=== PATIENT | female | born 1995 | race Caucasian/White ===

== ENCOUNTER → 2019-08-08 10:50 | Outpatient (REF) | payer BC, SELFPAY | LOC: ANHLAB 10:50 | PROVIDERS: Visit Provider Nurse Practitioner Family | DX: D49.2 Neoplasm of unspecified behavior of bone, soft tissue, and skin (principal) | CPT/HCPCS: 88305 ==

== ENCOUNTER 2020-09-09 09:03 | Emergency (ER) | payer OTHER, SELFPAY ==
--- NOTE | 2020-09-09 09:09 | ED.GENADULT ---
HPI - General Adult General Chief complaint: Back Pain/Injury Stated complaint: LOW BACK PAIN/CHEST TIGHTNESS Time Seen by Provider: 09/09/20 09:09 Source: patient Mode of arrival: ambulatory Limitations: no limitations History of Present Illness HPI narrative: 25-year-old female patient presents to the [facility] with complaints of some low back pain that started yesterday as well as some chest tightness that started early this morning. Patient states that she was treated for UTI back in July. Patient states she gets UTIs often. Patient states when she had a UTI at that time she had burning with urination and pain with urination but denies any low back pain at that time. Patient states she started having low back pain yesterday but denies any urinary symptoms. Denies any nausea, vomiting or diarrhea. Denies any fevers, body aches or chills. Patient denies any new exercises or doing any physical labor to where she could have injured her back. Patient denies taking any Tylenol or ibuprofen for her back pain. Patient rates her back pain about a 4 out of 10. Patient denies any numbness or tingling down the legs or any loss of bowel or bladder control. Patient states she has been having trouble sleeping lately and states that she woke up last night with some chest tightness that lasted for about 2 minutes. Patient does have history of anxiety that she is medicated for. Patient denies any chest pain, shortness of breath at this time. Denies any abdominal pain, nausea, vomiting or diarrhea. Related Data Home Medications Medication Instructions Recorded Confirmed venlafaxine 37.5 mg 37.5 mg PO DAILY 07/24/19 capsule,extended release 24 hr bupropion HCl mg PO 09/09/20 clonazepam 09/09/20 lamotrigine 09/09/20 Allergies Allergy/AdvReac Type Severity Reaction Status Date / Time amoxicillin Allergy Unknown hives, Verified 07/24/19 09:04 fever Penicillins Allergy Unknown hives, Verified 07/24/19 09:04 fever Review of Systems Review of Systems: Narrative: CONSTITUTIONAL: Denies fever, chills, or sweats. EYES: Denies visual changes, redness, or discharge. ENT: Denies rhinorrhea, congestion, sore throat, or otalgia. CARDIOVASCULAR: Positive chest pain, denies palpitations, or edema. RESPIRATORY: Denies cough or dyspnea. GASTROINTESTINAL: Denies abdominal pain, nausea, vomiting, or diarrhea. GENITOURINARY: Denies dysuria or hematuria. SKIN: Denies rash or itching. MUSCULOSKELETAL: Positive low back pain, denies joint pain, or myalgia. NEUROLOGIC: Denies headache, numbness, or weakness. PSYCHIATRIC: Denies anxiety or depression. [facility] Past Medical History Medical History (Updated 09/09/20 @ 09:29 by JUNIOR Richter) Anxiety Asthma Exercise-induced Thyroid nodule Surgical History Surgical History (Updated 09/09/20 @ 09:10 by JUNIOR Richter) Hx of tonsillectomy Family History Family History Grandparent Family history of malignant neoplasm of breast Social History Social History Smoking status: Never smoker Alcohol intake: never Comments At the time of my signature I agree with nursing past medical history, surgical, social, and family history. There is no relevant family history pertinent to the presenting complaint. Exam Narrative: Exam Narrative: GENERAL: Well-appearing, well-nourished, and in no acute distress. HEAD: Normocephalic, atraumatic. EYES: PERRLA and EOMI. ENT: Nares clear, no rhinorrhea or epistaxis. Mucous membranes moist. NECK: Supple. No lymphadenopathy CHEST: Clear to auscultation. No respiratory distress. Patient able talk in clear complete sentences. No tripoding noted. HEART: Regular rate and rhythm. No murmur heard. Normal peripheral pulses. ABDOMEN: Soft, nontender, nondistended, normal active bowel sounds. No CVA tenderness on percussion BA
[2020-09-09 09:15] VITALS: BP 120/55; PULSE 78; RESP 20; TEMP 37.3; O2SAT 100
== END 2020-09-09 09:35 | disposition home or self-care (01) ==
PROVIDERS: Emergency Provider Nurse Practitioner Family
DX: F41.9 Anxiety disorder, unspecified (principal); M54.5 Low back pain; J45.990 Exercise induced bronchospasm
CPT/HCPCS: 81003; 87086; 99213; G0463

== ENCOUNTER → 2021-06-14 11:48 | Outpatient (CLI) | payer OTHER, SELFPAY ==
--- NOTE | ~2021-06-14 | US_ITS ---
EXAMINATION: US thyroid EXAM DATE: 06/14/2021 12:01 INDICATION: Nontoxic multinodular goiter TECHNIQUE: Multiple grayscale and Doppler images of the thyroid were obtained (by a technologist who performed the scan) and subsequently reviewed. Individual nodules and recommendations may be reporte d in accordance with TI-RADS system as designated by the 2017 ACR White Paper TI-RADS committee. The re is no prior study for comparison. FINDINGS: The right thyroid lobe measures 4.5 x 1.3 x 1.4 cm, the left measuring 4.0 x 1.0 x 1.3 cm. There is h omogeneous thyroid echogenicity without focal suspicious nodule identified. IMPRESSION: 1. Unremarkable thyroid ultrasound exam. Reviewed, dictated and finalized at location A. [employer]
== END ==
PROVIDERS: PCP Internal Medicine; Visit Provider Internal Medicine
DX: E04.2 Nontoxic multinodular goiter (principal)
CPT/HCPCS: 76536

== ENCOUNTER 2022-07-21 11:24 | Emergency (ER) | payer OTHER, SELFPAY ==
[2022-07-21 11:35] VITALS: BP 110/69; PULSE 89; RESP 16; TEMP 37.2; O2SAT 100
--- NOTE | 2022-07-21 11:44 | ED.ABDPAIN ---
HPI - Abdominal Pain General Chief Complaint: Abdominal Pain Stated Complaint: vomitting, diarrhea, abdominal pain; Time Seen by Provider: 07/21/22 11:45 Source: patient and RN notes reviewed Mode of arrival: ambulatory Limitations: no limitations History of Present Illness HPI narrative: 26-year-old female who is 29 weeks presents with concern of for an episode of vomiting yesterday an episode of diarrhea last night. She has since been having mild left upper quadrant discomfort. She reports fatigue, body aches. Denies fever, chills, sweats, nasal congestion, rhinorrhea. Reports mild cough. She denies taking any medications for her symptoms. She denies known sick contacts. MD elicited complaint: abdominal pain Related Data Home Medications Medication Instructions Recorded Confirmed venlafaxine 37.5 mg 37.5 mg PO DAILY 07/24/19 capsule,extended release 24 hr (Effexor XR) bupropion HCl 300 mg 24 hr tablet, mg PO 09/09/20 extended release clonazepam 1 mg tablet 09/09/20 lamotrigine 200 mg tablet 09/09/20 vits no.130-ferrous fum 1 tablet PO DAILY 07/21/22 07/21/22 27 mg iron-folic acid 800 mcg tablet ( Vitamin) Allergies Allergy/AdvReac Type Severity Reaction Status Date / Time amoxicillin Allergy Unknown hives, Verified 07/21/22 11:51 fever Penicillins Allergy Unknown hives, Verified 07/21/22 11:51 fever Review of Systems Review of Systems: CONSTITUTIONAL: Reports malaise, fatigue. Denies chills, sweats, or fever. ENT: Denies rhinorrhea, congestion, sinus pain, otalgia or sore throat. CARDIOVASCULAR: Denies chest pain, palpitations, or edema. RESPIRATORY: Reports mild cough. Denies dyspnea. GASTROINTESTINAL: Reports left upper quadrant abdominal pain,, 1 episode of vomiting 1 episode of diarrhea. GENITOURINARY: Denies dysuria or hematuria. MUSCULOSKELETAL: Denies myalgia. NEUROLOGIC: Reports headache. All systems reviewed & are unremarkable except as noted in HPI and below PMFSH Past Medical History Medical History (Updated 07/21/22 @ 11:56 by Jessica Fulton NP) Anxiety Asthma Exercise-induced Thyroid nodule Surgical History Surgical History (Updated 09/09/20 @ 09:10 by JUNIOR Richter) Hx of tonsillectomy Family History Family History Grandparent Family history of malignant neoplasm of breast Social History Social History Smoking status: Never smoker Alcohol intake: never Comments At time of signature, agree with nursing past medical, surgical, social and family history. There is no relevant family history pertinent to the presenting complaint Exam Narrative: GENERAL: Well-appearing, well-nourished, and in no acute distress. HEAD: Normocephalic, atraumatic. EYES: PERRLA, conjunctivae clear, and EOMI. ENT: Nares clear, turbinates pink, no rhinorrhea or epistaxis. Mucous membranes moist. Oropharynx without edema, erythema, or lesions. Tonsils not enlarged and without exudate. NECK: Supple. No lymphadenopathy CHEST: Speaks in full sentences. No respiratory distress. HEART: Regular rate and rhythm. ABDOMEN: Mild left upper quadrant tenderness. No guarding, rebound tenderness, or rigidity. Bowel sounds present in all four quadrants. SKIN: Warm, dry, no rash. NEURO: Alert and oriented x3. PSYCH: Normal mood and affect Course Course Emergency Course: Patient is aware of diagnosis, understands and agrees to treatment plan. Anticipatory guidance given. Patient agrees to follow-up as directed and is aware of reasons to seek care at the emergency department. Portions of this record may have been created with voice recognition software Level of Care: Express Care Visit Vital Signs Vital signs: Vital Signs Temperature 98.9 F 07/21/22 11:35 Pulse Rate 89 07/21/22 11:35 Respiratory Rate 16
== END 2022-07-21 12:12 | disposition home or self-care (01) ==
PROVIDERS: Emergency Provider Nurse Practitioner; PCP Internal Medicine
DX: O26.893 Other specified pregnancy related conditions, third trimester (principal); Z3A.29 29 weeks gestation of pregnancy; R10.12 Left upper quadrant pain; Z20.822 Contact with and (suspected) exposure to COVID-19; O99.513 Diseases of the respiratory system complicating pregnancy, third trimester; J45.990 Exercise induced bronchospasm
CPT/HCPCS: 87426; 87804; 99213; C9803; G0463

== ENCOUNTER 2025-04-12 21:13 | Emergency (ER) | payer OTHER, SELFPAY ==
--- OUTSIDE RECORDS SUMMARY | 2025-04-11 09:00 | XMS_ITS | Encounter Summary ---
Author Organization [facility] Address [address] [place] [address] Phone Care Team Providers Care Linen Checker Name Role Phone Chari Slater MD Unavailable Lurdes Stanford MD Unavailable [phone] Ning Alamo NP Unavailable Bella Shukla Primary Care Pr ovider Srikanth Bray MD Unavailable [phone] Encounter Details Date Type Department Care Team (Late st Contact Info) Description 04/11/2025 9:00 AM CDT Office Visit [facility] [address] [place] [address] Norma Padilla PA [address] [place] [address] Arthralgia, unspecified joint (Primary Dx); Encounter for long-term (current) use of medications; Chronic fatigue Social History Tobacco Use Types Packs/Day Years Used Date Smoking Tobacco: Never Smokeless Tobacco: Never [facility] Utilities Answer Date Recorded In the past 12 months has [facility] [email or web address], gas, oil, or water [employer] threatened to shut off services in your home? No 01/19/2024 Humiliation, Afraid, Rape, and Kick questionnair e Answer Date Recorded Within the last year, have y ou been afraid of your partner or ex-partner? No 01/19/2024 Within the last year, have y ou been humiliated or emotionally abused in other ways by your partner or ex-partner? No Within the last year, have y ou been kicked, hit, slapped, or otherwise physically hurt by your partner or ex-partner? No 01/19/2024 Within the last year, have y ou been raped or forced to have any kind of sexual activity by your partner or ex-partner? No 01/19/2024 Social Connection and Isolation Panel Answer Date Recorded In a typical week, how many times do you talk on the phone with family, friends, or neighbors? Three times a week 01/19/2024 How often do you get togethe r with friends or relatives? Three times a week 01/19/2024 How often do you attend chur ch or church services? Never 01/19/2024 Do you belong to any clubs o r organizations such as islam groups, unions, fraternal or athletic groups, or school groups? No 01/19/2024 How often do you attend meet ings of the clubs or organizations you belong to? Never 01/19/2024 Are you , , di vorced, , never , or living with a partner? Never 01/19/2024 AUDIT-C Answer Date Recorded Q1: How often do you have a drink containing alc ohol? 2-4 times a month 12/16/2024 Q2: How many drinks containi ng alcohol do you have on a typical day when you are drinking? 1 or 2 12/16/2024 Q3: How often do you have si x or more drinks on one occasion? Never 12/16/2024 Overall Financial Resource Strain (CARDIA) Answe r Date Recorded How hard is it for you to pa y for the very basics like food, housing, medical care, and heating? Not hard at all 01/19/2024 PHQ-2 Answer Date Recorded PHQ-2 Total Score (If total score is 3 or more points, staff should administer the PHQ-9) 0 03/20/2024 [facility] - Occupational Stress Questionnaire Answer Date Recorded Do you feel stress - tense, restless, nervous, or anxious, or unable to sleep at night because your mind is troubled all the time - these days? Rather much 01/19/2024 Exercise Vital Sign Answer Date Recorde d On average, how many days pe r week do you engage in moderate to strenuous exercise (like a brisk walk)? 1 day 01/19/2024 On average, how many minutes do you engage in exercise at this level? 30 min 01/19/2024 Hunger Vital Sign Answer Date Recorded Within the past 12 months, y ou worried that your food would run out before you got the money to buy more. Never true 01/19/20 24 Within the past 12 months, t he food you bought just didn't last and you didn't have money to get more. Never true 01/19/2024 PRAPARE - Transportation Answer Date Re corded In the past 12 months, has l ack of transportation kept you from medical appointments or from getting medications? No 01/07 In the past 12 months, has l ack of transportation kept you from meetings, work, or from getting things needed for daily living? No 01/19/2024 Housing Stability Vital Sign Answer Tomasz e Recorded In the last 12 months, was t here a time when you were not able to pay the mortgage or rent on time? No 10/02/2022 In the last 12 months, how many places have you lived? 1 10/02/2022 In the last 12 months, was t here a time when you did not have a steady place to sleep or slept in a chcf (including now)? No 10/02/2022 PHQ-9 Answer Date Recorded PHQ-9 Total Score 0 01/19/2024 Housing Stability Vital Sign Answer Tomasz e Recorded In the last 12 months, was t here a time when you were not able to pay the mortgage or rent on time? No 01/19/2024 In the past 12 months, how m any times have you moved where you were living? 0 01/19/2024 At any time in the past 12 m [facility], were you homeless or living in a chcf (including now)? No 01/19/2024 Personal Safety Answer Date Recorded Have you ever been in or are you currently in a harmful physical or emotional relationship or is someone making you feel afraid or unsafe? Denies 06/13/2024 Comments No Sex and Gender Information Value Date Recorded Sex Assigned at Not on file Legal Sex Female 10:26 PM [employer] Gender Identity Not on file Sexual Orientation Not on file documented as of this encounter Last Filed Vital Signs Vital Sign Reading Time Taken Comments Blood Pressure 112/66 04/11/2025 9:03 AM CDT Pulse 84 04/11/2025 9:03 AM CDT Temperature - - Respiratory Rate - - Oxygen Saturation 96% 04/11/2025 9:03 AM CDT Inhaled Oxygen Concentration - - Weight 65.3 kg (144 lb) 04/11/2025 9:03 AM CDT Height 175.3 cm (5' 9) 04/11/2025 9:03 AM CDT Body Mass Index 21.27 04/11/2025 9:03 AM CDT documented in this encounter Progress Notes * Norma Padilla PA - 04/11/2025 9:00 AM CDT Images from the original note were not included. Subjective/Objective Patient ID: Ghazal Bragg is a 29 y.o. female. Chief Complaint Joint pain HPI She has been on hcq for a month but so far has not noticed if her joint pain or stiffness have improved. She has not had any side effects to hcq so far. Denies rashes, diarrhea, tinnitus, pruritus. No hx of sob, kerr, dyspagia. She has appt for her eye exam this month. No infections. She still has daily chronic fatigue. Has to go home at lunch (lives 10 min from work) to take a 30 to 40 minute nap. She gets 8 h of sleep at night and at night has to take melatonin to fall asleep. 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 She types all day, is wearing wrist splints at night to help with hand pain. No hand numbness or tingling of hands. No infections. Does not fall asleep at wheel or sitting. Has not fallen asleep at work. Last pcp had her on adderall which helped fatigue but new pcp does not want to prescribe it since pt does not have dx of add or adhd. No hx of narcolepsy. No hx of sleep apnea. Review of Systems Constitutional: Negative for fatigue and fever. HENT: Negative for mouth sores. Respiratory: Negative for cough, chest tightness and shortness of breath. Cardiovascular: Negative for chest pain. Skin: Negative for rash. Physical Exam Constitutional: She appears well-developed and well-nourished. Head: Normocephalic and atraumatic. Right Ear: External ear normal. Left Ear: External ear normal. Nose: Nose normal. Mouth/Throat: Oropharynx is clear and moist. Eyes: Conjunctivae and lids are normal. Pupils are equal, round, and reactive to light. Neck: Neck supple. Cardiovascular: Normal rate, regular rhythm and normal heart sounds. Pulmonary/Chest: Effort normal and breath sounds normal. Musculoskeletal: see cdai. Lymphadenopathy: No lymphadenopathy. Neurological: Alert and oriented x 3. Skin: Skin is warm and dry. Psychiatric: Normal mood. Vitals reviewed. CDAI: 16 Labs Lab Results Component Value Date WBC 7.8 02/24/2025 HGB 14.0 02/24/2025 HCT 43.8 02/24/2025 MCV 97.1 02/24/2025 Lab Results Component Value Date GLUCOSE 87 02/24/2025 CALCIUM 9.4 02/24/2025 SODIUM 137 02/24/2025 POTASSIUM 4.0 02/24/2025 CO2 28 02/24/2025 CHLORIDE 102 02/24/2025 BUNSER 7 02/24/2025 CREATININE 0.65 02/24/2025 Lab Results Component Value Date ALT 26 02/24/2025 AST 17 02/24/2025 ALKPHOS 57 02/24/2025 BILITOT 0.6 02/24/2025 Lab Results Component Value Date SEDRATE 2 02/24/2025 Lab Results Component Value Date CRP <3.0 02/24/2025 Assessment/Plan Diagnoses and all orders for this visit: Arthralgia, unspecified joint (Primary) Assessment & Plan: Mod cdai. Not sure her joint pain has improved yet but only on hcq for 1 month. Will give it another 2 months and recheck rt hand US. Has hx of high anastasia and + centromere antibody with minimal joint swelling and lot of joint pain and chronic fatigue. Pt does not presently have symptoms of scleroderma except some kerr. We referred tej 03/14/2025 for pft's and Echo but has not done them yet, they are scheduled in a week. Cxr wnl 02/25/2025. On 03/2025 started starting hydroxychloroquine 200mg po every day for her symptoms. Advised her again to get eye exam including oct every year and at start of hcq with opth. F/u in 2 months to recheck labs. She is also requesting that we fill out form for her school to accommodate her symptoms. Previous history: Lupus should be considered although minimal joint swelling. If her pft's or echo are abnormal scleroderma is also a possible diagnosis. Denies dysphagia, has constipation, no skin changes or sclerodactyly on exam. 2 year hx of joint pain and chronic fatigue. Has vaginal dryness, + ANASTASIA. Previous history: US right hand/wrist (02/28/25): 1. No significant joint effusions, power doppler, synovial thickening, tendinopathy, or erosive changes appreciated on US examination. Labs/Imaging 02/2025 [facility]ise panel ---+ ANASTASIA 1:5120/>150. + anti centromere protein B 56 (neg <7). EXAM DESCRIPTION: 1. XR HAND LEFT 3 OR MORE VIEWS 2. XR HAND RIGHT 3 OR MORE VIEWS; 3. XR FOOT RIGHT 3 OR MORE VIEWS; 4. XR FOOT LEFT 3 OR MORE VIEWS; 5. XR SPINE CERVICAL 2 OR 3 VIEWS; 6. XR SPINE LUMBAR 2 OR 3 VIEWS Cervical spine: No acute fracture. No prevertebral soft tissue swelling. Alignment is normal. The intervertebral disc space heights are normal. Lumbar spine: No acute fracture. Alignment is normal. The intervertebral disc space heights are normal. Hands: No erosions. No acute fracture. Alignment is normal. The joint spaces are normal. No dorsal wrist soft tissue swelling. Feet: No erosions. No acute fracture. The joint spaces are normal. IMPRESSION: 1. No radiographic evidence of inflammatory arthritis. 2. Normal cervical and lumbar spine evaluation. 3. Normal bilateral hand and foot evaluation. Orders: - Urinalysis reflex to microscopic; Future - Erythrocyte sedimentation rate; Future - CBC with auto differential; Future - C4 complement; Future - C3 complement; Future - CRP (acute phase); Future - Comprehensive metabolic panel; Future - Protein / creatinine ratio, urine, random; Future - Anti-double stranded DNA abs; Future Encounter for long-term (current) use of medications Assessment & Plan: [facility]ise panel ---+ ANASTASIA 1:5120/>150. + anti centromere protein B 56 (neg <7). Cxr neg 02/25/2025 Referred for echo and PFT's 03/14/2025 Orders: - Urinalysis reflex to microscopic; Future - Erythrocyte sedimentation rate; Future - CBC with auto differential; Future - C4 complement; Future - C3 complement; Future - CRP (acute phase); Future - Comprehensive metabolic panel; Future - Protein / creatinine ratio, urine, random; Future - Anti-double stranded DNA abs; Future Chronic fatigue Assessment & Plan: She still has daily chronic fatigue. Has to go home at lunch (lives 10 min from work) to take a 30 to 40 minute nap. She gets 8 h of sleep at night and at night has to take melatonin to fall asleep. 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 Does not fall asleep at wheel or sitting. Has not fallen asleep at work. Last pcp had her on adderall which helped fatigue but new pcp does not want to prescribe it since pt does not have dx of add or adhd. No hx of narcolepsy. No hx of sleep apnea. Advised her to discuss this with pcp, may need another referral to sleep specialist and see if provigil may be an option for her daily fatigue/sleepiness. Tsh, testosterone wnl. Cortisol was low but unsure of collection time. Labs checked by pcp. Cbc wnl. Cosigned by Srikanth Bray MD at 04/11/2025 4:58 PM CDT documented in this encounter Miscellaneous Notes * Assessment & Plan Note - Norma Padilla PA - 04/11/2025 12:37 PM CDTAssociated Problem(s): Chronic fatigue She still has daily chronic fatigue. Has to go home at lunch (lives 10 min from work) to take a 30 to 40 minute nap. She gets 8 h of sleep at night and at night has to take melatonin to fall asleep. 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 Does not fall asleep at wheel or sitting. Has not fallen asleep at work. Last pcp had her on adderall which helped fatigue but new pcp does not want to prescribe it since pt does not have dx of add or adhd. No hx of narcolepsy. No hx of sleep apnea. Advised her to discuss this with pcp, may need another referral to sleep specialist and see if provigil may be an option for her daily fatigue/sleepiness. Tsh, testosterone wnl. Cortisol was low but unsure of collection time. Labs checked by pcp. Cbc wnl. * Assessment & Plan Note - Norma Padilla PA - 04/11/2025 8:13 AM CDTAssociated Problem(s): Arthralgia Mod cdai. Not sure her joint pain has improved yet but only on hcq for 1 month. Will give it another 2 months and recheck rt hand US. Has hx of high anastasia and + centromere antibody with minimal joint swelling and lot of joint pain and chronic fatigue. Pt does not presently have symptoms of scleroderma except some kerr. We referred tej 03/14/2025 for pft's and Echo but has not done them yet, they are scheduled in a week. Cxr wnl 02/25/2025. On 03/2025 started starting hydroxychloroquine 200mg po every day for her symptoms. Advised her again to get eye exam including oct every year and at start of hcq with opth. F/u in 2 months to recheck labs. She is also requesting that we fill out form for her school to accommodate her symptoms. Previous history: Lupus should be considered although minimal joint swelling. If her pft's or echo are abnormal scleroderma is also a possible diagnosis. Denies dysphagia, has constipation, no skin changes or sclerodactyly on exam. 2 year hx of joint pain and chronic fatigue. Has vaginal dryness, + ANASTASIA. Previous history: US right hand/wrist (02/28/25): 1. No significant joint effusions, power doppler, synovial thickening, tendinopathy, or erosive changes appreciated on US examination. Labs/Imaging 02/2025 Avise panel ---+ ANASTASIA 1:5120/>150. + anti centromere protein B 56 (neg <7). EXAM DESCRIPTION: 1. XR HAND LEFT 3 OR MORE VIEWS 2. XR HAND RIGHT 3 OR MORE VIEWS; 3. XR FOOT RIGHT 3 OR MORE VIEWS; 4. XR FOOT LEFT 3 OR MORE VIEWS; 5. XR SPINE CERVICAL 2 OR 3 VIEWS; 6. XR SPINE LUMBAR 2 OR 3 VIEWS Cervical spine: No acute fracture. No prevertebral soft tissue swelling. Alignment is normal. The intervertebral disc space heights are normal. Lumbar spine: No acute fracture. Alignment is normal. The intervertebral disc space heights are normal. Hands: No erosions. No acute fracture. Alignment is normal. The joint spaces are normal. No dorsal wrist soft tissue swelling. Feet: No erosions. No acute fracture. The joint spaces are normal. IMPRESSION: 1. No radiographic evidence of inflammatory arthritis. 2. Normal cervical and lumbar spine evaluation. 3. Normal bilateral hand and foot evaluation. * Assessment & Plan Note - Norma Padilla PA - 04/11/2025 8:11 AM CDTAssociated Problem(s): Encounter for long-term (current) use of medications Avise panel ---+ ANASTASIA 1:5120/>150. + anti centromere protein B 56 (neg <7). Cxr neg 02/25/2025 Referred for echo and PFT's 03/14/2025 documented in this encounter Plan of Treatment Not on file documented as of this encounter Procedures Procedure Name Priority Date/Time Associated Diagnosis Comments ANTI-DOUBLE STRANDED DNA ANTIBODIES Routine 04/11/2025 9:53 AM CDT Arthralgia, unspecified joint Encounter for long-term (current) use of medications C4 COMPLEMENT Routine 04/11/2025 9:53 AM CDT Arthralgia, unspecified joint Encounter for long-term (current) use of medications URINALYSIS AND REFLEX TO MICROSCOPIC Routine 04/11/2025 9:53 AM CDT Arthralgia, unspecified joint Encounter for long-term (current) use of medications CBC WITH AUTO DIFFERENTIAL Routine 04/11/2025 9:53 AM CDT Arthralgia, unspecified joint Encounter for long-term (current) use of medications PROTEIN / CREATININE RATIO, URINE, RANDOM Routine 04/11/2025 9:53 AM CDT Arthralgia, unspecified joint Encounter for long-term (current) use of medications ERYTHROCYTE SEDIMENTATION RATE Routine 04/11/2025 9:53 AM CDT Arthralgia, unspecified joint Encounter for long-term (current) use of medications C3 COMPLEMENT Routine 04/11/2025 9:53 AM CDT Arthralgia, unspecified joint Encounter for long-term (current) use of medications CRP (ACUTE PHASE) Routine 04/11/2025 9:5 3 AM CDT Arthralgia, unspecified joint Encounter for long-term (current) use of medications COMPREHENSIVE METABOLIC PANEL Routine 04/11/2025 9:53 AM CDT Arthralgia, unspecified joint Encounter for long-term (current) use of medications documented in this encounter Results * Anti-double stranded DNA abs (04/11/2025 9:53 AM CDT) DNA (DS) ab <1 IU/mL [facility] Comment: IU/mL Interpretation < or = 4 Negative 5-9 Indeterminate > or = 10 Positive Blood 04/11/2025 9:53 AM CDT 04/11/2025 9:54 AM CDT Norma CANTOR LAB BLOOD ORDERAB LES Final Result Performing Organization Address City/[facility] Co de Phone Number [facility] [employer] [facility] [address] [place] [address] * (ABNORMAL) Protein / creatinine ratio, urine, random (04/11/2025 9:53 AM CDT) Pathologist [facility] Creatinine, ur 63 20 - 275 mg/dL [facility] Protein/creatin ine ratio 63 24 - 184 mg/g creat [facility] Protein/Creatin ine Ratio 0.063 0.024 - 0.184 mg/mg creat [facility] Protein, ur, quant 4(L) 5 - 24 mg/dL [facility] Urine 04/11/2025 9:53 AM CDT 04/11/2025 9:54 AM CDT Norma CANTOR LAB URINE ORDERAB LES Final Result Performing Organization Address [facility] Co de Phone Number [facility] [employer] [facility] [address] [place] [address] * Comprehensive metabolic panel (04/11/2025 9:53 AM CDT) Pathologist [facility] Glucose 84 65 - 99 mg/dL [facility] Comment: Fasting reference interval BUN 9 7 - 25 mg/dL [facility] Creatinine 0.67 0.50 - 0.96 mg/dL [facility] eGFR 122 > OR = 60 mL/min/1.7 3m2 [facility] BUN/creat ratio SEE NOTE: 6 - 22 (calc) [facility] Comment: Not Reported: BUN and Creatinine are within reference range. Sodium 139 135 - 146 mmol/L [facility] Potassium, pl 4.2 3.5 - 5.3 mmol/L [facility] Chloride 103 98 - 110 mmol/L [facility] CO2 29 20 - 32 mmol/L [facility] Calcium 9.4 8.6 - 10.2 mg/dL [facility] Protein, sr 7.3 6.1 - 8.1 g/dL [facility] Albumin 4.8 3.6 - 5.1 g/dL [facility] GLOBULIN 2.5 1.9 - 3.7 g/dL (calc) [facility] Alb/glob ratio 1.9 1.0 - 2.5 (calc) [facility] Bilirubin, total 0.4 0.2 - 1.2 mg/dL [facility] Alk phos 54 31 - 125 U/L [facility] AST 17 10 - 30 U/L [facility] ALT (SGPT) 21 6 - 29 U/L [facility] Blood 04/11/2025 9:53 AM CDT 04/11/2025 9:54 AM CDT Noram CANTOR LAB BLOOD ORDERAB LES Final Result [facility] [address] [facility] [place] [address] * CRP (acute phase) (04/11/2025 9:53 AM CDT) C-RP <3.0 <8.0 mg/L [facility] Blood 04/11/2025 9:53 AM CDT 04/11/2025 9:54 AM CDT Norma CANTOR LAB BLOOD ORDERAB LES Final Result Performing Organization Address [facility] de Phone Number [facility] [employer] [facility] [address] [place] [address] * C3 complement (04/11/2025 9:53 AM CDT) Complement component C3C 146 83 - 193 mg/dL [facility] Blood 04/11/2025 9:53 AM CDT 04/11/2025 9:54 AM CDT Norma CANTOR LAB BLOOD ORDERAB LES Final Result Performing Organization Address [facility] de Phone Number [employer] [facility] [address] [place] [address] * C4 complement (04/11/2025 9:53 AM CDT) Complement component C4C 21 15 - 57 mg/dL [facility] Blood 04/11/2025 9:53 AM CDT 04/11/2025 9:54 AM CDT Norma CANTOR LAB BLOOD ORDERAB LES Final Result Performing Organization Address [facility] de Phone Number [employer] [address] [place] [address] * (ABNORMAL) CBC with auto differential (04/11/2025 9:53 AM CDT) WBC 5.7 3.8 - 10.8 Thousand/u L [facility] RBC, POC 4.70 3.80 - 5.10 Million/uL [facility] Hgb 14.4 11.7 - 15.5 g/dL [facility] Hct 45.5(H) 35.0 - 45.0 % [facility] MCV 96.8 80.0 - 100.0 fL [facility] MCH 30.6 27.0 - 33.0 pg [facility] MCHC 31.6(L) 32.0 - 36.0 g/dL [facility] Comment: For adults, a slight decrease in the calculated MCHC value (in the range of 30 to 32 g/dL) is most likely not clinically significant; however, it should be interpreted with caution in correlation with other red cell parameters and the patient's clinical condition. Rdw 11.3 11.0 - 15.0 % [facility] Platelets 309 140 - 400 Thousand/u L [facility] MPV 9.8 7.5 - 12.5 fL [facility] Neutrophils, abs 3,682 1,500 - 7,800 cells/uL [facility] Lymphocytes, abs 1,505 850 - 3,900 cells/uL [facility] Monocyte abs 342 200 - 950 cells/uL [facility] Eosinophils, abs 143 15 - 500 cells/uL [facility] Basophils, abs 29 0 - 200 cells/uL [facility] Neutrophils 64.6 % [facility] Lymphocyte pct 26.4 % [facility] Monocytes 6.0 % [facility] Eosinophils 2.5 % [facility] Basophils 0.5 % [facility] Blood 04/11/2025 9:53 AM CDT 04/11/2025 9:54 AM CDT us Norma CANTOR LAB BLOOD ORDERAB LES Final Result [facility] [address] [address] * Erythrocyte sedimentation rate (04/11/2025 9:53 AM CDT) Erythrocyte sedimentation rate 6 < OR = 20 mm/h [facility] Blood 04/11/2025 9:53 AM CDT 04/11/2025 9:54 AM CDT Norma CANTOR LAB BLOOD ORDERAB LES Final Result Performing Organization Address [facility] Co de Phone Number [facility] [address] [place] [address] * Urinalysis reflex to microscopic (04/11/2025 9:53 AM CDT) Color, ur YELLOW YELLOW [facility] Appearance, ur CLEAR CLEAR [facility] Specific gravity 1.010 1.001 - 1.035 [facility] pH, ur 7.0 5.0 - 8.0 [facility] Glucose, ur NEGATIVE NEGATIVE [facility] Bilirubin, ur NEGATIVE NEGATIVE [facility] Ketones, ur NEGATIVE NEGATIVE [facility] Blood, ur NEGATIVE NEGATIVE [facility] Protein, ur, quant NEGATIVE NEGATIVE [facility] Nitrites, ur NEGATIVE NEGATIVE [facility] Leukocyte esterase, ur NEGATIVE NEGATIVE [facility] Urine 04/11/2025 9:53 AM CDT 04/11/2025 9:54 AM CDT Norma CANTOR LAB URINE ORDERAB LES Final Result Performing Organization Address [facility] [facility] Co de Phone Number [facility] [address] [place] [address] documented in this encounter Visit Diagnoses Diagnosis Arthralgia, unspecified joint- Primary Encounter for long-term (current) use of medications Encounter for long-term (current) use of other medications Chronic fatigue Other malaise and fatigue documented in this encounter Care Teams Linen Checker Relationship Specialty Start Date End Date Bella Shukla PA [address] [place] [address] PCP - General Physician Metalsmith Helper 02/24/25 Chari Slater MD [address] [facility] [address] [place] [address] Consulting Physician Obstetrics and Gynecology 12/12/23 Lurdes Stanford MD [address] [place] [address] Surgeon Medical Oncology 12/12/23 [place] [address] Nurse Practitioner Family Medicine 11/29/24 Srikanth Bray MD [address] [place] [address] Consulting Physician Rheumatology 04/11/25 documented as of this encounter
--- NOTE | ~2025-04-12 | XR_ITS ---
Examination: XR chest 2V Clinical History: chest pain Comparison: None Technique: PA and Lateral Findings: Cardiomediastinal silhouette normal size and configuration. Lungs clear. No acute bony abnormality. IMPRESSION: 1. No acute cardiopulmonary findings. Reviewed, dictated and finalized at location R.
--- NOTE | 2025-04-12 21:15 | ECG_ITS ---
Test Date: 2025-04-12 21:19:03 Measurements Intervals [place] Rate: 103 P: 71 [place]: 163 QRS: 86 QRSD: 110 T: 69 QT: 340 QTc: 447 Interpretive Statements SINUS TACHYCARDIA INCOMPLETE RIGHT BUNDLE BRANCH BLOCK MINIMAL Q WAVES- INFERIOR LEADS ANTERIOR INFARCT, AGE INDETERMINATE ABNORMAL ECG No previous ECG available for comparison Electronically Signed On 04-13-2025 08:15:43 CDT by Deyvi Mcknight D.O.
--- OUTSIDE RECORDS SUMMARY | 2025-04-12 21:16 | XMS_ITS | Encounter Summary ---
Author Organization [facility] Address [facility] [place] [address] Care Team Providers Care Child Protective Services Specialist Name Role Phone Yves Jade MD Primary Care Provider [phone] Encounter Details Date Type Department Care Team (Late st Contact Info) Description 02/08/2022 Trackyt Message Enc [facility] [place] [address] [place] [address] [address] [place] [address] [place] [address] [place] [address] [address] [place] [address] Social History Tobacco Use Types Packs/Day Years Used Date Smoking Tobacco: Never Smokeless Tobacco: Never Comments:counseled by Dr Temitope villanueva Alcohol Use Standard Drinks/Week Comments Yes 0 (1 standard drink = 0.6 oz pur e alcohol) socially PHQ-2 Answer Date Recorded PHQ-2 Score - If the patient scores above 3, please move on to questions 3-9 0 02/02/2022 Comments No Sex and Gender Information Value Date Recorded Sex Assigned at Female 09/11/2024 1:27 PM PAVER OPERATOR Legal Sex Female 2:02 PM PAVER OPERATOR Gender Identity Female 09/11/2024 1:27 PM PAVER OPERATOR Sexual Orientation Straight 09/11/2024 1: 30 PM PAVER OPERATOR COVID-19 Exposure Response Date Recorded In the last 10 days, have yo u been in contact with someone who was confirmed or suspected to have Coronavirus/COVID-19? No / Unsure 02/10/2022 7:50 AM CDT documented as of this encounter Plan of Treatment Not on file documented as of this encounter Visit Diagnoses Not on filedocumented in this encounter Additional Health Concerns Infection Onset Date Last Indicated Resolved Time COVID-19 Rule Out 03/07/2022 03/07/2022 03/07/2022 2:05 PM CDT COVID-19 Rule Out 03/07/2022 03/07/2022 03/09/2022 2:18 AM CDT COVID-19 Confirmed 03/07/2022 03/07/2022 12:32 AM CDT COVID-19 Rule Out 06/13/2022 06/13/2022 06/13/2022 1:31 PM PAVER OPERATOR COVID-19 Rule Out 06/13/2022 06/13/2022 06/14/2022 3:36 PM PAVER OPERATOR COVID-19 Confirmed 06/13/2022 06/13/2022 12:32 AM PAVER OPERATOR COVID-19 Rule Out 09/23/2022 09/23/2022 09/23/2022 1:13 PM CDT Respiratory Rule Out 10/02/2024 10/02/2024 025 10:22 AM CDT Assessment Noted Time PHQ-9 Depression Total Score: 0 08/17/19 22 9:06 AM PAVER OPERATOR documented as of this encounter Care Teams Child Protective Services Specialist Relationship Specialty Start Date End Date Yves Jade MD [address] [address] PCP - General INTERNAL MEDICINE 05/25/21 01/28/25 documented as of this encounter
--- OUTSIDE RECORDS SUMMARY | 2025-04-12 21:16 | XMS_ITS | Clinical Summary ---
Author Organization [facility] Address [address] [address] Care Team Providers Care Chronic Disease Epidemiologist Name Role Phone Unavailable Primary Care Provider Unavailabl e Source Comments [facility],non-owned Affiliates and Associated Physician Practices is amultiple site organization consisting of ambulatory clinics and hospital sitesin [place], [place], [place] and [place]. This disclosure is being madepursuant to the Care Everywhere program and may not contain all information available regarding this patient. Last updated 18.[facility] Allergies Active Allergy Reactions Criticality Noted Date Comments Penicillins Urticaria,Fever Medium 04/01/2020 Medications * Be aware that medications may not be up to date on this document. Alwaysverify current medications with the patient. buPROPion HCl (WELLBUTRIN PO) Acti ve clonazePAM (KLONOPIN) 1 MG tablet TK 1 T PO TID 06/02/2020 Active lamoTRIgine (LAMICTAL) 100 MG tablet TK 1 T PO QAM 06/02/2020 Active Social History Tobacco Use Types Packs/Day Years Used Date Smoking Tobacco: Never Smokeless Tobacco: Never Comments Unknown Sex and Gender Information Value Date Recorded Sex Assigned at Not on file Legal Sex Female 3:39 PM PRODUCTION CONTROL PEGBOARD CLERK Gender Identity Not on file Sexual Orientation Not on file Last Filed Vital Signs Vital Sign Reading Time Taken Comments Blood Pressure 110/60 06/19/2020 5:01 PM PRODUCTION CONTROL PEGBOARD CLERK Pulse 70 08/07/2020 9:17 AM PRODUCTION CONTROL PEGBOARD CLERK Temperature 36.8 C (98.3 F) 08/07/2020 9:17 AM PRODUCTION CONTROL PEGBOARD CLERK Respiratory Rate 20 08/07/2020 9:17 AM PRODUCTION CONTROL PEGBOARD CLERK Oxygen Saturation 97% 06/19/2020 5:01 PM PRODUCTION CONTROL PEGBOARD CLERK Inhaled Oxygen Concentration - - Weight 63.5 kg (140 lb) 08/07/2020 9:17 AM PRODUCTION CONTROL PEGBOARD CLERK Height 175.3 cm (5' 9) 06/19/2020 5:01 PM PRODUCTION CONTROL PEGBOARD CLERK Body Mass Index 20.67 06/19/2020 5:01 PM PRODUCTION CONTROL PEGBOARD CLERK Plan of Treatment Health Maintenance Due Date Last Done Comments HIV SCREENING 2011 HEPATITIS C SCREENING 08/25/2014 DTAP/TDAP/TD VACCINES (1 - Tdap) 2015 HEPATITIS B VACCINE (1 of 3 - 19+ 3-dose series) 2015 HPV VACCINE (1 - 3-dose SCDM series) 2023 DEPRESSION SCREENING 07/10/2024 COVID-19 VACCINE (1 - 2023-2 5 season) 2025 INFLUENZA VACCINE (#1) 2025 ZOSTER VACCINE (1 of 2) 2046 HIB VACCINE Aged Out No longer eligi ble based on patient's age to complete this topic MENINGOCOCCAL (Group B) VACC INE SHARED DECISION-MAKING Aged Out No longer eligibl e based on patient's age to complete this topic MENINGOCOCCAL GROUPS A/C/Y/W VACCINE Aged Out No longer eligible b ased on patient's age to complete this topic PNEUMOCOCCAL VACCINE Aged Out No long er eligible based on patient's age to complete this topic Insurance
--- OUTSIDE RECORDS SUMMARY | 2025-04-12 21:16 | XMS_ITS | Data Portability ---
Author Organization [facility] ZIJill Cantu Address [address] [place] [address] Care Team Providers Care Private Branch Exchange Service Advisor Name Role Phone BELLA SHUKLA Primary Care Provider NURIA Esteban Pediatric Care Coordinator [phone] Assessment No assessment recorded. Plan of Treatment Reminders Order Date Submit Date Provider Last Modified By Organization Details Last Modified Time Details Appointments ANY 15 2024 11:15A M DEVAUGHN Ghosh Not available Not available Not available Lab ANASTASIA (antinucl ear antibodie s) screen, serum 2024 025 [facility], [address], [place], [address], 01/31/2025 17:09:17 vitamin D, 25-hydrox y, total, serum 2024 025 [facility], [address], [place], [address], 01/31/2025 17:09:22 vitamin B12 + folate, serum or blood 2024 025 [facility], [address], [place], [address], 01/31/2025 17:09:20 iron + TIBC + ferritin, serum 2024 025 [facility], [address], [place], [address], 01/31/2025 17:09:13 cortisol, am, serum 2024 025 [facility], [address], [place], [address], 01/31/2025 17:09:19 testoster one, total, serum 2024 025 [facility], [address], [place], [address], 01/31/2025 17:09:22 unlisted lab - thyroid peroxidas e and thyroglob ulin antibodie s 2024 025 [facility], [address], [place], [address], 01/31/2025 17:09:14 T3, free, serum or plasma 2024 025 [facility], [address], [place], [address], 01/31/2025 17:09:21 TSH + free T4, serum 2024 025 [facility], [address], [place], [address], 01/31/2025 17:09:15 CMP, serum or plasma 2024 025 [facility], [address], [place], [address], 01/31/2025 17:09:15 CBC w/ auto diff 2024 025 [facility], [address], [place], [address], 01/31/2025 17:09:16 Referral rheumatol ogist referral 2024 025 WALTER Bray MD, [address], [address], [place], [address], 03/14/2025 15:36:43 Procedures None recorded. Surgeries None recorded. Imaging None recorded. Medication Orders None recorded. Patient TargetsNo targets recorded. 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 Referral for Anti-nuclear factor detected Referring Physician: Bella Shukla, Internal Medicine, Encounter Date: 01/27/2025 Results Created Date Observation Date Name Description Value Unit Range Abnormal Flag Note LastModifiedBy Organization Detail LastModifiedTime 01/14/2001/16/2025 Eryth rocyt e sedim entat ion rate [[place]] in Red Blood Cells erythrocyte sedimentatio n rate [velocity] in red blood cells by westergren method 2 mm/h text: < or = 20 Not Available Not Available 01/24/2025 17:38:11 01/14/2001/16/2025 Eryth rocyt e sedim entat ion rate [[place]] in Red Blood Cells Unknown Analyte Perfor ovidio Organi zation Inform ation: Site ID: Name: [facility] s: [id number] [place] [address] Direct or: Glory-L ieu Thi Vo Not Available Not Available 17:38:11 01/14/2001/16/2025 C react efraín prote in [Mass /volu me] in Serum or Plasm a C reactive protein [mass/volume ] in serum or plasma <5.0 high: 8mg/L Not Available Not Available 01/24/2025 17:38:11 01/14/20 25 01/16/2025 C react efraín prote in [Mass /volu me] in Serum or Plasm a Unknown Analyte Perfor ovidio Organi zation Inform ation: Site ID: Name: [facility] Addres s: [id number] [place] [address] Direct or: Glory[facility]L ieu Thi Vo Not Available Not Available 17:38:11 01/29/2001/31/2025 IRON, TIBC AND RENNY TIN PANEL iron, total 51 mcg/d L 40-190 normal Not Available [address], [address], 01/31/2025 17:09:13 01/29/20 25 01/31/2025 IRON, TIBC AND RENNY TIN PANEL iron binding capacity 351 mcg/d L_(ca lc) 250-45 0 normal Not Available [address], [address], 01/31/2025 17:09:13 01/29/20 25 01/31/2025 IRON, TIBC AND RENNY TIN PANEL % saturation 15 %_(ca lc) 16-45 low Not Available [address], [address], 01/31/2025 17:09:13 01/29/20 25 01/31/2025 IRON, TIBC AND RENNY TIN PANEL ferritin 16 NG/mL 16-154 normal Not Available [address], [address], 01/31/2025 17:09:13 01/29/20 25 01/31/2025 THYRO ID PEROX IDASE AND THYRO GLOBU [place] ANTIB ODIES thyroglobuli n antibodies 1 IU/mL < or = 1 Not Available [address], [address], 01/31/2025 17:09:14 01/29/20 25 01/31/2025 THYRO ID PEROX IDASE AND THYRO GLOBU [place] ANTIB ODIES thyroid peroxidase antibodies 1 IU/mL <9 Not Available [address], [address], 01/31/2025 17:09:14 01/29/20 25 01/31/2025 TSH+F REE T4 TSH 1.13 mIU/L normal Refer ence Range > or = 20 Years 0.40- 4.50 Pregn tom Range s First trime ster 0.26- 2.66 Secon d trime ster 0.55- 2.73 Third trime ster 0.43- 2.91 Not Available [address], [address], 01/31/2025 17:09:14 01/29/2001/31/2025 TSH+F REE T4 T4, free 1.1 NG/dL 0.8-1. 8 normal Not Available [address], [address], 01/31/2025 17:09:14 01/29/2001/31/2025 COMPR EHENS EFRAÍN METAB OLIC PANEL glucose 91 mg/dL 65-99 normal Fasti ng refer ence inter lorie Not Available [address], [address], 01/31/2025 17:09:15 01/29/2001/31/2025 COMPR EHENS EFRAÍN METAB OLIC PANEL urea nitrogen (BUN) 9 mg/dL 7-25 normal Not Available [address], [address], 01/31/2025 17:09:15 01/29/2001/31/2025 COMPR EHENS EFRAÍN METAB OLIC PANEL creatinine 0.57 mg/dL 0.50-0 .96 normal Not Available [address], [address], 01/31/2025 17:09:15 01/29/2001/31/2025 COMPR EHENS EFRAÍN METAB OLIC PANEL eGFR 127 mL/mi n/1.7 3m2 > or = 60 normal Not Available [address], [address], 01/31/2025 17:09:15 01/29/20 25 01/31/2025 COMPR EHENS EFRAÍN METAB OLIC PANEL BUN/creatini ne ratio SEE NOTE: (calc ) 6-22 Not Repor zohaib: BUN and Creat inine are withi n refer ence range . Not Available [address], [address], 01/31/2025 17:09:15 01/29/2001/31/2025 COMPR EHENS EFRAÍN METAB OLIC PANEL sodium 137 mmol/ L 135-14 6 normal Not Available [address], [address], 01/31/2025 17:09:15 01/29/2001/31/2025 COMPR EHENS EFRAÍN METAB OLIC PANEL potassium 4.3 mmol/ L 3.5-5. 3 normal Not Available [address], [address], 01/31/2025 17:09:15 01/29/20 25 01/31/2025 COMPR EHENS EFRAÍN METAB OLIC PANEL chloride 103 mmol/ L 98-110 normal Not Available [address], [address], 01/31/2025 17:09:15 01/29/20 25 01/31/2025 COMPR EHENS EFRAÍN METAB OLIC PANEL carbon dioxide 28 mmol/ L 20-32 normal Not Available [address], [address], 01/31/2025 17:09:15 01/29/20 25 01/31/2025 COMPR EHENS EFRAÍN METAB OLIC PANEL calcium 9.0 mg/dL 8.6-10 .2 normal Not Available [address], [address], 01/31/2025 17:09:15 01/29/20 25 01/31/2025 COMPR EHENS EFRAÍN METAB OLIC PANEL protein, total 6.5 g/dL 6.1-8. 1 normal Not Available [address] [place], [address], 01/31/2025 17:09:15 01/29/2001/31/2025 COMPR EHENS EFRAÍN METAB OLIC PANEL albumin 4.3 g/dL 3.6-5. 1 normal Not Available [address], [address], 01/31/2025 17:09:15 01/29/2001/31/2025 COMPR EHENS EFRAÍN METAB OLIC PANEL globulin 2.2 g/dL_ (calc ) 1.9-3. 7 normal Not Available [address], [address], 01/31/2025 17:09:15 01/29/2001/31/2025 COMPR EHENS EFRAÍN METAB OLIC PANEL albumin/glob ulin ratio 2.0 (calc ) 1.0-2. 5 normal Not Available [address], [address], 01/31/2025 17:09:15 01/29/2001/31/2025 COMPR EHENS EFRAÍN METAB OLIC PANEL bilirubin, total 0.4 mg/dL 0.2-1. 2 normal Not Available [address], [address], 01/31/2025 17:09:15 01/29/2001/31/2025 COMPR EHENS EFRAÍN METAB OLIC PANEL alkaline phosphatase 55 U/L 31-125 normal Not Available [facility] [employer] [address] [address] [place], [address], 01/31/2025 17:09:15 01/29/2001/31/2025 COMPR EHENS EFRAÍN METAB OLIC PANEL AST 12 U/L 10-30 normal Not Available [address], [address], 01/31/2025 17:09:15 01/29/2001/31/2025 COMPR EHENS EFRAÍN METAB OLIC PANEL ALT 12 U/L 6-29 normal Not Available [address], [address], 01/31/2025 17:09:15 01/29/2001/31/2025 CBC (INCL UDES DIFF/ PLT) white blood cell count 4.9 thous and/u L 3.8-10 .8 normal Not Available [address], [address], 01/31/2025 17:09:16 01/29/2001/31/2025 CBC (INCL UDES DIFF/ PLT) red blood cell count 4.20 gary on/uL 3.80-5 .10 normal Not Available [address], [address], 01/31/2025 17:09:16 01/29/2001/31/2025 CBC (INCL UDES DIFF/ PLT) hemoglobin 12.9 g/dL 11.7-1 5.5 normal Not Available [address], [address], 01/31/2025 17:09:16 01/29/2001/31/2025 CBC (INCL UDES DIFF/ PLT) hematocrit 39.8 % 35.0-4 5.0 normal Not Available [address], [address], 01/31/2025 17:09:16 01/29/2001/31/2025 CBC (INCL UDES DIFF/ PLT) MCV 94.8 fL 80.0-1 00.0 normal Not Available [address], [address], 01/31/2025 17:09:16 01/29/2001/31/2025 CBC (INCL UDES DIFF/ PLT) MCH 30.7 pg 27.0-3 3.0 normal Not Available [address], [address], 01/31/2025 17:09:16 01/29/2001/31/2025 CBC (INCL UDES DIFF/ PLT) MCHC 32.4 g/dL 32.0-3 6.0 normal For adult s, a sligh t decre ase in the calcu lated MCHC value (in the range of 30 to 32 g/dL) is most likel y not clini brisa signi fican t; jing er, it shoul d be inter prete d with cauti on in [facility] lat n with other red cell josephine eters and the patie nt's clini bradley condi tion. Not Available [address], [address], 01/31/2025 17:09:16 01/29/2001/31/2025 CBC (INCL UDES DIFF/ PLT) RDW 11.6 % 11.0-1 5.0 normal Not Available [address], [address], 01/31/2025 17:09:16 01/29/2001/31/2025 CBC (INCL UDES DIFF/ PLT) platelet count 249 thous and/u L 140-40 0 normal Not Available [address], [address], 01/31/2025 17:09:16 01/29/2001/31/2025 CBC (INCL UDES DIFF/ PLT) MPV 11.0 fL 7.5-12 .5 normal Not Available [address], [address], 01/31/2025 17:09:16 01/29/2001/31/2025 CBC (INCL UDES DIFF/ PLT) absolute neutrophils 3214 cells /uL 1500-7 800 normal Not Available [facility] [address], [place], [address], 01/31/2025 17:09:16 01/29/2001/31/2025 CBC (INCL UDES DIFF/ PLT) absolute lymphocytes 1220 cells /uL 850-39 00 normal Not Available [address], [address], 01/31/2025 17:09:16 01/29/2001/31/2025 CBC (INCL UDES DIFF/ PLT) absolute monocytes 279 cells /uL 200-95 0 normal Not Available [address], [address], 01/31/2025 17:09:16 01/29/2001/31/2025 CBC (INCL UDES DIFF/ PLT) absolute eosinophils 157 cells /uL 15-500 normal Not Available [address], [address], 01/31/2025 17:09:16 01/29/2001/31/2025 CBC (INCL UDES DIFF/ PLT) absolute basophils 29 cells /uL 0-200 normal Not Available [address], [address], 01/31/2025 17:09:16 01/29/2001/31/2025 CBC (INCL UDES DIFF/ PLT) neutrophils 65.6 % normal Not Available [address], [address], 01/31/2025 17:09:16 01/29/2001/31/2025 CBC (INCL UDES DIFF/ PLT) lymphocytes 24.9 % normal Not Available [address], [address], 01/31/2025 17:09:16 01/29/2001/31/2025 CBC (INCL UDES DIFF/ PLT) monocytes 5.7 % normal Not Available [facility] [address] [address] [place], [address], 01/31/2025 17:09:16 01/29/2001/31/2025 CBC (INCL UDES DIFF/ PLT) eosinophils 3.2 % normal Not Available [facility] [address] [address] [place], [address], 01/31/2025 17:09:16 01/29/2001/31/2025 CBC (INCL UDES DIFF/ PLT) basophils 0.6 % normal Not Available [facility] [address] [address] [place], [address], 01/31/2025 17:09:16 01/29/2001/31/2025 ANASTASIA MULTI PLEX W/REF VIJAYA 11 AB CASCA DE ANASTASIA screen, immunoassay POSITI VE negati ve abnormal A posit efraín ANASTASIA Multi plex indic ates the prese nce of detec table antib odies to one or more of the compo nent marcellus felipa consi sting of doubl e stran ded DNA (dsDN A), chrom atin, ribon ucleo prote in (SUBMARINE CABLE EQUIPMENT TECHNICIAN) , Pena /SUBMARINE CABLE EQUIPMENT TECHNICIAN (Sm/R ROTOR CASTING MACHINE SETUP OPERATOR), Pena (Sm), SS-A, SS-B, Ana-1, centr omere B, Scl-7 0 and ribos omal P. Furth er labor atory testi ng may be consi dered if clini brisa indic ated. For addit ional infor eitan coats e refer to http: //[facility] rafa Antunez stDia gnost ics.c om/fa q/FAQ 177 (This link is being provi ded for infor nina warren/ educa marybeth l purpo ses only. ) Not Available [address] [address] [place], [address], 01/31/2025 17:09:17 01/29/2001/31/2025 TIER 1 DNA (ds) antibody <1 IU/mL normal IU/mL Inter preta tion < or = 4 Negat efraín 5-9 Indet ermin ate > or = 10 Posit efraín Not Available [address], [address], 01/31/2025 17:09:18 01/29/2001/31/2025 TIER 1 sm antibody <1.0 NEG ai <1.0 neg normal Not Available [address], [address], 01/31/2025 17:09:18 01/29/2001/31/2025 TIER 1 sm/web engineer antibody <1.0 NEG ai <1.0 neg normal Not Available [address], [address], 01/31/2025 17:09:18 01/29/2001/31/2025 TIER 1 web engineer antibody <1.0 NEG ai <1.0 neg normal Not Available [address], [address], 01/31/2025 17:09:18 01/29/2001/31/2025 TIER 1 chromatin (nucleosomal ) antibody <1.0 NEG ai <1.0 neg normal Not Available [address], [address], 01/31/2025 17:09:18 01/29/2001/31/2025 TIER 2 sjogren's antibody (ss-A) <1.0 NEG ai <1.0 neg normal Not Available [address], [address], 01/31/2025 17:09:18 01/29/2001/31/2025 TIER 2 sjogren's antibody (ss-B) <1.0 NEG ai <1.0 neg normal Not Available [address] [place], [address], 01/31/2025 17:09:18 01/29/20 25 01/31/2025 TIER 2 scl-70 antibody <1.0 NEG ai <1.0 neg normal Not Available [address] [address] [place], [address], 01/31/2025 17:09:18 01/29/2001/31/2025 TIER 2 ana-1 antibody <1.0 NEG ai <1.0 neg normal Not Available [facility] [address] [address] [place], [address], 01/31/2025 17:09:18 01/29/2001/31/2025 TIER 3 centromere B antibody 3.4 POS ai <1.0 neg abnormal Not Available [address] [address] [place], [address], 01/31/2025 17:09:19 01/29/2001/31/2025 TIER 3 ribosomal P antibody <1.0 NEG ai <1.0 neg normal ANTIB REID PREVA LENCE IN TIER 3 Tier 3 antib odies targe t centr omere B and ribos omal P. Centr omere B antib reid is prese nt in 27% syste aaron scler osis (scle roder ma), 66% CREST syndr ome (Calc inosi s, Rebecca ud's pheno maribell , Esoph ageal dysmo tilit y, Scler odact yly, and Telan giect maulik) , 3% to 12% syste aaron lupus eryth emato maddison (SLE) , 7% mixed conne ctive tissu e disea se (MCTD )(typ icall y with featu res of polym yosit is) and <2% Sjogr en's syndr ome, polym yosit is and mavis l blood donor s. Ribos omal P antib reid is prese nt in 9% to 30% SLE and is assoc iated with neuro logic al manif estat ions, 7% MCTD and <2% Sjogr en's syndr ome, syste aaron scler osis, polym yosit is and mavis l blood donor s. The [place] does not rule out autoi mmune disea se abel cteri zed by other autoa ntibo dy speci ficit ies such as rheum atoid arthr itis, autoi mmune hepat itis, prima ry bilia ry cirrh osis, autoi mmune thyro iditi s, Nohemy on's disea se, perni cious anemi a, autoi mmune neuro pathi es, vascu litis , griffin c disea se and bullo us disea se. Pleas e conta ct your local [facility] if you are inter ested in addit ional testi ng. Not Available [facility] [address] [address] [place], [address], 01/31/2025 17:09:19 01/29/2001/31/2025 INTER PRETA TION interpretati on Centr omere B antib reid is assoc iated with the CREST Syndr ome: calci nosis , Rebecca ud's pheno maribell , esoph ageal dysmo tilit y, scler odact yly, and telan giect asias . Not Available [facility] [address] [address] [place], [address], 01/31/2025 17:09:19 01/29/2001/31/2025 CORTI AAKASH, A.M. cortisol, A.M. 12.3 mcg/d L normal Refer ence Range 8 a.m. (7-9 a.m.) Speci men: 4.0-2 2.0 Not Available [facility] [address] [address] [place], [address], 01/31/2025 17:09:19 01/29/2001/31/2025 VITAM IN B12/F OLATE , SERUM PANEL vitamin B12 554 pg/mL 200-11 00 normal Not Available [facility] [address] [address] [place], [address], 01/31/2025 17:09:20 01/29/2001/31/2025 VITAM IN B12/F OLATE , SERUM PANEL folate, serum 22.3 NG/mL normal Refer ence Range Low: <3.4 Borde rline : 3.4-5 .4 Mavis l: >5.4 Not Available [address] [address] [place], [address], 01/31/2025 17:09:20 01/29/2001/31/2025 T3, FREE T3, free 3.0 pg/mL 2.3-4. 2 normal Not Available [facility] [address] [address] [place], [address], 01/31/2025 17:09:21 01/29/2001/31/2025 VITAM IN D,25- OH,TO ALEX,I A vitamin D,25-oh,tota l,ia 52 NG/mL 30-100 normal Vitam in D Statu s 25-OH Vitam in D: Defic iency : <20 ng/mL Insuf ficie ncy: 20 - 29 ng/mL Optim al: > or = 30 ng/mL For 25-OH Vitam in D testi ng on patie nts on D2-duenas pplem entat ion and patie nts for whom quant itati on of D2 and D3 fract ions is requi red, the [facility] eD(TM ) 25-OH VIT D, (D2,D 3), LC/MS /MS is recom tevin d: order code [id number] (thiago ents >2yrs ). See Note 1 Note 1 For addit ional infor eitan coats refer to http: //[facility] rafa jeanQue stDia gnost ics.c om/fa q/FAQ 199 (This link is being provi ded for infor nina warren/ christal villatoro purpo ses only. ) Not Available [facility] [employer] [address] [address] [place], [address], 01/31/2025 17:09:22 01/29/2001/31/2025 TESTO STERO NE, TOTAL , MS testosterone , total, MS 20 NG/dL 2-45 For addit ional infor eitan coats e refer to https ://ed ucati on.qu estdi Reframed.tvs. com/f aq/To Justina augustine MSM S (This link is being provi ded for infor nina nal/e ducat ional purpo ses only. ) (Note ) This test was devel oped and its marcellus tical perfo rmanc e abel cteri stics have been deter mined by [employer]. It has not been clear ed or appro christa by the FDA. This assay has been valid ated pursu ant to the CLIA regul ation s and is used for clini bradley purpo ses. MDF med fusio n [address] [facility] [address] [facility] [address] [phone] Harvey Arvizu MD, PhD Not Available [employer] [address] [address] [place], [address], 01/31/2025 17:09:22 Result Notes None recorded. Problems Name Problem SNOMED Code Status Onset Date Resolution Date Notes Provider Name and Address Organization Details Recorded Time Body mass index 20-24 - normal 012898031 Active 2024 DEVAUGHN Ghosh Attn: Fawad arana,[address] [place], [address], [facility] 5 11:03:28 Positive screening for depression on PHQ-9 (Patient Health Questionnai re 9) [id number] 00 Active 2024 DEVAUGHN Ghosh Attn: Fawad arana,[address] [place], [address], [place] [facility] 5 11:03:28 Mixed anxiety and depressive disorder 561899394 Active 2024 DEVAUGHN Ghosh Attn: Fawad arana,[address] [place], [address], [place] 5 11:03:30 Vitamin D deficiency 55745069 Active 2024 DEVAUGHN Ghosh Attn: Fawad arana,[address] [facility], [place], [address], [facility] - SI 5 11:03:31 Fatigue 33265968 Active 2024 DEVAUGHN Ghosh Attn: Fawad arana,[address] [facility], [place], [address], [facility] - [facility]IF 5 11:03:32 Anti-nuclea r factor detected 417491959 Active 2024 DEVAUGHN Ghosh Attn: Fawad arana,[address] [facility], [place], [address], [facility] - SIF 5 11:03:34 Problem Notes None recorded. Procedures Surgical History Date Name Laterality Status Provider Name and Address Organization Details Recorded Time Tonsillectomy completed Debby Velásquez MA [facility] 01/27/2025 10:37:49 Imaging Results None recorded. Procedure Notes None recorded. Medical Equipment None Reported. Allergies Allergen ID Allergen Name Allergen Category Reaction Reaction Severity Criticality Documentation Date Start Date Code Code System Note Provider Name and Address Organization Details Recorded Time 653218 amoxicill in medicatio n Not available Not available Not available 01/27/20252018 723 RxNorm [facility] 10:[facility]19 308549 Product containin g penicilli n (product) medicatio n fever hives Not available Not available high 01/27/20252016 84898 8001 SNOMED [facility] 10:31[facility]26 Medications Name Sig Start Date Stop Date Status Note LastModified by Organization Details LastModified Time oxcarbazepi ne 150 mg tablet TAKE 1 TABLET BY MOUTH EVERY MORNING AND EVERY NIGHT AT BEDTIME 01/27 completed Not Available Not Available Not Available venlafaxine ER 75 mg capsule,ext ended release 24 hr TAKE 1 CAPSULE BY MOUTH EVERY MORNING 01/27 completed Not Available Not Available Not Available doxycycline hyclate 100 mg capsule TAKE 1 CAPSULE BY MOUTH TWICE DAILY WITH FOOD 01/24 completed Not Available Not Available Not Available dextroamphe tamine-amph etamine 10 mg tablet TAKE 1/2 TABLET BY MOUTH IN THE MORNING AND AT NOON active Not Available Not Available No t Available ciprofloxac in 500 mg tablet TAKE 1 TABLET BY MOUTH EVERY 12 HOURS active Not Available Not Available No t Available ergocalcife rol (vitamin D2) 1,250 mcg (50,000 unit) capsule TAKE 1 CAPSULE BY MOUTH 1 TIME A WEEK active Not Available Not Available No t Available methylpredn isolone 4 mg tablets in a dose pack FOLLOW PACKAGE DIRECTION S 01/27 completed Not Available Not Available Not Available dextroamphe tamine-amph etamine 5 mg tablet TAKE 1/2 TABLET BY MOUTH IN THE MORNING AND IN THE AFTERNOON 01/27 completed Not Available Not Available Not Available azelaic acid 15 % topical gel APPLY SMALL AMOUNT TOPICALLY TO THE AFFECTED AREA TWICE DAILY 01/27 completed Not Available Not Available Not Available duloxetine 30 mg capsule,del ayed release TAKE 1 CAPSULE BY MOUTH EVERY MORNING active Not Available Not Available No t Available duloxetine 60 mg capsule,del ayed release TAKE 1 CAPSULE BY MOUTH EVERY MORNING 01/27 completed Not Available Not Available Not Available biotin active OTC Not Available Not Availa ble Not Available Addyi 100 mg tablet TAKE 1 TABLET BY MOUTH DAILY active Not Available Not Available No t Available Vitals Date Recorded Respiratory rate Oxygen saturation Oxygen saturation in Arterial blood by Pulse oximetry Systolic And Diastolic Provider Name and Address Organization Details Last Updated DateTime 01/27/2025 16 /min 99 % 99 % 110/80 mm[Hg] DEVAUGHN Ghosh Attn: Fawad arana,[address] [place], [address], [facility] 11:06:11 Date Recorded Body weight Body mass index (BMI) Body height Heart rate Systolic And Diastolic Provider Name and Address Organization Details Last Updated DateTime 01/27/2025 [address].15 g 20.2 kg/m2 175.26 cm 64 /min 116/80 mm[Hg] Debby Velásquez MA [facility] 01/27/2025 10:36:04 Social History Question Answer Notes LastModified by Organizat ion Details LastModified Time Tobacco Smoking Status Never Smoker Debby Velásquez MA null, [facility] 01/27/2025 10:38:40 Do You Have An Advance Directive? No Information not available 01/27/2025 Are You Blind Or Do You Have Difficulty Seeing? Yes GLASSES Information not available 01/27/2025 What Is Your Level Of Caffeine Consumption? Occasional SODA/ COFFEE/ TEA Information not available 01/27/2025 In The 14 Days Before Symptom Onset, Have You Had Close Contact With A Laboratory-confir med COVID-19 While That Case Was Ill? No Information not available 01/27/2025 In The 14 Days Before Symptom Onset, Have You Had Close Contact With A Person Who Is Under Investigation For COVID-19 While That Person Was Ill? No Information not available 01/27/2025 Have You Been To An Area Known To Be High Risk For COVID-19? No Information not available 01/27/2025 Are You Deaf Or Do You Have Serious Difficulty Hearing? No Information not available 01/27/2025 What Type Of Diet Are You Following? REGULAR Information not available 01/27/2025 Are There Any Guns Present In Your Home? No Information not available 01/27/2025 What Was The Date Of Your Most Recent Tobacco Screening? 01/27/2025 Information not available 01/27/2025 What Is Your Relationship Status? Single Information not available 01/27/2025 Do You Use Your Seat Belt Or Car Seat Routinely? Yes Information not available 01/27/2025 Do You Have Smoke And Carbon Monoxide Detectors In Your Home? Yes Information not available 01/27/2025 Do You Use Sunscreen Routinely? Yes Information not available 01/27/2025 Has Tobacco Cessation Counseling Been Provided? No Information not available 01/27/2025 Sex: Unknown Functional Status Question Answer Note LastModified by Organizat ion Details LastModified Time Do you use any illicit or recreational drugs? No Information not available 01/27/2025 Do you or have you ever used any other forms of tobacco or nicotine? No Information not available 01/27/2025 What is your level of alcohol consumption? Occasional Information not available 01/27/2025 Are you currently employed? Yes Information not available 01/27/2025 Are you able to care for yourself independently? Yes Information not available 01/27/2025 What is your exercise level? None Information not available 01/27/2025 Mental Status None recorded. Family History Relationship Description Onset Age of this Age Resolved Age Notes LastModified by Organization Details LastModified Time Father Depressive disorder tcarterma Not available 2024 10:38:20 Father Hypertensive disorder tcarterma Not available 2024 10:38:26 Father Hypercholest erolemia tcarterma Not available 2024 10:38:30 Medical History Condition Response Coronary Artery Disease N Other N Atrial Fibrillation N High Blood Pressure N Kidney or Bladder Problems N Thyroid Problems N GI Problems N Depression Y COPD N Blood Clots N Have you had a mammogram in the last yea r? N Skin Problems N Anemia N Heart Attack (AK) N Anxiety Disorder Y Diabetes N Muscle, Joint, or Bone Problems N Seizures/Epilepsy N Have you had a colonoscopy in the last 1 0 years? N Acid Reflux (GERD) N Cancer N Stroke N Asthma N Allergies Y Have you had a PSA blood test in the las t year? N High Cholesterol N Hepatitis N Liver Disease N Headaches N Heart Failure N Osteoporosis N Gynecological History Statement/Question Response Menses Monthly Y Current Control Method None Date of LMP 01/20/2025 LMP Approximate Obstetrics History GPAL:G 2 P 2 0 0 2 Type Value Multiple Births 0 Full Term 2 Induced 0 Spontaneous 0 Premature 0 Living 2 Total 2 Immunizations Vaccine Type Date Status Note Provider Nam e and Address Organization Details Recorded Time Meningococcal MCV4O 5 completed Not Available [facility] 01/27/2025 10:19:19 Influenza, split virus, quadrivalent, PF 0 completed Not Available [facility] 01/27/2025 10:19:19 COVID-19, mRNA, LNP-S, PF, 100 mcg/0.5mL dose or 50 mcg/0.25mL dose 1 completed Not Available [facility] 01/27/2025 10:19:19 COVID-19, mRNA, LNP-S, PF, 100 mcg/0.5mL dose or 50 mcg/0.25mL dose 1 completed Not Available [facility] 01/27/2025 10:19:19 Influenza, split virus, quadrivalent, PF 1 completed Not Available [facility] 01/27/2025 10:19:19 COVID-19, mRNA, LNP-S, PF, 100 mcg/0.5mL dose or 50 mcg/0.25mL dose 1 completed Not Available [facility] 01/27/2025 10:19:19 HPV9 2 completed Not Available [facility] 01/27/2025 10:19:19 HPV9 2 completed Not Available [facility] 01/27/2025 10:19:19 Influenza, split virus, quadrivalent, PF 2 completed Not Available [facility] 01/27/2025 10:19:19 Tdap 3 completed Not Available [facility] 01/27/2025 10:19:19 Influenza, split virus, quadrivalent, PF 3 completed Not Available [facility] 01/27/2025 10:19:19 influenza, unspecified formulation 4 completed Not Available [facility] 01/27/2025 10:19:19 Past Encounters Encounter ID Performer Location Encounter Start Date Encounter Closed Date Diagnosis/Indication Diagnosis SNOMED-CT Code Diagnosis ICD10 Code Diagnosis IMO Codes Diagnosis Note [id number] Elvis Momin MD [facility] [address] [facility] [address] [place] [id number] 1 01/27/2025 10:16:40 01/27/2025 13:48:08 Body mass index 20-24 - normal 098707467 Z68.20 [id number] BMI 20.2 Positive s creening for depression on PHQ-9 (Patient Health Questionnaire 9) 3197165173 88098 Z13.31 [id number] Patient scored a 10 on screening today a lot of this is related to her chronic fatigue Fatigue 36862729 R53.82 [id number] Patient is on Adderall 10 mg half a tablet twice daily from previous PCP. We will not be utilizing this medication for treatment of chronic fatigue if she wants to continue taking this, which she does not. She would have to see a different provider.S o has completed a home sleep study which was negative.T o further evaluate her chronic fatigue we are going to order vitamin B12 and folate, iron studies, and morning cortisol, testostero ne, thyroid antibodies full thyroid panel. Routine CBC and CMP ordered again. Mixed anxi ety and depressive disorder 132272515 F41.9 F32.A [id number] Currently on duloxetine 30 mg daily. She does feel that this is stable. We will not make any dosing modificati ons at this time. Anti-nucle ar factor detected [id number] R76.8 [id number] ANASTASIA positive viewed on her [facility] portal from previous PCP. Only a double-str anded antibody was completed which was negative but we will send her for a full multiplex reflex 11 antibody cascade and go ahead and refer her to Violeta mazariegos. She has been unsuccessf ul in getting scheduled with a rheumatthierry triana from her last PCP. Vitamin D deficiency 347 29705 E55.9 72909 Continue high-dose supplement 88345 units weekly Health Concerns Section Related Observation LastModified by Organization Detai ls LastModified Time None Recorded Concern Status LastModified by Organization Details LastModified Time None Recorded Advance Directives Directive N: Payers Insurance Date Sequence Insurance Name Policy Number Policy Rosen Covered Member ID Rosen Member ID Guarantor Name 02/10/2025 1 [employer] [id number] Ghazal Bragg [id number] Ghazal Bragg Notes Date Note Type Note Provider Name and Address Organization Details Recorded Time 01/28/20 25 text/ht ml FatigueReported by PatientHPIFor severity, patient reportsworseningbut reportsnormal sleep patterns,normal exercise habits, andnormal activity. For timing, patient reportsworse. For context, patient reportssymptoms do not improve on weekends/vacationsbut reportsno problems/stress at work or home. For associated symptoms, patient reportsdepressionandanxietybut reportsno drug/alcohol withdrawal,no sleep disturbances,no snoring,periods of not breathing (apnea) have not been observed, andno recent change in weight. For quality, patient reportscontinuous. For duration, patient reportsconstant. For modifying factors, patient reportsno new stressors in lifeandtaking vitamins. Patient was recommended by an existing patient. She is looking for a new PCP. She has ongoing chronic fatigue with no conclusive diagnosis. She has had quite a bit of evaluation already ordered and completed from previous provider.Patient has a history of vitamin-D deficiency on supplement DEVAUGHN Ghosh Attn: Accounting, [address] [place], [address], [place] - [facility] 02/10/2025 12:34:50 OBGyn Episode No OBEpisode recorded.
--- OUTSIDE RECORDS SUMMARY | 2025-04-12 21:16 | XMS_ITS | Clinical Summary ---
Author Organization [facility] Address [address] [place] [address] Care Team Providers Care Associate Curator Name Role Phone Unavailable Primary Care Provider Unavailabl e Allergies Active Allergy Reactions Criticality Noted Date Comments Penicillins Other (see comment),Hives High 7 Medications [place] 3 1000 MG Cap Take 2 g by mouth daily. Active Azelaic Acid 15 % gel APPLY SMALL AMOUNT TOPICALLY TO THE AFFECTED AREA TWICE DAILY 5 Active vitamin D2, ergocalciferol, (DRISDOL) 1.25 mg capsuleIndicatio ns:Vitamin D deficiency Take 1 capsule (1.25 mg total) by mouth every 7 days. 12 capsule 3 5 Active methylPREDNISolo SUSANA perez, (MEDROL DOSEPAK) 4 MG tabletIndication s:URTI (acute upper respiratory infection) 6 TABLETS ON DAY ONE, 5 TABLETS DAY TWO, 4 TABLETS DAY THREE, 3 TABLETS DAY FOUR, 2 TABLETS DAY FIVE, AND 1 TABLET DAY SIX 1 each 5 Active DULoxetine (CYMBALTA) 30 MG capsuleIndicatio ns:SUSAN (generalized anxiety disorder),Mild episode of recurrent major depressive disorder Take 1 capsule (30 mg total) by mouth nightly at bedtime. 30 capsule 1 5 Active amphetamine-dext roamphetamine (ADDERALL) 10 MG tabletIndication s:Chronic fatigue syndrome Take half a tablet in the morning and half a tablet at noon. 30 tablet 5 Active Active Problems Problem Noted Date Diagnosed Date Penicillin allergy 08/04/2022 Overview (09/23/2022): Hives as [ ] management analyst referral Deviated nasal septum 11/18/2021 Hypertrophy of both inferior nasal turbinates Nasal obstruction 11/18/2021 Snoring 11/18/2021 Vitamin D deficiency 05/26/2021 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 05/25/2021 Overview (05/25/2021): On Fluoxetine and follow up with PCP SUSAN (generalized anxiety disorder) 05/25/2021 History of thyroid nodule 05/25/2021 CHI (closed head injury) 02/11/2017 Fall 02/11/2017 Encounters Date Type Department Care Team Description 03/04[facility] [place] [id number] [facility] [address] [place] [address] Yves Jade MD Medication 01/27/2025 Telephone [facility] [place] [address] [facility] [address] [place] [address] Yves Jade MD Record Request 01/16/2025 Telephone [facility] [place] [address] [facility] [address] [place] [address] Yves Jade MD Referral 01/13/2025 Orders Only [facility] [place] [address] [facility] [address] [place] [address] Yves Jade MD 01/13/2025 MyChart [facility] [place] [address] [facility] [address] [place] [address] Yves Jade MD Urgent from Last 3 Months Immunizations Immunization Administration Dates Next Due Fluzone 6 Months+ Quad (0.5 mL Prefilled Syringe) 04/17/2023 HPV GARDASIL 9-VALENT 12/07/2021,10/12/2021 Influenza Adult (Generic) 05/05/2022,04/15/2021, 04/02/2020 MENINGOCOCCAL A C Y&W-135 ol igosaccharide (MENVEO) 05/05/2015 MODERNA COVID-19 (12+) MRNA, LNP-S, PF, 100 MCG/ 0.5 ML DOSE 05/12/2021,09/28/2020,08/19/2020 Tdap (Generic) 08/04/2022,05/25/2018 Family History Medical History Relation Comments No Known Problems Father Breast Cancer Maternal Grandmother No Known Problems Mother Relation Status Comments Father Alive Maternal Grandmother Mother Alive Social History Tobacco Use Types Packs/Day Years Used Date Smoking Tobacco: Never Smokeless Tobacco: Never Tobacco Cessation:Counseling Given: Yes Comments:counseled by Dr Jade Alcohol Use Standard Drinks/Week Comments Yes 0 (1 standard drink = 0.6 oz pur e alcohol) socially PHQ-2 Answer Date Recorded Patient Health Questionnaire-2 Score 1 10/02/2024 Comments No Sex and Gender Information Value Date Recorded Sex Assigned at Female 09/11/2024 1:27 PM HOME SERVICE TECHNICIAN Legal Sex Female 2:02 PM HOME SERVICE TECHNICIAN Gender Identity Female 09/11/2024 1:27 PM HOME SERVICE TECHNICIAN Sexual Orientation Straight 09/11/2024 1: 30 PM HOME SERVICE TECHNICIAN Last Filed Vital Signs Vital Sign Reading Time Taken Comments Blood Pressure 114/64 10/02/2024 9:15 AM CDT Pulse 71 10/02/2024 9:15 AM CDT Temperature 36.6 C (97.8 F) 10/02/2024 9:15 AM CDT Respiratory Rate 18 10/02/2024 9:15 AM CDT Oxygen Saturation 98% 10/02/2024 9:15 AM CDT Inhaled Oxygen Concentration - - Weight 62.7 kg (138 lb 3.2 oz) 10/02/2024 9:15 A M CDT Height 172.7 cm (5' 8) 10/02/2024 9:15 AM CDT Body Mass Index 21.01 10/02/2024 9:15 AM CDT Plan of Treatment Health Maintenance Due Date Last Done Comments Hepatitis B Vaccines (1 of 3 - 19+ 3-dose series) 2015 HPV Vaccines (3 - 3-dose series) 04/13/2022 12/07/2021, 10/12/2021 COVID-19 Vaccine ( - season) 2025 05/12/2021, 09/28/2020, 08/19/2020 Influenza Adult (#1) 2025 03/13/2024, 04/17/2023, 05/05/2022, Additional history exists Annual Physical 10/02/2025 10/02/2024, 03/0 12/2022, 05/25/2021 Cervical Cancer Screening Pap Smear (Age 21 to 29) Every 3 Years 12/11/2026 12/12/2023, 04/08/2022, 04/08/2022, Additional history exists Cervical Cancer Screening 12/11/2026 DTaP, Tdap and Td Vaccines (3 - Td or Tdap) 08/04/2032 08/04/2022, 05/25/2018 Meningococcal Vaccine Completed 05/05/2015 Hepatitis C Completed 05/25/2021 PHQ-2 (Physician [place]) Completed 10/02/2024 Meningococcal B Vaccine Aged Out No l onger eligible based on patient's age to complete this topic Pneumococcal Vaccine: Pediatrics (0 to 5 Years) and At-Risk Patients (6 to 49 Years) Aged Out No longer eligible based on patient's age to complete this topic RSV Immunizations Under 20 Months Aged Out No longer eligible based on patient's age to complete this topic Procedures Procedure Name Priority Date/Time Associated Diagnosis Comments C-REACTIVE PROTEIN Routine 01/13/2025 12 :52 PM CDT ANTINUCLEAR ANTIBODY WI RFX Routine 01/13/2025 12:52 PM CDT SED RATE, ERYTHROCYTE (ESR) Routine 01/13/2025 12:52 PM CDT FACTOR VIII, VW FACTOR ANTIGEN Routine 01/13/2025 12:52 PM CDT OUTSIDE CYTOPATH CERV/VAG INTERPRET (PAP) (SCAN ORDER) 06/22/2021 HEPATITIS C ANTIBODY Routine 05/25/2021 9:08 AM HOME SERVICE TECHNICIAN Annual physical exam Encounter for medical examination to establish care General medical exam Encounter for hepatitis C screening test for low risk patient from Last 3 Months or Most Recently Relevant to Health Maintenance Results * (ABNORMAL) ANTINUCLEAR ANTIBODY WI RFX (01/13/2025 12:52 PM CDT) ANASTASIA COMMENT POSITIVE (A) NEGATIVE [facility] Comment: A positive ANASTASIA Multiplex indicates the presence of detectable antibodies to one or more of the component analytes consisting of double stranded DNA (dsDNA), chromatin, ribonucleoprotein (CIGAR WRAPPER TENDER AUTOMATIC), Pena/CIGAR WRAPPER TENDER AUTOMATIC (Sm/CIGAR WRAPPER TENDER AUTOMATIC), Pena (Sm), SS-A, SS-B, Ana-1, centromere B, Scl-70 and ribosomal P. Further laboratory testing may be considered if clinically indicated. For additional information, please refer to http://education.INNFOCUS/faq/FBF005 (This link is being provided for informational/ educational purposes only.) DNA (DS) ANTIBODY <1 IU/mL QU [employer] [facility] Comment: IU/mL Interpretation < or = 4 Negative 5-9 Indeterminate > or = 10 Positive 01/13/2025 12:5 2 PM CDT 01/13/2025 12:54 PM CDT Narrative Resulting Agency Comment Performing Organization Information: Site ID: [place] Name: [facility] Address: [address] [place] [address] Director: Lynda Cardona MD Yves Jade MD LABORATORY Final Result [facility] [employer] [address] [address], * SED RATE, ERYTHROCYTE (ESR) (01/13/2025 12:52 PM CDT) SED RATE 2 < OR = 20 mm[place] 01/13/2025 12:5 2 PM CDT 01/13/2025 12:54 PM CDT Narrative Resulting Agency Comment Performing Organization Information: Site ID: [place] [facility] Address: [address] [address] Director: Lynda Cardona Yves Jade MD LABORATORY Final Result Performing Organization Address [facility]/ZIP Co de Phone Number [facility] - ALYSSA ORDERS [facility] [address], * C-REACTIVE PROTEIN (01/13/2025 12:52 PM CDT) C-REACTIVE PROTEIN <5.0 <8.0 mg/L [place] 01/13/2025 12:5 2 PM CDT 01/13/2025 12:54 PM CDT Narrative Resulting Agency Comment Performing Organization Information: Site ID: Name: [facility] Address: [address] [place] [id number] Director: Lynda Cardona Yves Jade MD LABORATORY Final Result Performing Organization Address [facility] Co de Phone Number [facility] - ALYSSA [facility] [address], * FACTOR VIII, VW FACTOR ANTIGEN (01/13/2025 12:52 PM CDT) VON [place] FACTOR ANTIGEN 59 50 - 217 % [facility] 01/13/2025 12:5 2 PM CDT 01/13/2025 12:54 PM CDT Narrative Resulting Agency Comment Performing Organization Information: Site ID: [facility] Name: [employer] [facility] Address: [address] [place] [address] Dr [place], [place] Director: Kirby Delgado M.D.,PhD Yves Jade MD LABORATORY Final Result Performing Organization Address City/[facility] Co de Phone Number [facility] - ALYSSA ORDERS [facility] [address] , * OUTSIDE CYTOPATH CERV/VAG INTERPRET (PAP) (06/22/2021) 06/22/2021 Narrative 06/22/2021 Ordered by an unspecified provider. us Documents Scanned SCANNING Final Result * HEPATITIS C ANTIBODY (05/25/2021 9:08 AM HOME SERVICE TECHNICIAN) HEPATITIS C AB NON-REACTI VE NON-REACT EFRAÍN 05/25/2021 7:38 PM HOME SERVICE TECHNICIAN [facility] Comment: ANTIBODIES TO HCV NOT DETECTED. DOES NOT EXCLUDE THE POSSIBILITY OF EXPOSURE TO HCV. 05/25/2021 9:08 AM HOME SERVICE TECHNICIAN Yves Jade MD LABORATORY Final Result [facility] [address] [place] [address], [phone] from Last 3 Months or Most Recently Relevant to Health Maintenance Insurance [facility]
--- OUTSIDE RECORDS SUMMARY | 2025-04-12 21:16 | XMS_ITS | Encounter Summary ---
Author Organization [facility] Address Pending sale to [facility] [place] [address] Care Team Providers Care Lehr Tender Name Role Phone Yves Jade MD Primary Care Provider [phone] Encounter Details Date Type Department Care Team (Late st Contact Info) Description 04/08/2022 [employer] Message [facility] - [address] [place] [address] [employer], [facility] Provider result Social History Tobacco Use Types Packs/Day Years Used Date Smoking Tobacco: Never Smokeless Tobacco: Never Comments:counseled by Dr Temitope villanueva Alcohol Use Standard Drinks/Week Comments Yes 0 (1 standard drink = 0.6 oz pur e alcohol) socially PHQ-2 Answer Date Recorded PHQ-2 Score - If the patient scores above 3, please move on to questions 3-9 0 02/02/2022 Comments Yes Sex and Gender Information Value Date Recorded Sex Assigned at Female 09/11/2024 1:27 PM SEWER MAINTENANCE SUPERVISOR Legal Sex Female 2:02 PM SEWER MAINTENANCE SUPERVISOR Gender Identity Female 09/11/2024 1:27 PM SEWER MAINTENANCE SUPERVISOR Sexual Orientation Straight 09/11/2024 1: 30 PM SEWER MAINTENANCE SUPERVISOR documented as of this encounter Plan of Treatment Not on file documented as of this encounter Visit Diagnoses Not on filedocumented in this encounter Additional Health Concerns Infection Onset Date Last Indicated Resolved Time COVID-19 Rule Out 06/13/2022 06/13/2022 06/13/2022 1:31 PM SEWER MAINTENANCE SUPERVISOR COVID-19 Rule Out 06/13/2022 06/13/2022 06/14/2022 3:36 PM SEWER MAINTENANCE SUPERVISOR COVID-19 Confirmed 06/13/2022 06/13/2022 12:32 AM SEWER MAINTENANCE SUPERVISOR COVID-19 Rule Out 09/23/2022 09/23/2022 09/23/2022 1:13 PM CDT Respiratory Rule Out 10/02/2024 10/02/2024 025 10:22 AM CDT Assessment Noted Time PHQ-9 Depression Total Score: 0 08/17/19 22 9:06 AM SEWER MAINTENANCE SUPERVISOR documented as of this encounter Care Teams Lehr Tender Relationship Specialty Start Date End Date Yves Jade MD [address] [address] PCP - General INTERNAL MEDICINE 05/25/21 01/28/25 documented as of this encounter
--- OUTSIDE RECORDS SUMMARY | 2025-04-12 21:16 | XMS_ITS | Clinical Summary ---
Author Organization [facility] Address [address] [place] [address] Care Team Providers Care [employer] Administrator Name Role Phone Chari Slater MD Unavailable Lurdes Stanford MD Unavailable [phone] Ning Alamo NP Unavailable Bella Sh[facility] Pr ovider Srikanth Bray MD Unavailable [phone] Allergies Active Allergy Reactions Criticality Noted Date Comments Amoxicillin Hives Medium 01/06/2019 Penicillins Hives Medium 01/06/2019 Medications ergocalciferol (VITAMIN D) 50,000 unit capsuleIndications :Vitamin D deficiency Take 1 capsule (50,000 Units total) by mouth once a week 12 capsule 4 11/17/19 24 Active omega-3 fatty acids-fish oil 300-1,000 mg capsule Take 2 capsules (2 g total) by mouth daily Active acetaminophen (TYLENOL) 500 mg tablet Take 1 tablet (500 mg total) by mouth every 6 (six) hours as needed for pain 30 tablet 03/27/20 24 Active hydroxychloroquine (PLAQUENIL) 200 mg tablet Take 1 tablet (200 mg total) by mouth daily 90 tablet 03/14/20 25 026 Active magnesium gluconate 200 mg tabletIndications: hypomagnesemia 1 tablet (200 mg total) 025 Discontin ued(Dupli ian order) B.animalis,bifid,i nfantis,long (PROBIOTIC 4X ORAL) Take by mouth 025 Discontin ued(Dupli ian order) ibuprofen (ADVIL,MOTRIN) 600 mg tablet Take 1 tablet (600 mg total) by mouth every 6 (six) hours as needed for pain 30 tablet 03/27/20 24 025 Discontin ued(Dupli ian order) DULoxetine DR (CYMBALTA) 30 mg capsule Take 1 capsule (30 mg total) by mouth every morning 03/28/20 24 025 Discontin ued(Dupli ian order) cyclobenzaprine (FLEXERIL) 10 mg tabletIndications: Acute right-sided low back pain without sciatica Take 1 tablet (10 mg total) by mouth 3 (three) times a day as needed for muscle spasms 15 tablet 04/02/20 24 Discontin ued(Dupli ian order) ondansetron ODT (ZOFRAN-ODT) 4 mg disintegrating tabletIndications: Vomiting, unspecified vomiting type, unspecified whether nausea present Take 1 tablet (4 mg total) by mouth every 6 (six) hours as needed for nausea or vomiting 12 tablet 04/22/20 24 025 Discontin ued(Dupli ian order) dextroamphetamine- amphetamine (ADDERALL) 5 mg tablet 1 tablet (5 mg total) 10/12/19 25 025 Discontin ued(Dupli ian order) methylPREDNISolone (MEDROL DOSEPACK) 4 mg Dosepack Take 1 tablet (4 mg total) by mouth 10/04/19 025 Discontin ued(Dupli ian order) azelaic acid 15 % gel Apply topically 2 (two) times a day 09/25/19 25 025 Discontin ued(Dupli ian order) DULoxetine DR (CYMBALTA) 60 mg capsule Take 1 capsule (60 mg total) by mouth every morning 09/28/19 25 025 Discontin ued(Dupli ian order) ascorbic acid (ascorbic acid with angel hips) 500 mg tablet,chewable Discontin ued(Dupli ian order) cyanocobalamin (Vitamin B-12) 100 mcg tabletIndications: Prevention of Vitamin B12 Deficiency Take 1 tablet (100 mcg total) by mouth daily 025 Discontin ued(Dupli ian order) flibanserin 100 mg tablet Take 100 mg by mouth daily 30 tablet 11 12/19/19 25 025 Discontin ued(Dupli ian order) Active Problems Problem Noted Date Diagnosed Date Chronic fatigue 04/11/2025 Assessment & Plan (04/11/2025 12:56 PM CDT): She still has daily chronic fatigue. Has to go home at lunch (lives 10 min from work) to take a 30 to 40 minute nap. She gets 8 h of sleep at night and at night has to take melatonin to fall asleep. 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 [...] time. Labs checked by pcp. Cbc wnl. Arthralgia 02/24/2025 Overview (02/28/2025): US right hand/wrist (02/28/25): 1. No significant joint effusions, power doppler, synovial thickening, tendinopathy, or erosive changes appreciated on US examination. Assessment & Plan (04/11/2025 12:57 PM CDT): Mod cdai. Not sure her joint pain has improved yet but only on hcq for 1 month. Will give it another 2 months and recheck rt hand US. Has hx of high anastasia and + centromere antibody with minimal joint swelling and lot of joint pain and chronic fatigue. Pt does not presently have symptoms of scleroderma except some kerr. We referred her on 03/14/2025 for pft's and Echo but has [...] 3. Normal bilateral hand and foot evaluation. Assessment & Plan (03/14/2025 10:44 AM CDT): High anastasia and + centromere antibody with minimal joint swelling but a lot of joint pain and chronic fatigue. Pt does not presently have symptoms of scleroderma except some kerr. Will check pft's and Echo. Cxr wnl 02/25/2025. Recommend starting hydroxychloroquine 200mg po every day for her symptoms and see if she improves. Discussed potential hcq se---retina toxicity, diarrhea, skin darkening, tinnitus, lft elevation, nausea. Advised to get eye exam including oct every year and at start of hcq with opth. F/u in 1month to recheck labs. At this time lupus should be considered although minimal joint swelling. If her pft's are abnormal scleroderma is also a possible diagnosis. Denies dysphagia today, has constipation, no skin changes or sclerodactyly on exam. 2 year hx of joint pain and chronic fatigue. Has vaginal dryness, + ANASTASIA. On exam questionable joint swelling. She also does not have any tender points for fibromyalgia and sleep apnea has been ruled out. 45 min spent with pt today. Her mother was also present during this visit. Seen with Dr. Bray. US right hand/wrist (02/28/25): 1. No significant [...] 3. Normal bilateral hand and foot evaluation. Assessment & Plan (02/24/2025 12:29 PM CDT): 2 year hx of joint pain and chronic fatigue. Also has vaginal dryness, + ANASTASIA. On exam questionable joint swelling. She also does not have any tender points for fibromyalgia and sleep apnea has been ruled out. Check serologies, xrays and rt hand US and re-evaluate in [address] Bray. 40 min spent with pt today. ANASTASIA positive 02/24/2025 Assessment & Plan (02/24/2025 12:33 PM CDT): Not many symptoms of sle/ctd, will check serologies and re-evaluate in 2 weeks. Encounter for long-term (current) use of medicat ions 02/24/2025 Assessment & Plan (04/11/2025 8:11 AM CDT): Avise panel ---+ ANASTASIA 1:5120/>150. + anti centromere protein B 56 (neg <7). Cxr neg 02/25/2025 Referred for echo and PFT's 03/14/2025 Assessment & Plan (03/14/2025 10:47 AM CDT): Avise panel ---+ ANASTASIA 1:5120/>150. + anti centromere protein B 56 (neg <7). Cxr neg 02/25/2025 Referred for echo and PFT's 03/14/2025 Assessment & Plan (02/24/2025 8:03 AM CDT): Hep B and C neg 11/2023 Low back pain at multiple sites 02/24/2025 Assessment & Plan (02/24/2025 12:33 PM CDT): Check si joint and lumbar xrays. Neck pain 02/24/2025 Assessment & Plan (02/24/2025 12:33 PM CDT): Check c spine xray. Obstructive sleep apnea 06/26/2024 Body mass index (BMI) of 23.0 to 23.9 in adult 0 03/20/2024 Assessment & Plan (03/20/2024 9:34 AM CDT): Patient requesting phentermine Discussed that she is not a candidate due to BMI and medication prescribed by psychiatry Recommend healthy dietary choices and moderate intensity exercise 30 minutes 5 days/week Family history of breast cancer 02/07/2024 Chronic idiopathic constipation 11/15/2023 Assessment & Plan (11/15/2023 5:18 PM CDT): Recommend Miralax daily States she goes 3-4 days in between bowel movements Multiple thyroid nodules 11/15/2023 Assessment & Plan (01/19/2024 9:06 AM CDT): TSH WNL Thyroid US showed small nodule in left thyroid that appears cystic No follow up needed Assessment & Plan (11/15/2023 5:25 PM CDT): Was told in high school that she had thyroid nodules No imaging since then Labs and thyroid US ordered Acne vulgaris 11/15/2023 Assessment & Plan (11/15/2023 5:27 PM CDT): Was previously on Tretinoin for acne Will obtain hcg prior to prescribing Deviated nasal septum 11/18/2021 Hypertrophy of both inferior nasal turbinates Snoring 11/18/2021 Vitamin D deficiency 05/26/2021 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 05/25/2021 Assessment & Plan (03/20/2024 9:34 AM CDT): Chronic, stable Following with psychiatry She is not taking her medication prescribed by psychiatry Has upcoming appt next week; will discuss phentermine Assessment & Plan (01/19/2024 9:07 AM CDT): Chronic, not well controlled Has upcoming appt with psychiatry on 02/11 Has not started the Lexapro Assessment & Plan (11/15/2023 5:24 PM CDT): Chronic, not well controlled Was told she has Bipolar tendencies Suffered from PPD after her son was born 5 years ago Has been on multiple medications-Wellbutrin, BuSpar, Abilify, Prozac, Lamictal, Klonopin Referral to psychiatry placed Lexapro 10 mg daily Follow up 2 months SUSAN (generalized anxiety disorder) 05/25/2021 Assessment & Plan (01/19/2024 9:07 AM CDT): Chronic, not well controlled Has upcoming appt with psychiatry on 02/11 Has not started the Lexapro Assessment & Plan (11/15/2023 5:24 PM CDT): Chronic, not well controlled Was told she has Bipolar tendencies Has been on multiple medications-Wellbutrin, BuSpar, Abilify, Prozac, Lamictal, Klonopin Referral to psychiatry placed Lexapro 10 mg daily Follow up 2 months Resolved Problems Problem Noted Date Diagnosed Date Resolved Date Malpositioned IUD, subsequent encounter 03/26/2024 12/16/2024 Paragard placed 09/30/22 11/16/2022 0603/2025 care following vaginal delivery 09/29/2022 11/16/2022 Overview (10/02/2022): # ID: Afebrile. No signs/symptoms of infection. #COVID-19: Test not indicated # Heme: EBL 200 mL. No symptoms acute blood loss anemia. # SANDY: Hgb on admission 9.7, taking PO iron supplementation daily # CV/Pulm: Vital signs stable, within normal limits. # GI/: Tolerating PO. Voiding spontaneously. # Pain: Controlled with above regimen. # Post DVT prophylaxis: The patient has the following MAJOR risk factors none and the following MINOR risk factors none. SCDs ordered for VTE prophylaxis. # MOC: s/p copper IUD placement # MOF: . Urine drug screen not indicated. Patient informed of results: N/A. # COVID Vaccination Status: Not assessed # Disposition: Follow up task not sent. Continue routine care. Anticipate discharge today. normal anatomy ultrasound 06/06/2022 Overview (06/06/2022): Images from the original note were not included. pt BR 04/08/2022 11/16/2022 Overview (09/19/2022): Initial Labs: Lab Results Component Value Date ABORH A Positive 04/08/2022 IDCOOMB Negative 04/08/2022 [id number] Nonreactive 07/07/2022 LABRPR Nonreactive 07/07/2022 RUBELIGG Reactive 04/08/2022 Lab Results Component Value Date HEPBSAG Nonreactive 04/08/2022 Lab Results Component Value Date WBC 10.4 (H) 07/07/2022 HGB 11.0 (L) 07/07/2022 HCT 33.8 (L) 07/07/2022 MCV 95.8 07/07/2022 LABPLAT 211 07/07/2022 Carrier Screening CF: SMA: Hgb Electrophoresis: Genetic screening: All low risk GTT 50g gest screen <=140 mg/dL 112 Lab Results Component Value Date WBC 10.4 (H) 07/07/2022 HGB 11.0 (L) 07/07/2022 HCT 33.8 (L) 07/07/2022 MCV 95.8 07/07/2022 LABPLAT 211 07/07/2022 GBS-Negative Nasal obstruction 11/18/2021 11/15/2023 Encounters Date Type Department Care Team Description 04/11/2025 9:00 AM CDT Office Visit [facility] [address] [place] [phone] Norma Padilla PA Arthralgia, unspecified joint (Primary Dx); Encounter for long-term (current) use of medications; Chronic fatigue 04/11/[address] [phone] Norma Padilla PA 04/11/[address] [phone] Norma Padilla PA 03/14/2025 10:00 AM CDT Office Visit [address] [phone] Norma Padilla PA Arthralgia, unspecified joint (Primary Dx); Encounter for long-term (current) use of medications; KERR (dyspnea on exertion) 02/28/2025 12:49 PM CDT - 02/28/2025 11:59 PM CDT Hospital Encounter [facility] [address] [place] [phone] Arthralgia, unspecified joint; ANASTASIA positive; Encounter for long-term (current) use of medications Discharge Disposition: Discharge to home or self care 02/26/2025 Results Follow-Up [facility] [address] [place] [phone] Norma Padilla PA Creatine kinase (CK), total, Erythrocyte sedimentation rate, CBC with auto differential, Additional followed-up results: 8 02/25/2025 12:00 PM CDT - 02/25/2025 11:59 PM CDT Hospital Encounter [facility] [address] [place] [phone] Arthralgia, unspecified joint; ANASTASIA positive; Encounter for long-term (current) use of medications; Neck pain; Low back pain at multiple sites Discharge Disposition: Discharge to home or self care 02/24/2025 10:00 AM CDT Office Visit [facility] [address] [place] [phone] Norma Padilla PA Arthralgia, unspecified joint (Primary Dx); ANASTASIA positive; Encounter for long-term (current) use of medications; Low back pain at multiple sites; Neck pain from Last 3 Months Immunizations Immunization Administration Dates Next Due HPV9 12/07/2021,10/12/2021 Influenza, Quadrivalent, Spl it, Preservative Free, Intramuscular 04/17/2023,05/05/2022,04/15/2021,04/02 Influenza, Unspecified 03/13/2024 Meningococcal Conjugate (Menveo) 05/05/2015 Tdap 08/04/2022,05/25/2018 Surgical History Surgery Date Site/Laterality Comments TONSILLECTOMY NOSE SURGERY 12/08/2022 - 01/06/2023 Medical History Medical History Date Comments Allergic rhinitis Anxiety Anemia Depression Thyroid disease Paragard placed 09/30/22 11/16/2022 Malpositioned IUD, subsequent encounter 03/26/20 24 Family History Medical History Relation Name Comments Depression Father Aravind Bragg Hypertension Father Aravind Bragg Mental illness Father Aravind Bragg Non-Hodgkin's Lymphoma Maternal Grandfather Stomach cancer Maternal Grandfather Breast cancer Maternal Grandmother Aminta George No Known Problems Mother Breast cancer Other Great Grandmother age unkno wn Early Paternal Grandfather Gerardo Bragg Heart attack Paternal Grandfather Gerardo Bragg Heart attack Paternal Grandmother Relation Name Status Comments Father Aravind Bragg Alive Maternal Grandfather Maternal Grandmother Aminta George Mother Alive Other Great Grandmother Paternal Grandfather Gerardo Bragg Paternal Grandmother Social History Tobacco Use Types Packs/Day Years Used Date Smoking Tobacco: Never Smokeless Tobacco: Never Tobacco Cessation:Counseling Given: Not Answered [facility] Utilities Answer Date Recorded In the past 12 months has e Ant[employer], gas, oil, or water company threatened to shut off services in your [...] often do you attend chur ch or mu-ism services? Never 01/19/2024 Do you belong to any clubs o r organizations such as sabianism groups, unions, fraternal or athletic groups, or [...] staff should administer the PHQ-9) 0 03/20/2024 [facility] - Occupational Stress Questionnaire Answer Date Recorded [...] place to sleep or slept in a group home (including now)? No 10/02/2022 PHQ-9 Answer Date [...] any time in the past 12 m [facility], were you homeless or living in a group home (including now)? No 01/19/2024 Personal Safety Answer Date Recorded Have you ever been in or are you currently in a harmful physical or emotional relationship or is someone making you feel afraid or unsafe? Denies 06/13/2024 Comments No Sex and Gender Information Value Date Recorded Sex Assigned at Not on file Legal Sex Female 10:26 PM [employer] Gender Identity Not on file Sexual Orientation Not on file Obstetrics History Para Term AB IAB SAB Ectopic Multiple Livin g Live Births 2 2 2 0 2 2 Date Outcome GA Total Labor Labor/2nd/3rd Weight Sex Type Anes PTL Nagie A1 A5 Name Clin 2018 Term 39w 0d 4.026 kg (8 lb 14 oz) M Vag-S pont None Livin g Complications:None Delivery Location:[facility] 2022 Term 39w 0d 11h 01m 10h 31m/0h 15m/0h 15m 3.8 kg (8 lb 6 oz) F Vag-S pont Epidur al N Livin g 9 9 PEACH ,GIRL Nydia Schneider MD Complications:None Delivery Location:[facility] ([facility]LD) Comments G1--delivered at [facility]. P ushed 90min. Had an episiotomy---was prolonged healing. Rgs 08/18/22 Last Filed Vital Signs Vital Sign Reading Time Taken Comments Blood Pressure 112/66 04/11/2025 9:03 AM CDT Pulse 84 04/11/2025 9:03 AM CDT Temperature 36.7 C (98 F) 01/02/2025 3:58 PM CDT Respiratory Rate 18 01/02/2025 3:58 PM CDT Oxygen Saturation 96% 04/11/2025 9:03 AM CDT Inhaled Oxygen Concentration - - Weight 65.3 kg (144 lb) 04/11/2025 9:03 AM CDT Height 175.3 cm (5' 9) 04/11/2025 9:03 AM CDT Body Mass Index 21.27 04/11/2025 9:03 AM CDT Plan of Treatment Health Maintenance Due Date Last Done Comments Varicella Vaccines (1 of 2 - 13+ 2-dose series) 2009 Hepatitis B Screening 2014 Pneumococcal vaccine <65 (1 of 2 - PCV) 2015 Zoster Vaccine (1 of 2) 2015 HPV Vaccines (3 - 3-dose series) 04/13/2022 12/08/19, 10/12/2021 Cervical Cancer Screening 12/11/2024 12/12/2023 Covid-19 Vaccine (4 - 2024-2 6 season) 2025 05/12/2021, 09/28/2020, 08/19/2020 Influenza Vaccine (#1) 2025 , 04/17/2023, 05/05/2022, Additional history exists Depression Screening 03/20/2025 03/20/2024, 01/19/2024, 01/19/2024, Additional history exists Regular Well Visit/Exam 18-64 12/16/2025 12/16/2024, 12/12/2023 DTaP/Tdap/Td Vaccine (3 - Td or Tdap) 08/04/2032 08/04/2022, 05/25/2018 Hepatitis C Screening Completed 11/16/2023 Procedures Procedure Name Priority Date/Time Associated Diagnosis [...] Encounter for long-term (current) use of medications US HAND COMPLETE Schedule Routine, Read Routine (OP Routine) 02/28/2025 1:17 PM CDT Arthralgia, unspecified joint ANASTASIA positive Encounter for long-term (current) use of medications XR SPINE LUMBAR 2 OR 3 VIEWS Schedule Routine, Read Routine (OP Routine) 02/25/2025 12:33 PM CDT Low back pain at multiple sites XR SPINE CERVICAL 2 OR 3 VIEWS Schedule Routine, Read Routine (OP Routine) 02/25/2025 12:33 PM CDT Neck pain XR FOOT LEFT 3 OR MORE VIEWS Schedule Routine, Read Routine (OP Routine) 02/25/2025 12:33 PM CDT Arthralgia, unspecified joint ANASTASIA positive Encounter for long-term (current) use of medications XR FOOT RIGHT 3 OR MORE VIEWS Schedule Routine, Read Routine (OP Routine) 02/25/2025 12:33 PM CDT Arthralgia, unspecified joint ANASTASIA positive Encounter for long-term (current) use of medications XR HAND RIGHT 3 OR MORE VIEWS Schedule Routine, Read Routine (OP Routine) 02/25/2025 12:33 PM CDT Arthralgia, unspecified joint ANASTASIA positive Encounter for long-term (current) use of medications XR HAND LEFT 3 OR MORE VIEWS Schedule Routine, Read Routine (OP Routine) 02/25/2025 12:33 PM CDT Arthralgia, unspecified joint ANASTASIA positive Encounter for long-term (current) use of medications XR CHEST PA LATERAL 2 VIEWS Schedule Routine, Read Routine (OP Routine) 02/25/2025 12:33 PM CDT Arthralgia, unspecified joint ANASTASIA positive Encounter for long-term (current) use of medications VITAMIN D 25 HYDROXY Routine 02/24/2025 11:26 AM CDT CRP (ACUTE PHASE) Routine 02/24/2025 11:26 AM CDT Arthralgia, unspecified joint ANASTASIA positive Encounter for long-term (current) use of medications COMPREHENSIVE METABOLIC PANEL Routine 02/24/2025 11:26 AM CDT Arthralgia, unspecified joint ANASTASIA positive Encounter for long-term (current) use of medications CBC WITH AUTO DIFFERENTIAL Routine 02/24/2025 11:26 AM CDT Arthralgia, unspecified joint ANASTASIA positive Encounter for long-term (current) use of medications ERYTHROCYTE SEDIMENTATION RATE Routine 02/24/2025 11:26 AM CDT Arthralgia, unspecified joint ANASTASIA positive Encounter for long-term (current) use of medications CREATINE KINASE (CK), TOTAL Routine 02/24/2025 11:26 AM CDT Arthralgia, unspecified joint ANASTASIA positive Encounter for long-term (current) use of medications URINE CULTURE Routine 02/24/2025 11:26 AM CDT REFLEXIVE URINE CULTURE Routine 02/24/2025 11:26 AM CDT URINALYSIS AND REFLEX TO MICROSCOPIC AND CULTURE Routine 02/24/2025 11:26 AM CDT Arthralgia, unspecified joint ANASTASIA positive Encounter for long-term (current) use of medications MISCELLANEOUS LAB TEST Routine 02/24/2025 10:06 AM CDT Arthralgia, unspecified joint ANASTASIA positive Encounter for long-term (current) use of medications PAP WITH REFLEX TO HIGH RISK HPV Routine 12/12/2023 10:17 AM CDT Encounter for gynecological examination (general) (routine) without abnormal findings HEPATITIS C ANTIBODY Routine 11/16/2023 8:28 AM CDT Need for hepatitis C screening test from Last 3 Months or Most Recently Relevant to Health Maintenance Results * Anti-double stranded DNA abs (04/11/2025 9:53 AM CDT) Pathologist [facility] DNA (DS) ab <1 IU/mL [facility] Comment: IU/mL Interpretation < or = 4 Negative 5-9 Indeterminate > or = 10 Positive Blood 04/11/2025 9:53 AM CDT 04/11/2025 9:54 AM CDT us Norma CANTOR LAB BLOOD ORDERAB LES Final Result [facility] [address] [place] [address] * C4 complement (04/11/2025 9:53 AM CDT) Pathologist [facility] Complement component C4C 21 15 - 57 mg/dL [facility] Blood 04/11/2025 9:53 AM CDT 04/11/2025 9:54 AM CDT Norma CANTOR LAB BLOOD ORDERAB LES Final Result Performing Organization Address [facility] Co de Phone Number [facility] [address] [place] [address] * Urinalysis reflex to microscopic (04/11/2025 9:53 AM CDT) [facility] Color, ur YELLOW YELLOW [facility] [...] ORDERAB LES Final Result Performing Organization Address [facility] Co de Phone Number [facility] [address] [place] [address] * (ABNORMAL) CBC with auto differential (04/11/2025 9:53 AM CDT) [facility] WBC 5.7 3.8 - 10.8 Thousand/u L [...] BLOOD ORDERAB LES Final Result [facility] [address] [address] [place] [phone] * (ABNORMAL) Protein / creatinine ratio, urine, random (04/11/2025 9:53 AM CDT) Creatinine, ur 63 20 - 275 mg/dL [...] ORDERAB LES Final Result Performing Organization Address [facility] Co de Phone Number [facility] [address] [place] [address] * Erythrocyte sedimentation rate (04/11/2025 9:53 AM CDT) Pathologist [facility] Erythrocyte sedimentation rate 6 < OR = 20 mm/h [facility] Blood 04/11/2025 9:53 AM CDT 04/11/2025 9:54 AM CDT Norma CANTOR LAB BLOOD ORDERAB LES Final Result Performing Organization Address [facility] Co de Phone Number [facility] [address] [place] [address] * C3 complement (04/11/2025 9:53 AM CDT) Complement component C3C 146 83 - 193 mg/dL [facility] Blood 04/11/2025 9:53 AM CDT 04/11/2025 9:54 AM CDT Norma CANTOR LAB BLOOD ORDERAB LES Final Result Performing Organization Address [facility] Co de Phone Number [employer] [facility] [address] [place] [address] * CRP (acute phase) (04/11/2025 9:53 AM CDT) C-RP <3.0 <8.0 mg/L [facility] Blood 04/11/2025 9:53 AM CDT 04/11/2025 9:54 AM CDT us Norma CANTOR LAB BLOOD ORDERAB LES Final Result [facility] [address] [address], [place] [phone] * Comprehensive metabolic panel (04/11/2025 9:53 AM CDT) Pathologist [facility] Glucose 84 65 - 99 mg/dL [facility] [...] CANTOR LAB BLOOD ORDERAB LES Final Result [facility] [address] [place] [phone] * US Hand Complete (02/28/2025 1:17 PM CDT) Anatomical Region Laterality Modality Hand N/A Ultrasound us Norma CANTOR IMG US PROCEDURES Final Result * XR Foot Right 3 or More Views (02/25/2025 12:33 PM CDT) Anatomical Region Laterality Modality Lower Extremities, Foot Right Computed Radiography 02/26/2025 3:28 PM CDT Narrative 02/26/2025 3:31 PM CDT EXAM DESCRIPTION: 1. XR HAND LEFT 3 OR MORE VIEWS 2. XR HAND RIGHT 3 OR MORE VIEWS; 3. XR FOOT RIGHT 3 OR MORE VIEWS; 4. XR FOOT LEFT 3 OR MORE VIEWS; 5. XR SPINE CERVICAL 2 OR 3 VIEWS; 6. XR SPINE LUMBAR 2 OR 3 VIEWS REASON FOR STUDY: Bilateral hand and foot pain. Arthralgia. neck pain low back pain ANASTASIA positive. Positive auto immune marker on an off back pain x 1 year FINDINGS: Three views each hand, three views each foot, three views lumbar spine and two views cervical spine submitted without comparison. Cervical spine: No acute fracture. No prevertebral [...] 3. Normal bilateral hand and foot evaluation. THIS IS AN ELECTRONICALLY VERIFIED FINAL REPORT 02/26/2025 3:31 PM - Electronically signed by Elvis Guzman M.D. MF: BRONWYN Report ID: [id number] Reading Location: [id number] Procedure Note Elvis Guzman MD - 02/26/2025 EXAM DESCRIPTION: 1. XR HAND LEFT 3 OR MORE VIEWS 2. XR HAND RIGHT 3 OR MORE VIEWS; 3. XR FOOT RIGHT 3 OR MORE VIEWS; 4. XR FOOT LEFT 3 OR MORE VIEWS; 5. XR SPINE CERVICAL 2 OR 3 VIEWS; 6. XR SPINE LUMBAR 2 OR 3 VIEWS REASON FOR STUDY: Bilateral hand and foot pain. Arthralgia. neck pain low back pain ANASTASIA positive. Positive auto immune marker on an off back pain x 1 year FINDINGS: Three views each hand, three views each foot, three views lumbar spine andtwo views cervical spine submitted without comparison. Cervical spine: No acute fracture. No prevertebral soft tissue swelling. Alignment is normal. The intervertebral disc space heights are normal. Lumbar spine: No acute fracture. Alignment is normal. The intervertebral disc space heights are normal. Hands: No erosions. No acute fracture. Alignment is normal. The joint spacesare normal. No dorsal wrist soft tissue swelling. Feet: No erosions. No acute fracture. The joint spaces are normal. IMPRESSION: 1. No radiographic evidence of inflammatory arthritis. 2. Normal cervical and lumbar spine evaluation. 3. Normal bilateral hand and foot evaluation. THIS IS AN ELECTRONICALLY VERIFIED FINAL REPORT 02/26/2025 3:31 PM - Electronically signed by Elvis Guzman M.D. MF: BRONWYN Report ID: [id number] Reading Location: [id number] Norma CANTOR IMG XR PROCEDURES Final Result * XR Foot Left 3 or More Views (02/25/2025 12:33 PM CDT) Anatomical Region Laterality Modality Lower Extremities, Foot Left Computed Radiography 02/26/2025 3:28 PM CDT Narrative 02/26/2025 3:31 PM CDT EXAM DESCRIPTION: 1. XR HAND LEFT 3 OR MORE VIEWS 2. XR HAND RIGHT 3 OR MORE VIEWS; 3. XR FOOT RIGHT 3 OR MORE VIEWS; 4. XR FOOT LEFT 3 OR MORE VIEWS; 5. XR SPINE CERVICAL 2 OR 3 VIEWS; 6. XR SPINE LUMBAR 2 OR 3 VIEWS REASON FOR STUDY: Bilateral hand and foot pain. Arthralgia. neck pain low back pain ANASTASIA positive. Positive auto immune marker on an off back pain x 1 year FINDINGS: Three views each hand, three views each foot, three views lumbar spine and two views cervical spine submitted without comparison. Cervical spine: No acute fracture. No prevertebral [...] 3. Normal bilateral hand and foot evaluation. THIS IS AN ELECTRONICALLY VERIFIED FINAL REPORT 02/26/2025 3:31 PM - Electronically signed by Elvis Guzman M.D. MF: BRONWYN Report ID: [id number] Reading Location: [id number] Procedure Note Elvis Guzman MD - 02/26/2025 EXAM DESCRIPTION: 1. XR HAND LEFT 3 OR MORE VIEWS 2. XR HAND RIGHT 3 OR MORE VIEWS; 3. XR FOOT RIGHT 3 OR MORE VIEWS; 4. XR FOOT LEFT 3 OR MORE VIEWS; 5. XR SPINE CERVICAL 2 OR 3 VIEWS; 6. XR SPINE LUMBAR 2 OR 3 VIEWS REASON FOR STUDY: Bilateral hand and foot pain. Arthralgia. neck pain low back pain ANASTASIA positive. Positive auto immune marker on an off back pain x 1 year FINDINGS: Three views each hand, three views each foot, three views lumbar spine andtwo views cervical spine submitted without comparison. Cervical spine: No acute fracture. No prevertebral soft tissue swelling. Alignment is normal. The intervertebral disc space heights are normal. Lumbar spine: No acute fracture. Alignment is normal. The intervertebral disc space heights are normal. Hands: No erosions. No acute fracture. Alignment is normal. The joint spacesare normal. No dorsal wrist soft tissue swelling. Feet: No erosions. No acute fracture. The joint spaces are normal. IMPRESSION: 1. No radiographic evidence of inflammatory arthritis. 2. Normal cervical and lumbar spine evaluation. 3. Normal bilateral hand and foot evaluation. THIS IS AN ELECTRONICALLY VERIFIED FINAL REPORT 02/26/2025 3:31 PM - Electronically signed by Elvis Guzman M.D. MF: BRONWYN Report ID: [id number] Reading Location: [place] [address] [place] Norma CANTOR IMG XR PROCEDURES Final Result * XR Hand Right 3 or More Views (02/25/2025 12:33 PM CDT) Anatomical Region Laterality Modality Upper Extremities, Hand Right Computed Radiography 02/26/2025 3:28 PM CDT Narrative 02/26/2025 3:31 PM CDT EXAM DESCRIPTION: 1. XR HAND LEFT 3 OR MORE VIEWS 2. XR HAND RIGHT 3 OR MORE VIEWS; 3. XR FOOT RIGHT 3 OR MORE VIEWS; 4. XR FOOT LEFT 3 OR MORE VIEWS; 5. XR SPINE CERVICAL 2 OR 3 VIEWS; 6. XR SPINE LUMBAR 2 OR 3 VIEWS REASON FOR STUDY: Bilateral hand and foot pain. Arthralgia. neck pain low back pain ANASTASIA positive. Positive auto immune marker on an off back pain x 1 year FINDINGS: Three views each hand, three views each foot, three views lumbar spine and two views cervical spine submitted without comparison. Cervical spine: No acute fracture. No prevertebral [...] 3. Normal bilateral hand and foot evaluation. THIS IS AN ELECTRONICALLY VERIFIED FINAL REPORT 02/26/2025 3:31 PM - Electronically signed by Elvis Guzman M.D. MF: BRONWYN Report ID: [id number] Reading Location: [place] [address] Procedure Note Elvis Guzman MD - 02/26/2025 EXAM DESCRIPTION: 1. XR HAND LEFT 3 OR MORE VIEWS 2. XR HAND RIGHT 3 OR MORE VIEWS; 3. XR FOOT RIGHT 3 OR MORE VIEWS; 4. XR FOOT LEFT 3 OR MORE VIEWS; 5. XR SPINE CERVICAL 2 OR 3 VIEWS; 6. XR SPINE LUMBAR 2 OR 3 VIEWS REASON FOR STUDY: Bilateral hand and foot pain. Arthralgia. neck pain low back pain ANASTASIA positive. Positive auto immune marker on an off back pain x 1 year FINDINGS: Three views each hand, three views each foot, three views lumbar spine andtwo views cervical spine submitted without comparison. Cervical spine: No acute fracture. No prevertebral soft tissue swelling. Alignment is normal. The intervertebral disc space heights are normal. Lumbar spine: No acute fracture. Alignment is normal. The intervertebral disc space heights are normal. Hands: No erosions. No acute fracture. Alignment is normal. The joint spacesare normal. No dorsal wrist soft tissue swelling. Feet: No erosions. No acute fracture. The joint spaces are normal. IMPRESSION: 1. No radiographic evidence of inflammatory arthritis. 2. Normal cervical and lumbar spine evaluation. 3. Normal bilateral hand and foot evaluation. THIS IS AN ELECTRONICALLY VERIFIED FINAL REPORT 02/26/2025 3:31 PM - Electronically signed by Elvis Guzman M.D. MF: BRONWYN Report ID: [id number] Reading Location: [id number] Norma Martínez Katievictoria DEVAUGHN IMG XR PROCEDURES Final Result * XR Hand Left 3 or More Views (02/25/2025 12:33 PM CDT) Anatomical Region Laterality Modality Upper Extremities, Hand Left Computed Radiography 02/26/2025 3:28 PM CDT Narrative 02/26/2025 3:31 PM CDT EXAM DESCRIPTION: 1. XR HAND LEFT 3 OR MORE VIEWS 2. XR HAND RIGHT 3 OR MORE VIEWS; 3. XR FOOT RIGHT 3 OR MORE VIEWS; 4. XR FOOT LEFT 3 OR MORE VIEWS; 5. XR SPINE CERVICAL 2 OR 3 VIEWS; 6. XR SPINE LUMBAR 2 OR 3 VIEWS REASON FOR STUDY: Bilateral hand and foot pain. Arthralgia. neck pain low back pain ANASTASIA positive. Positive auto immune marker on an off back pain x 1 year FINDINGS: Three views each hand, three views each foot, three views lumbar spine and two views cervical spine submitted without comparison. Cervical spine: No acute fracture. No prevertebral [...] 3. Normal bilateral hand and foot evaluation. THIS IS AN ELECTRONICALLY VERIFIED FINAL REPORT 02/26/2025 3:31 PM - Electronically signed by Elvis Guzman M.D. MF: BRONWYN Report ID: [id number] Reading Location: [id number] Procedure Note Elvis Guzman MD - 02/26/2025 EXAM DESCRIPTION: 1. XR HAND LEFT 3 OR MORE VIEWS 2. XR HAND RIGHT 3 OR MORE VIEWS; 3. XR FOOT RIGHT 3 OR MORE VIEWS; 4. XR FOOT LEFT 3 OR MORE VIEWS; 5. XR SPINE CERVICAL 2 OR 3 VIEWS; 6. XR SPINE LUMBAR 2 OR 3 VIEWS REASON FOR STUDY: Bilateral hand and foot pain. Arthralgia. neck pain low back pain ANASTASIA positive. Positive auto immune marker on an off back pain x 1 year FINDINGS: Three views each hand, three views each foot, three views lumbar spine andtwo views cervical spine submitted without comparison. Cervical spine: No acute fracture. No prevertebral soft tissue swelling. Alignment is normal. The intervertebral disc space heights are normal. Lumbar spine: No acute fracture. Alignment is normal. The intervertebral disc space heights are normal. Hands: No erosions. No acute fracture. Alignment is normal. The joint spacesare normal. No dorsal wrist soft tissue swelling. Feet: No erosions. No acute fracture. The joint spaces are normal. IMPRESSION: 1. No radiographic evidence of inflammatory arthritis. 2. Normal cervical and lumbar spine evaluation. 3. Normal bilateral hand and foot evaluation. THIS IS AN ELECTRONICALLY VERIFIED FINAL REPORT 02/26/2025 3:31 PM - Electronically signed by Elvis Guzman M.D. MF: BRONWYN Report ID: [id number] Reading Location: [place] [address] Norma CANTOR IMG XR PROCEDURES Final Result * XR Spine Lumbar 2 or 3 Views (02/25/2025 12:33 PM CDT) Anatomical Region Laterality Modality Spine N/A Computed Radiogr aphy 02/26/2025 3:28 PM CDT Narrative 02/26/2025 3:31 PM CDT EXAM DESCRIPTION: 1. XR HAND LEFT 3 OR MORE VIEWS 2. XR HAND RIGHT 3 OR MORE VIEWS; 3. XR FOOT RIGHT 3 OR MORE VIEWS; 4. XR FOOT LEFT 3 OR MORE VIEWS; 5. XR SPINE CERVICAL 2 OR 3 VIEWS; 6. XR SPINE LUMBAR 2 OR 3 VIEWS REASON FOR STUDY: Bilateral hand and foot pain. Arthralgia. neck pain low back pain ANASTASIA positive. Positive auto immune marker on an off back pain x 1 year FINDINGS: Three views each hand, three views each foot, three views lumbar spine and two views cervical spine submitted without comparison. Cervical spine: No acute fracture. No prevertebral [...] 3. Normal bilateral hand and foot evaluation. THIS IS AN ELECTRONICALLY VERIFIED FINAL REPORT 02/26/2025 3:31 PM - Electronically signed by Elvis Guzman M.D. MF: BRONWYN Report ID: [id number] Reading Location: [id number] Procedure Note Elvis Guzman MD - 02/26/2025 EXAM DESCRIPTION: 1. XR HAND LEFT 3 OR MORE VIEWS 2. XR HAND RIGHT 3 OR MORE VIEWS; 3. XR FOOT RIGHT 3 OR MORE VIEWS; 4. XR FOOT LEFT 3 OR MORE VIEWS; 5. XR SPINE CERVICAL 2 OR 3 VIEWS; 6. XR SPINE LUMBAR 2 OR 3 VIEWS REASON FOR STUDY: Bilateral hand and foot pain. Arthralgia. neck pain low back pain ANASTASIA positive. Positive auto immune marker on an off back pain x 1 year FINDINGS: Three views each hand, three views each foot, three views lumbar spine andtwo views cervical spine submitted without comparison. Cervical spine: No acute fracture. No prevertebral soft tissue swelling. Alignment is normal. The intervertebral disc space heights are normal. Lumbar spine: No acute fracture. Alignment is normal. The intervertebral disc space heights are normal. Hands: No erosions. No acute fracture. Alignment is normal. The joint spacesare normal. No dorsal wrist soft tissue swelling. Feet: No erosions. No acute fracture. The joint spaces are normal. IMPRESSION: 1. No radiographic evidence of inflammatory arthritis. 2. Normal cervical and lumbar spine evaluation. 3. Normal bilateral hand and foot evaluation. THIS IS AN ELECTRONICALLY VERIFIED FINAL REPORT 02/26/2025 3:31 PM - Electronically signed by Elvis Guzman M.D. MF: BRONWYN Report ID: [id number] Reading Location: [place] [address] [facility] Elvis Bray MD IMG XR PROCEDURES Final Result * XR Spine Cervical 2 or 3 Views (02/25/2025 12:33 PM CDT) Anatomical Region Laterality Modality Spine N/A Computed Radiogr aphy 02/26/2025 3:28 PM CDT Narrative 02/26/2025 3:31 PM CDT EXAM DESCRIPTION: 1. XR HAND LEFT 3 OR MORE VIEWS 2. XR HAND RIGHT 3 OR MORE VIEWS; 3. XR FOOT RIGHT 3 OR MORE VIEWS; 4. XR FOOT LEFT 3 OR MORE VIEWS; 5. XR SPINE CERVICAL 2 OR 3 VIEWS; 6. XR SPINE LUMBAR 2 OR 3 VIEWS REASON FOR STUDY: Bilateral hand and foot pain. Arthralgia. neck pain low back pain ANASTASIA positive. Positive auto immune marker on an off back pain x 1 year FINDINGS: Three views each hand, three views each foot, three views lumbar spine and two views cervical spine submitted without comparison. Cervical spine: No acute fracture. No prevertebral [...] 3. Normal bilateral hand and foot evaluation. THIS IS AN ELECTRONICALLY VERIFIED FINAL REPORT 02/26/2025 3:31 PM - Electronically signed by Elvis Guzman M.D. MF: BRONWYN Report ID: [id number] Reading Location: [id number] Procedure Note Elvis Guzman MD - 02/26/2025 EXAM DESCRIPTION: 1. XR HAND LEFT 3 OR MORE VIEWS 2. XR HAND RIGHT 3 OR MORE VIEWS; 3. XR FOOT RIGHT 3 OR MORE VIEWS; 4. XR FOOT LEFT 3 OR MORE VIEWS; 5. XR SPINE CERVICAL 2 OR 3 VIEWS; 6. XR SPINE LUMBAR 2 OR 3 VIEWS REASON FOR STUDY: Bilateral hand and foot pain. Arthralgia. neck pain low back pain ANASTASIA positive. Positive auto immune marker on an off back pain x 1 year FINDINGS: Three views each hand, three views each foot, three views lumbar spine andtwo views cervical spine submitted without comparison. Cervical spine: No acute fracture. No prevertebral soft tissue swelling. Alignment is normal. The intervertebral disc space heights are normal. Lumbar spine: No acute fracture. Alignment is normal. The intervertebral disc space heights are normal. Hands: No erosions. No acute fracture. Alignment is normal. The joint spacesare normal. No dorsal wrist soft tissue swelling. Feet: No erosions. No acute fracture. The joint spaces are normal. IMPRESSION: 1. No radiographic evidence of inflammatory arthritis. 2. Normal cervical and lumbar spine evaluation. 3. Normal bilateral hand and foot evaluation. THIS IS AN ELECTRONICALLY VERIFIED FINAL REPORT 02/26/2025 3:31 PM - Electronically signed by Elvis Guzman M.D. MF: BRONWYN Report ID: [id number] Reading Location: [place] [address] Srikanth Bray MD IMG XR PROCEDURES Final Result * XR Chest Pa Lateral 2 Views (02/25/2025 12:33 PM CDT) Anatomical Region Laterality Modality Body, Chest N/A Computed Radiogr aphy 03/02/2025 10:4 9 AM CDT Narrative 03/02/2025 10:49 AM CDT EXAM DESCRIPTION: XR CHEST PA LATERAL 2 VIEWS REASON FOR STUDY: pain ANASTASIA positive positive auto immune marker on an off back pain x 1 year TECHNIQUE: 2 radiographic view(s) of the chest. COMPARISON: None available FINDINGS: The cardiomediastinal silhouette appears normal. There is no airspace consolidation or pleural effusion. IMPRESSION: No acute findings THIS IS AN ELECTRONICALLY VERIFIED FINAL REPORT 03/02/2025 10:49 AM - Electronically signed by Gagan Johnson M.D. JR: Report ID: [id number] Reading Location: [id number] Procedure Note Gagan Johnson MD - 03/02/2025 EXAM DESCRIPTION: XR CHEST PA LATERAL 2 VIEWS REASON FOR STUDY: pain ANASTASIA positive positive auto immune marker on an off back pain x 1 year TECHNIQUE: 2 radiographic view(s) of the chest. COMPARISON: None available FINDINGS: The cardiomediastinal silhouette appears normal. There is no airspace consolidation or pleural effusion. IMPRESSION: No acute findings THIS IS AN ELECTRONICALLY VERIFIED FINAL REPORT 03/02/2025 10:49 AM - Electronically signed by Gagan Johnson M.D. JR: Report ID: [id number] Reading Location: [id number] Norma CANTOR IMG XR PROCEDURES Final Result * REFLEXIVE URINE CULTURE (02/24/2025 11:26 AM CDT) Urine culture [facility] Comment:CULTURE INDICATED - RESULTS TO FOLLOW 02/24/2025 11:2 6 AM CDT 02/24/2025 11:27 AM CDT Norma CANTOR LAB MICROBIOLOGY - GENERAL ORDERABLES Final Result [facility] [address] [place] [address] * (ABNORMAL) Urinalysis reflex to microscopic and culture Urine (02/24/2025 11:26 AM CDT) Color, ur YELLOW [facility] Appearance, ur CLEAR CLEAR [facility] Specific gravity 1.008 1.001 - 1.035 [facility] pH, ur 7.5 5.0 - 8.0 [facility] Glucose, ur NEGATIVE NEGATIVE [facility] Bilirubin, ur NEGATIVE NEGATIVE [facility] Ketones, ur NEGATIVE NEGATIVE [facility] Blood, ur NEGATIVE NEGATIVE [facility] Protein, ur, quant NEGATIVE NEGATIVE [facility] Nitrites, ur NEGATIVE NEGATIVE [facility] Leukocyte esterase, ur TRACE(A) NEGATIVE [facility] WBC, ur 0-5 < OR = 5 /HPF [facility] RBC, ur NONE SEEN < OR = 2 /HPF [facility] Epithelial cells, squamous, ur NONE SEEN < OR = 5 /HPF [facility] Bacteria, ur, quant MODERATE(A) NONE SEEN /HPF [facility] Hyaline cast NONE SEEN NONE SEEN /LPF [facility] Note [facility] Comment: This urine was analyzed for the presence of WBC, RBC, bacteria, casts, and other formed elements. Only those elements seen were reported. Urine 02/24/2025 11:2 6 AM CDT 02/24/2025 11:27 AM CDT Norma CANTOR LAB MICROBIOLOGY - GENERAL ORDERABLES Final Result [facility] [address] [place] [address] * CBC with auto differential (02/24/2025 11:26 AM CDT) WBC 7.8 3.8 - 10.8 Thousand/u L [facility] RBC, POC 4.51 3.80 - 5.10 Million/uL [facility] Hgb 14.0 11.7 - 15.5 g/dL [facility] Hct 43.8 35.0 - 45.0 % [facility] MCV 97.1 80.0 - 100.0 fL [facility] MCH 31.0 27.0 - 33.0 pg [facility] MCHC 32.0 32.0 - 36.0 g/dL [facility] Comment: For adults, a slight decrease in the calculated MCHC value (in the range of 30 to 32 g/dL) is most likely not clinically significant; however, it should be interpreted with caution in correlation with other red cell parameters and the patient's clinical condition. Rdw 11.8 11.0 - 15.0 % [facility] Platelets 297 140 - 400 Thousand/u L [facility] MPV 10.1 7.5 - 12.5 fL [facility] Neutrophils, abs 5,460 1,500 - 7,800 cells/uL [facility] Lymphocytes, abs 1,810 850 - 3,900 cells/uL [facility] Monocyte abs 382 200 - 950 cells/uL [facility] Eosinophils, abs 117 15 - 500 cells/uL [facility] Basophils, abs 31 0 - 200 cells/uL [facility] Neutrophils 70 % [facility] Lymphocyte pct 23.2 % [facility] Monocytes 4.9 % [facility] Eosinophils 1.5 % [facility] Basophils 0.4 % [facility] Blood 02/24/2025 11:2 6 AM CDT 02/24/2025 11:27 AM CDT Norma CANTOR LAB BLOOD ORDERAB LES Final Result [facility] [address] [place] [address] * Vitamin D 25 hydroxy (02/24/2025 11:26 AM CDT) Pathologist [facility] Vitamin D 25-OH 56 30 - 100 ng/mL [facility] Comment: Vitamin D Status 25-OH Vitamin D: Deficiency: <20 ng/mL Insufficiency: 20 - 29 ng/mL Optimal: > or = 30 ng/mL For 25-OH Vitamin D testing on patients on D2-supplementation and patients for whom quantitation of D2 and D3 fractions is required, the QuestAssureD(TM) 25-OH VIT D, (D2,D3), LC/MS/MS is recommended: order code 58969 (patients >2yrs). See Note 1 Note 1 For additional information, please refer to http://education.Rukuku/faq/RZK878 (This link is being provided for informational/ educational purposes only.) 02/24/2025 11:2 6 AM CDT 02/24/2025 11:27 AM CDT [facility] BLO[facility] ORDERAB LES Final Result Performing Organization Address [facility] Co de Phone Number [facility] [address] [place] [address] * Erythrocyte sedimentation rate (02/24/2025 11:26 AM CDT) Erythrocyte sedimentation rate 2 < OR = 20 mm/h [facility] Blood 02/24/2025 11:2 6 AM CDT 02/24/2025 11:27 AM CDT [facility] BLOOD ORDERAB LES Final Result Performing Organization Address [facility] de Phone Number [facility] [address] [place] [address] * (ABNORMAL) Urine culture (02/24/2025 11:26 AM CDT) Urine culture (A) [facility] Comment: CULTURE, URINE, ROUTINE Micro Number: [id number] Test Status: Final Specimen Source: Urine Specimen Quality: Adequate Result: Greater than 100,000 CFU/mL of Group B Streptococcus isolated Beta-hemolytic streptococci are predictably susceptible to Penicillin and other beta-lactams. Susceptibility testing not routinely performed. Please contact the laboratory within 3 days if susceptibility testing is desired. Comment: Erythromycin and clindamycin are not recommended for treatment of urinary tract infections, but clindamycin may be useful for treatment of rectovaginal colonization or infection. Any amount of group B Streptococcus in urine specimens obtained from females is a marker of genital tract colonization. If this patient is , please refer to ACOG guidelines for appropriate screening and management of women. 02/24/2025 11:2 6 AM CDT 02/24/2025 11:27 AM CDT Norma CANTOR LAB MICROBIOLOGY - GENERAL ORDERABLES Final Result Performing Organization Address City/[facility]/ZIP Co de Phone Number [facility] [address] [place] [address] * CRP (acute phase) (02/24/2025 11:26 AM CDT) C-RP <3.0 <8.0 mg/L [facility] Blood 02/24/2025 11:2 6 AM CDT 02/24/2025 11:27 AM CDT Norma CANTOR LAB BLOOD ORDERAB LES Final Result Performing Organization Address [facility] Co de Phone Number [facility] [address] [place] [address] * Creatine kinase (CK), total (02/24/2025 11:26 AM CDT) Pathologist [facility] CK 36 20 - 239 U/L [facility] Blood 02/24/2025 11:2 6 AM CDT 02/24/2025 11:27 AM CDT Norma CANTOR LAB BLOOD ORDERAB LES Final Result Performing Organization Address [facility] de Phone Number [facility] [address] [place] [address] * Comprehensive metabolic panel (02/24/2025 11:26 AM CDT) Pathologist [facility] Glucose 87 65 - 99 mg/dL [facility] Comment: Fasting reference interval BUN 7 7 - 25 mg/dL [facility] Creatinine 0.65 0.50 - 0.96 mg/dL [facility] eGFR 123 > OR = 60 mL/min/1.7 3m2 [facility] BUN/creat ratio SEE NOTE: 6 - 22 (calc) [facility] Comment: Not Reported: BUN and Creatinine are within reference range. Sodium 137 135 - 146 mmol/L [facility] Potassium, pl 4.0 3.5 - 5.3 mmol/L [facility] Chloride 102 98 - 110 mmol/L [facility] CO2 28 20 - 32 mmol/L [facility] Calcium 9.4 8.6 - 10.2 mg/dL [facility] Protein, sr 7.2 6.1 - 8.1 g/dL [facility] Albumin 4.7 3.6 - 5.1 g/dL [facility] GLOBULIN 2.5 1.9 - 3.7 g/dL (calc) [facility] Alb/glob ratio 1.9 1.0 - 2.5 (calc) [facility] Bilirubin, total 0.6 0.2 - 1.2 mg/dL [facility] Alk phos 57 31 - 125 U/L [facility] AST 17 10 - 30 U/L [facility] ALT (SGPT) 26 6 - 29 U/L [facility] Blood 02/24/2025 11:2 6 AM CDT 02/24/2025 11:27 AM CDT us Norma CANTOR LAB BLOOD ORDERAB LES Final Result [facility] [address] [address] [place] [address] * avise with anti carp and sle monitor - Miscellaneous Test (02/24/2025 10:06 AM CDT) Miscellaneous Norma CANTOR LAB BLOOD ORDERAB LES Edited Result - Final EXTERNAL LAB * Pap with reflex to High Risk HPV and Genotyping (Cytology Component) (12/12/2023 10:17 AM CDT) Thin prep (Pap test) 12/12/2023 10:17 AM CDT 12/13/2023 2:56 PM CDT Narrative PATHOLOGY [facility] - 12/15/2023 2:38 PM CDT EPIC results best viewed via link to PDF [address] [address] Tele: Charlotte Marie MD - Head Of Business Development CYTOLOGY REPORT Note to Patients: This report may contain a detailed description of human tissue sent by a health care provider to the laboratory for pathologic evaluation. The content of this report is essential for diagnosis and may provide important critical findings. This information may be unfamiliar to patients to review without a medical professional present. It is advised that the patient review this report in the presence of a health care provider who can answer questions and explain the details. Patient Name: MOON BRAGG Address: [address] [place] [address] Gender: F : 1995 (Age: 28) Service: Location: [facility] : [id number] Hospital #: [id number] [place] [facility] [place] Taken: 12/12/2023 Reported: 12/15/2023 Physician(s): Chari Slater M.D. FINAL DIAGNOSIS: SOURCE OF SPECIMEN - ThinPrep Pap w/ reflex HPV: STATEMENT OF ADEQUACY Source: Cervical/Endocervical - Satisfactory for interpretation - Endocervical /Transformation Zone component present - Case screened using computer assisted imaging technology GENERAL CATEGORIZATION: - Negative for intraepithelial lesion or malignancy lewo/12/15/2023 14:38Kristin Carlos (ASCP) Report Reviewed and Electronically Signed By Kristin Carlos (ASCP)Clerical Data Follow A; [id number] CLINICAL DIAGNOSIS AND HISTORY Last Menstrual Period: 12/07/2023 REPORT IMAGES AND/OR SCANNED DOCUMENTS ONLY VIEWABLE IN PDF FORMAT The Pap test is a screening test used to aid in the detection of cervical cancer and its precursors. It should not be the sole means by which malignant and premalignant lesions are diagnosed. Both false negative and false positive results may occur. It also has poor sensitivity for the detection of endometrial lesions and should not be used to evaluate suspected endometrial abnormalities. For these reasons it is most important to obtain Pap tests at regular intervals, as recommended by your physician or nurse practitioner. us Chari Slater MD LAB CYTOLOGY ORDERABL ES Final Result Performing Organization Address City/[facility] Co de Phone Number PATHOLOGY [facility] Laboratory [address] [place] [address] * Hepatitis C antibody Blood (11/16/2023 8:28 AM CDT) Hep C Ab Nonreactive Nonreactive Comment: Interpretive Data Nonreactive: Antibodies to HCV not detected. Does NOT exclude the possibility of recent exposure to HCV. Equivocal: Equivocal for HCV antibodies. Supplemental molecular testing will be automatically performed to determine infection status in accordance with current CDC screening recommendations. Reactive: Positive for HCV antibodies. This may represent current or past HCV infection. Supplemental molecular testing will be automatically performed to determine current infection status in accordance with current CDC screening recommendations. Interpretive data was last revised on 2019. Testing performed by: [facility], [address] [place] [address]., [id number] Blood 11/16/2023 8:28 AM CDT 11/16/2023 12:59 PM CDT us Ning Alamo NP LAB MICROBIOLOGY - GENERAL ORDER LATOSHA Final Result Performing Organization Address City/[facility] Co de Phone Number [facility] 1 [facility] Department [place] [address] from Last 3 Months or Most Recently Relevant to Health Maintenance Insurance [facility] CHOICE PLUS [facility] CHOICE PLUS CIG OPEN ACCESS [facility] CHOICE PLUS [facility] CHOICE PLUS Advance Directives For more information, please contact: [phone] * Full Code (Latest Code Status on File) Date Activated Date Inactivated Comments 09/30/2022 12:19 PM 10/02/2022 6:48 PM * Full Code Date Activated Date Inactivated Comments 09/29/2022 11:11 PM 09/30/2022 12:19 PM Full CPR i n case of cardiopulmonary arrest Care Teams Citrix Systems Administrator Relationship Specialty Start Date End Date Bella Shukla PA [address] [place] [address] PCP - General Physician Billet Examiner 02/24/25 Chari Slater MD [address] [place] [address] [address] [address] Consulting Physician Obstetrics and Gynecology 12/12/23 Bay CenterLurdes MD [address] [place] [address] Surgeon Medical Oncology 12/12/23 Ning Alamo NP [address] [place] [address] Nurse Practitioner Family Medicine 11/29/24 Srikanth Bray MD [address] [place] [address] Consulting Physician Rheumatology 04/11/25
--- OUTSIDE RECORDS SUMMARY | 2025-04-12 21:16 | XMS_ITS | Encounter Summary ---
Author Organization [facility] Address [facility] [place] [address] Care Team Providers Care Artificial Marble Worker Name Role Phone Yves Jade MD Primary Care Provider [phone] Encounter Details Date Type Department Care Team (Late st Contact Info) Description 04/08/2022 [place] Message Enc [facility] Medical Group Multispecialty Care - [place] [address] [place] [address] [address] [place] [address] [place] [address] [place] [address] [address] [place] [address] OB Social History Tobacco Use Types Packs/Day Years [...] Sex Assigned at Female 09/11/2024 1:27 PM BARBED WIRE MACHINE OPERATOR Legal Sex Female 2:02 PM BARBED WIRE MACHINE OPERATOR Gender Identity Female 09/11/2024 1:27 PM BARBED WIRE MACHINE OPERATOR Sexual Orientation Straight 09/11/2024 1: 30 PM BARBED WIRE MACHINE OPERATOR documented as of this encounter Plan of Treatment Not on file documented as of this encounter Visit Diagnoses Not on filedocumented in this encounter Additional Health Concerns Infection Onset Date Last Indicated Resolved Time COVID-19 Rule Out 06/13/2022 06/13/2022 06/13/2022 1:31 PM BARBED WIRE MACHINE OPERATOR COVID-19 Rule Out 06/13/2022 06/13/2022 06/14/2022 3:36 PM BARBED WIRE MACHINE OPERATOR COVID-19 Confirmed 06/13/2022 06/13/2022 12:32 AM BARBED WIRE MACHINE OPERATOR COVID-19 Rule Out 09/23/2022 09/23/2022 09/23/2022 1:13 PM CDT Respiratory Rule Out 10/02/2024 10/02/2024 025 10:22 AM CDT Assessment Noted Time PHQ-9 Depression Total Score: 0 08/17/19 9:06 AM BARBED WIRE MACHINE OPERATOR documented as of this encounter Care Teams Artificial Marble Worker Relationship Specialty Start Date End Date Yves Jade MD [facility] [address] PCP - General INTERNAL MEDICINE 05/25/21 01/28/25 documented as of this encounter
--- OUTSIDE RECORDS SUMMARY | 2025-04-12 21:16 | XMS_ITS | Encounter Summary ---
Author Organization [facility] Address [facility] [place] [address] Care Team Providers Care Multi Skilled Operator Name Role Phone Yves Jade MD Primary Care Provider [phone] Encounter Details Date Type Department Care Team (Late st Contact Info) Description 06/15/2022 CompuMedt Message Enc [facility] Medical Group Multispecialty Care - [place] [address] [place] [address] [address] [place] [address] [place] [address] [place] [address] [address] [place] [address] Covid Social History Tobacco Use Types Packs/Day Years [...] Sex Assigned at Female 09/11/2024 1:27 PM MULTI TOWNSHIP ASSESSOR Legal Sex Female 2:02 PM MULTI TOWNSHIP ASSESSOR Gender Identity Female 09/11/2024 1:27 PM MULTI TOWNSHIP ASSESSOR Sexual Orientation Straight 09/11/2024 1: 30 PM MULTI TOWNSHIP ASSESSOR COVID-19 Exposure Response Date Recorded In the last 10 days, have yo u been in contact with someone who was confirmed or suspected to have Coronavirus/COVID-19? No / Unsure 06/13/2022 11:43 AM MULTI TOWNSHIP ASSESSOR documented as of this encounter Plan of Treatment Not on file documented as of this encounter Visit Diagnoses Not on filedocumented in this encounter Additional Health Concerns Infection Onset Date Last Indicated Resolved Time COVID-19 Confirmed 06/13/2022 06/13/2022 12:32 AM MULTI TOWNSHIP ASSESSOR COVID-19 Rule Out 09/23/2022 09/23/2022 09/23/2022 1:13 PM CDT Respiratory Rule Out 10/02/2024 10/02/2024 025 10:22 AM CDT Assessment Noted Time PHQ-9 Depression Total Score: 0 08/17/19 22 9:06 AM MULTI TOWNSHIP ASSESSOR documented as of this encounter Care Teams Multi Skilled Operator Relationship Specialty Start Date End Date Yves Jade MD [address] [address] PCP - General INTERNAL MEDICINE 05/25/21 01/28/25 documented as of this encounter
--- OUTSIDE RECORDS SUMMARY | 2025-04-12 21:17 | XMS_ITS | Encounter Summary ---
Author Organization [facility] Address [facility] [place] [address] Care Team Providers Care Director Dance Name Role Phone Yves Jade MD Primary Care Provider Encounter Details Date Type Department Care Team (Late st Contact Info) Description 11/28/2024 EuroSite Powert Message Enc [facility] Medical Group Multispecialty Care - [place] [address] [facility] [address] [place] [address] [place] [address] [place] [address] [address] [place], [place] [id number] [facility] low Social History Tobacco Use Types Packs/Day Years Used Date Smoking Tobacco: Never Smokeless Tobacco: Never Comments:counseled by Dr Temitope villanueva Alcohol Use Standard Drinks/Week Comments Yes 0 (1 standard drink = 0.6 oz pur e alcohol) socially PHQ-2 Answer Date Recorded Patient Health Questionnaire-2 Score 1 10/02/2024 Comments No Sex and Gender Information Value Date Recorded Sex Assigned at Female 09/11/2024 1:27 PM VIRTUAL ASSISTANT FOR ADVERTISERS Legal Sex Female 2:02 PM VIRTUAL ASSISTANT FOR ADVERTISERS Gender Identity Female 09/11/2024 1:27 PM VIRTUAL ASSISTANT FOR ADVERTISERS Sexual Orientation Straight 09/11/2024 1: 30 PM VIRTUAL ASSISTANT FOR ADVERTISERS documented as of this encounter Plan of Treatment Not on file documented as of this encounter Visit Diagnoses Not on filedocumented in this encounter Additional Health Concerns Assessment Noted Time PHQ-9 Depression Total Score: 2 10/03/19 25 9:41 AM CDT documented as of this encounter Care Teams Director Dance Relationship Specialty Start Date End Date Yves Jade MD [address] [facility] [address] [place] [address] PCP - General INTERNAL MEDICINE 05/25/21 01/28/25 documented as of this encounter
--- OUTSIDE RECORDS SUMMARY | 2025-04-12 21:17 | XMS_ITS | Encounter Summary ---
Author Organization [facility] Address [address] [place] [address] Phone Care Team Providers Care Parlor Chaperone Name Role Phone Chari Slater MD Unavailable Lurdes Stanford MD Unavailable Ning Alamo NP Unavailable Bella Shukla Primary Care Pr ovider Srikanth Bray MD Unavailable [phone] Encounter Details Date Type Department Care Team (Late st Contact Info) Description 04/11/2025 Telephone [facility] [address] [place] [phone] Norma Padilla PA [address] [place] [address] Social History Tobacco Use Types Packs/Day Years Used Date Smoking Tobacco: Never Smokeless Tobacco: Never [facility] Utilities Answer Date Recorded In the past 12 months has e electric, gas, oil, or water company threatened to [...] often do you attend chur ch or adventism services? Never 01/19/2024 Do you belong to any clubs o r organizations such as zoroastrian groups, unions, fraternal or athletic groups, or [...] staff should administer the PHQ-9) 0 03/20/2024 [facility] - Occupational Stress Questionnaire Answer [...] place to sleep or slept in a correction (including now)? No 10/02/2022 PHQ-9 Answer Date [...] any time in the [facility], were you homeless or living in a correction (including now)? No 01/19/2024 Personal Safety Answer Date Recorded Have you ever been in or are you currently in a harmful physical or emotional relationship or is someone making you feel afraid or unsafe? Denies 06/13/2024 Comments No Sex and Gender Information Value Date Recorded Sex Assigned at Not on file Legal Sex Female 10:26 PM ORACLE SCM CONSULTANT Gender Identity Not on file Sexual Orientation Not on file documented as of this encounter Miscellaneous Notes * Telephone Encounter - Norma Padilla PA - 04/11/2025 3:37 PM CDT Thank you. * Telephone Encounter - Annabella Vail - 04/11/2025 1:10 PM CDT Letter generated and faxed to [phone] per pt request. Mailed to pt as well * Telephone Encounter - Norma Padilla PA - 04/11/2025 12:35 PM CDT To whom it may concern: Mrs. Ghazal Bragg ( 1995) is a patient to our rheumatology practice. She has joint pain, joint swelling, chronic fatigue and sicca symptoms. She has abnormal rheumatology labs and is on prescription medication for her symptoms. At this time she is able to do her current daily activities butshe deals with daily joint pain and chronic fatigue. I At this time it may take her longer to finish her daily tasks and work and it will help out if she can have extra time to finish assignments and also if she can be given extra time for tests, if possible. We have been treating patient for past 2 months. She was diagnosed by checking blood tests, hand ultrasound and multiple xrays along with exam and taking a thorough history. At this time her serologies and physical findings are most compatible with a systemic lupus erythematosus diagnosis but we are still awaiting results of echocardiogram and pulmonary function tests to also rule out scleroderma. We will be monitoring patient at least every 3 months and as needed. We have prescribed hydroxychloroquine for her symptoms. If you have any more questions or concerns please do not hesitate to contact us. Sincerely, Norma Padilla PA-C, MPAS documented in this encounter Plan of Treatment Not on file documented as of this encounter Visit Diagnoses Not on filedocumented in this encounter Care Teams Parlor Chaperone Relationship Specialty Start Date End Date Bella Shukla PA [address] [place] [address] PCP - General Physician Orbitread Operator 02/24/25 Chari Slater MD [facility] [address] [place] [address] Consulting Physician Obstetrics and Gynecology 12/12/23 Lurdes Stanford MD [address] [place] [address] Surgeon Medical Oncology 12/12/23 Ning Alamo NP [address] [place] [address] Nurse Practitioner Family Medicine 11/29/24 Srikanth Bray MD [address] [place] [address] Consulting Physician Rheumatology 04/11/25 documented as of this encounter
--- OUTSIDE RECORDS SUMMARY | 2025-04-12 21:17 | XMS_ITS | Encounter Summary ---
Author Organization [facility] Address [facility]6 [place] [address] Care Team Providers Care Wood Stock Blank Handler Name Role Phone Yves Jade MD Primary Care Provider [phone] Encounter Details Date Type Department Care Team (Late st Contact Info) Description 09/14/2022 Audicus Message Enc [facility] Medical Group Multispecialty Care - [address] [place] [address] [facility], [facility] Provider lab results Social History Tobacco Use Types Packs/Day Years Used Date Smoking Tobacco: Never Smokeless Tobacco: Never Comments:counseled by Dr Temitope villanueva Alcohol Use Standard Drinks/Week Comments Yes 0 (1 standard drink = 0.6 oz pur e alcohol) socially PHQ-2 Answer Date Recorded Patient Health Questionnaire-2 Score 0 09/12/2022 Comments Yes Sex and Gender Information Value Date Recorded Sex Assigned at Female 09/11/2024 1:[address] COLLECTIONS OFFICER Legal Sex Female 2:[address] COLLECTIONS OFFICER Gender Identity Female 09/11/2024 1:[address] COLLECTIONS OFFICER Sexual Orientation Straight 09/11/2024 1: [address] COLLECTIONS OFFICER COVID-19 Exposure Response Date Recorded In the last 10 days, have yo u been in contact with someone who was confirmed or suspected to have Coronavirus/COVID-19? No / Unsure 09/12/2022 3:[address] COLLECTIONS OFFICER documented as of this encounter Plan of Treatment Not on file documented as of this encounter Visit Diagnoses Not on filedocumented in this encounter Additional Health Concerns Infection Onset Date Last Indicated Resolved Time COVID-19 Rule Out 09/23/2022 09/23/2022 09/23/2022 1:13 PM CDT Respiratory Rule Out 10/02/2024 10/02/2024 025 10:22 AM CDT Assessment Noted Time PHQ-9 Depression Total Score: 0 08/17/19 22 9:[address] COLLECTIONS OFFICER documented as of this encounter Care Teams Wood Stock Blank Handler Relationship Specialty Start Date End Date Yves Jade MD [address] [address] PCP - General INTERNAL MEDICINE 05/25/21 01/28/25 documented as of this encounter
--- OUTSIDE RECORDS SUMMARY | 2025-04-12 21:17 | XMS_ITS | Encounter Summary ---
Author Organization [facility] Address [address] [place] [address] Care Team Providers Care Advertising Dispatch Clerk Name Role Phone Yves Jade MD Primary Care Provider [phone] Reason for Visit * Reason Onset Date Comments Medication Information 09/19/2022 Encounter Details Date Type Department Care Team (Late st Contact Info) Description 09/19/2022 MyChart Message Enc [facility] Medical Group Multispecialty Care - [place] [address] [address] [place] [address] Yves Jade MD [address] [place] [address] [address] [place] [address] Congestion Social History Tobacco Use Types Packs/Day Years Used Date Smoking Tobacco: Never Smokeless Tobacco: Never Comments:counseled by Dr Temitope villanueva Alcohol Use Standard Drinks/Week Comments Yes 0 (1 standard drink = 0.6 oz pur e alcohol) socially PHQ-2 Answer Date Recorded Patient Health Questionnaire-2 Score 0 09/12/2022 Comments Yes Sex and Gender Information Value Date Recorded Sex Assigned at Female 09/11/2024 1:27 PM CLINICAL TEAM LEAD Legal Sex Female 2:02 PM CLINICAL TEAM LEAD Gender Identity Female 09/11/2024 1:27 PM CLINICAL TEAM LEAD Sexual Orientation Straight 09/11/2024 1: 30 PM CLINICAL TEAM LEAD COVID-19 Exposure Response Date Recorded In the last 10 days, have yo u been in contact with someone who was confirmed or suspected to have Coronavirus/COVID-19? No / Unsure 09/12/2022 3:39 PM CLINICAL TEAM LEAD documented as of this encounter Progress Notes * Alex Cullen - 09/19/2022 10:43 AM CDT Patient is wanting to know what she can take OTC for her congestion due to being . She feels she has same thing her son has and doesn't need to come in if there's something she can take at home. documented in this encounter Plan of Treatment Not on file documented as of this encounter Visit Diagnoses Not on filedocumented in this encounter Additional Health Concerns Infection Onset Date Last Indicated Resolved Time COVID-19 Rule Out 09/23/2022 09/23/2022 09/23/2022 1:13 PM CDT Respiratory Rule Out 10/02/2024 10/02/2024 025 10:22 AM CDT Assessment Noted Time PHQ-9 Depression Total Score: 0 08/17/19 22 9:06 AM CLINICAL TEAM LEAD documented as of this encounter Care Teams Advertising Dispatch Clerk Relationship Specialty Start Date End Date Yves Jade MD [address] [address] PCP - General INTERNAL MEDICINE 05/25/21 01/28/25 documented as of this encounter
--- OUTSIDE RECORDS SUMMARY | 2025-04-12 21:17 | XMS_ITS | Encounter Summary ---
Author Organization [facility] Address [address] [place] [address] Phone Care Team Providers Care Manager Social Name Role Phone Chari Slater MD Unavailable Lurdes Stanford MD Unavailable Ning Alamo NP Unavailable Bella Shukla Primary Care Pr ovider Srikanth Bray MD Unavailable Encounter Details Date Type Department Care Team (Late st Contact Info) Description 04/11/2025 Telephone [facility] [address] [place] [phone] Norma Padilla PA [address] [place] [address] Social History Tobacco Use Types Packs/Day Years Used Date Smoking Tobacco: Never Smokeless Tobacco: Never [facility] Utilities Answer Date Recorded In the [...] often do you attend chur ch or anabaptism services? Never 01/19/2024 Do you belong to any clubs o r organizations such as protestant groups, unions, fraternal or athletic groups, or [...] staff should administer the PHQ-9) 0 03/20/2024 [facility] - Occupational Stress Questionnaire Answer [...] place to sleep or slept in a senior care (including now)? No 10/02/2022 PHQ-9 Answer Date [...] any time in the past 12 m [facility], were you homeless or living in a senior care (including now)? No 01/19/2024 Personal Safety Answer Date Recorded Have you ever been in or are you currently in a harmful physical or emotional relationship or is someone making you feel afraid or unsafe? Denies 06/13/2024 Comments No Sex and Gender Information Value Date Recorded Sex Assigned at Not on file Legal Sex Female 10:26 PM FOREST PATHOLOGY TEACHER Gender Identity Not on file Sexual Orientation Not on file documented as of this encounter Miscellaneous Notes * Telephone Encounter - Lizet Polanco - 04/11/2025 8:22 AM CDT She is scheduled to have both the Echo and PFT done on 04/22/25 * Telephone Encounter - Norma Padilla PA - 04/11/2025 8:13 AM CDT Did she get echo and pft's? documented in this encounter Plan of Treatment Not on file documented as of this encounter Visit Diagnoses Not on filedocumented in this encounter Care Teams Manager Social Relationship Specialty Start Date End Date Bella Shukla PA [address] [place] [address] PCP - General Physician Fiberglass Finisher 02/24/25 Chari Slater MD [address] [facility] [address] [place] [address] Consulting Physician Obstetrics and Gynecology 12/12/23 Lurdes Stanford MD [address] [place] [address] Surgeon Medical Oncology 12/12/23 Ning Alamo NP [address] [place] [address] Nurse Practitioner Family Medicine 11/29/24 Srikanth Bray MD [address] [place] [address] Consulting Physician Rheumatology 04/11/25 documented as of this encounter
--- OUTSIDE RECORDS SUMMARY | 2025-04-12 21:17 | XMS_ITS | Encounter Summary ---
Author Organization [facility] Address [address] [place] [address] Care Team Providers Care Sack Sorter Name Role Phone Yves Jade MD Primary Care Provider [phone] Encounter Details Date Type Department Care Team (Latest Contact Info) Description 10/03/2022 Redu.ust Message Enc [facility] Medical Group Multispecialty Care [place] [address] [place] [address] [address] [place] [address] [place] [address] [place] [address] [address] [place] [address] Congratulations! Social History Tobacco Use Types Packs/Day Years Used Date Smoking Tobacco: Never Smokeless Tobacco: Never Comments:counseled by Dr Temitope villanueva Alcohol Use Standard Drinks/Week Comments Yes 0 (1 standard drink = 0.6 oz pur e alcohol) socially PHQ-2 Answer Date Recorded Patient Health Questionnaire-2 Score 0 09/12/2022 Comments Yes Sex and Gender Information Value Date Recorded Sex Assigned at Female 09/11/2024 1:27 PM HYDROMETEOROLOGICAL TECHNICIAN Legal Sex Female 2:02 PM HYDROMETEOROLOGICAL TECHNICIAN Gender Identity Female 09/11/2024 1:27 PM HYDROMETEOROLOGICAL TECHNICIAN Sexual Orientation Straight 09/11/2024 1: 30 PM HYDROMETEOROLOGICAL TECHNICIAN COVID-19 Exposure Response Date Recorded In the last 10 days, have yo u been in contact with someone who was confirmed or suspected to have Coronavirus/COVID-19? No / Unsure 09/23/2022 11:41 AM CDT documented as of this encounter Plan of Treatment Not on file documented as of this encounter Visit Diagnoses Not on filedocumented in this encounter Additional Health Concerns Infection Onset Date Last Indicated Resolved Time Respiratory Rule Out 10/02/2024 10/02/2024 025 10:22 AM CDT Assessment Noted Time PHQ-9 Depression Total Score: 0 08/17/19 22 9:06 AM HYDROMETEOROLOGICAL TECHNICIAN documented as of this encounter Care Teams Sack Sorter Relationship Specialty Start Date End Date Yves Jade MD [address] [address] PCP - General INTERNAL MEDICINE 05/25/21 01/28/25 documented as of this encounter
--- OUTSIDE RECORDS SUMMARY | 2025-04-12 21:17 | XMS_ITS | Encounter Summary ---
Author Organization [facility] Address [facility] [place] [address] Care Team Providers Care Horticulture Superintendent Name Role Phone Yves Jade MD Primary Care Provider Encounter Details Date Type Department Care Team (Latest Contact Info) Description 09/16/2024 EditGridt Message Enc [facility] Medical Group Multispecialty Care - [place] [address] [place] [address] [address] [place] [address] [place] [address] [place] [address] [address] [place], [place] [id number] Blood test results Social History Tobacco Use Types Packs/Day Years Used Date Smoking Tobacco: Never Smokeless Tobacco: Never Comments:counseled by Dr Temitope villanueva Alcohol Use Standard Drinks/Week Comments Yes 0 (1 standard drink = 0.6 oz pur e alcohol) socially PHQ-2 Answer Date Recorded Patient Health Questionnaire-2 Score 1 09/11/2024 Comments No Sex and Gender Information Value Date Recorded Sex Assigned at Female 09/11/2024 1:27 PM MANAGER SPECIAL EVENTS Legal Sex Female 2:02 PM MANAGER SPECIAL EVENTS Gender Identity Female 09/11/2024 1:27 PM MANAGER SPECIAL EVENTS Sexual Orientation Straight 09/11/2024 1: 30 PM MANAGER SPECIAL EVENTS documented as of this encounter Plan of Treatment Not on file documented as of this encounter Visit Diagnoses Not on filedocumented in this encounter Additional Health Concerns Infection Onset Date Last Indicated Resolved Time Respiratory Rule Out 10/02/2024 10/02/2024 025 10:22 AM CDT Assessment Noted Time PHQ-9 Depression Total Score: 7 09/12/19 25 2:21 PM MANAGER SPECIAL EVENTS documented as of this encounter Care Teams Horticulture Superintendent Relationship Specialty Start Date End Date Yves Jade MD [address] [address] PCP - General INTERNAL MEDICINE 05/25/21 01/28/25 documented as of this encounter
--- OUTSIDE RECORDS SUMMARY | 2025-04-12 21:17 | XMS_ITS | Encounter Summary ---
Author Organization [facility] Address [address] [place] [address] Phone Care Team Providers Care Windchill Administrator Name Role Phone Chari Slater MD Unavailable Lurdes Stanford MD Unavailable Ning Alamo NP Unavailable Bella Shukla Primary Care Pr ovider Srikanth Bray MD Unavailable Encounter Details Date Type Department Care Team (Late st Contact Info) Description 02/26/2025 Results Follow-Up [facility] [address] [place] [phone] Norma Padilla PA [address] [place] [address] Creatine kinase (CK), total, Erythrocyte sedimentation rate, CBC with auto differential, Additional followed-up results: 8 Social History Tobacco Use Types Packs/Day Years Used Date Smoking Tobacco: Never Smokeless Tobacco: Never [facility] Utilities Answer Date Recorded In the [...] often do you attend chur ch or sabianist services? Never 01/19/2024 Do you belong to any clubs o r organizations such as congregation groups, unions, fraternal or athletic groups, or [...] staff should administer the PHQ-9) 0 03/20/2024 [facility] - Occupational Stress Questionnaire Answer Date [...] place to sleep or slept in a [place] health care facility (including now)? No 10/02/2022 PHQ-9 Answer Date [...] any time in the past 12 m [facility], were you homeless or living in a [place] health care facility (including now)? No 01/19/2024 Personal Safety Answer Date Recorded Have you ever been in or are you currently in a harmful physical or emotional relationship or is someone making you feel afraid or unsafe? Denies 06/13/2024 Comments No Sex and Gender Information Value Date Recorded Sex Assigned at Not on file Legal Sex Female 10:26 PM LITHOGRAPHIC PHOTOGRAPHER APPRENTICE Gender Identity Not on file Sexual Orientation Not on file documented as of this encounter Miscellaneous Notes * Result Encounter Note - Norma Padilla PA - 03/03/2025 3:48 PM CDT + brianne, + anti centromere AB. Will discuss at her C2 visit. * Result Encounter Note - Norma Padilla PA - 02/26/2025 9:47 AM CDT She grew strep in urine, this tends to be vaginal contaminant, if she has uti symptoms to f/u with pcp. Will discuss all labs at her c2 visit. documented in this encounter Plan of Treatment Not on file documented as of this encounter Visit Diagnoses Not on filedocumented in this encounter Care Teams Windchill Administrator Relationship Specialty Start Date End Date ShayyBella kathleen DEVAUGHN Wong [address] [place] [address] PCP - General Physician Windows Technical Specialist 02/24/25 Chari Slater MD [facility] [address] Giordano [facility] [address] [place] [address] Consulting Physician Obstetrics and Gynecology 12/12/23 Lurdes Stanford MD [address] [place] [address] Surgeon Medical Oncology 12/12/23 [place] [address] Nurse Practitioner Family Medicine 11/29/24 Srikanth Bray MD [address] [place] [address] Consulting Physician Rheumatology 04/11/25 documented as of this encounter
--- OUTSIDE RECORDS SUMMARY | 2025-04-12 21:17 | XMS_ITS | Encounter Summary ---
Author Organization [facility] Address [facility] [place] [address] Care Team Providers Care Research Instrumentation Technician Name Role Phone Yves Jade MD Primary Care Provider [phone] Encounter Details Date Type Department Care Team (Latest Contact Info) Description 07/12/2023 ActionFlowt Message Enc [facility] Medical Group Multispecialty Care - [place] [address] [place] [address] [address] [place] [address] [place] [address] [place] [address] [address] [place], [place] [id number] Letter for school Social History Tobacco Use Types Packs/Day Years Used Date Smoking Tobacco: Never Smokeless Tobacco: Never Comments:counseled by Dr Temitope villanueva Alcohol Use Standard Drinks/Week Comments Yes 0 (1 standard drink = 0.6 oz pur e alcohol) socially PHQ-2 Answer Date Recorded Patient Health Questionnaire-2 Score 1 04/17/2023 Comments No Sex and Gender Information Value Date Recorded Sex Assigned at Female 09/11/2024 1:27 PM CERTIFIED CREDIT COUNSELOR Legal Sex Female 2:02 PM CERTIFIED CREDIT COUNSELOR Gender Identity Female 09/11/2024 1:27 PM CERTIFIED CREDIT COUNSELOR Sexual Orientation Straight 09/11/2024 1: 30 PM CERTIFIED CREDIT COUNSELOR documented as of this encounter Plan of Treatment Not on file documented as of this encounter Visit Diagnoses Not on filedocumented in this encounter Additional Health Concerns Infection Onset Date Last Indicated Resolved Time Respiratory Rule Out 10/02/2024 10/02/2024 025 10:22 AM CDT Assessment Noted Time PHQ-9 Depression Total Score: 0 08/17/19 22 9:06 AM CERTIFIED CREDIT COUNSELOR documented as of this encounter Care Teams Research Instrumentation Technician Relationship Specialty Start Date End Date Yves Jade MD [address] [address] PCP - General INTERNAL MEDICINE 05/25/21 01/28/25 documented as of this encounter
[2025-04-12 21:22] VITALS: BP 129/69; PULSE 100; RESP 16; TEMP 37.4; O2SAT 100
[2025-04-12 21:44] LABS: Hematocrit 39.6 % (37.0-47.0); Hemoglobin 13.2 g/dL (12.0-15.0); Immature Granulocyte Percent A 0.4 % (0-0.5); Lymphocytes Absolute Auto 1.29 K/mm3 (0.9-3.2); Mean Corpuscular HGB Conc 33.3 g/dl (32-36); Mean Corpuscular Hemoglobin 30.4 pg (26-34); Mean Corpuscular Volume 91.2 fl (80-100); Nucleated Red Blood Cells Absolute Auto 0.000 K/mm3 (0.0-0.012); Nucleated Red Blood Cells Perc 0.0 % (0.0-0.2); Platelet Count Result 295 k/mm3 (150-375); Red Blood Count 4.34 M/mm3 (4.2-5.4); White Blood Count 8.0 K/mm3 (4.5-10.0)
[2025-04-12 21:55] LABS: INR 1.0; Prothrombin Time 13.4 Seconds (11.1-14.7)
[2025-04-12 21:56] LABS: Partial Thromboplastin Time 32.5 Seconds (22.3-36.8)
[2025-04-12 22:02] LABS: Alanine Aminotransferase 22 U/L (6-35); Albumin Level 4.6 g/dL (3.5-5.1); Alkaline Phosphatase 56 U/L (38-126); Anion Gap 6 mmol/L (4-12); Aspartate Amino Transferase 27 U/L (14-36); Bilirubin,Total 0.5 mg/dL (0.2-1.3); Blood Urea Nitrogen 14 mg/dL (7-17); Calcium 9.0 mg/dL (8.4-10.2); Carbon Dioxide 27 mmol/L (22-30); Chloride 105 mmol/L (98-107); Estimated CRCL calculation 70 ml/min; Estimated Glomerular Filt Rate 60; Glucose 101 mg/dL (65-110); Lipase 55 U/L (23-300); Potassium 3.7 mmol/L (3.4-5.0); Sodium 138 mmol/L (137-145); Total Protein 7.5 g/dL (6.3-8.2)
[2025-04-12 22:13] LABS: Troponin I < 0.012 ng/mL (0.000-0.034)
--- NOTE | 2025-04-13 00:24 | ECG_ITS ---
Test Date: 2025-04-13 00:27:43 Measurements Intervals [place] Rate: 65 P: 64 [place]: 174 QRS: 92 QRSD: 112 T: 61 QT: 407 QTc: 426 Interpretive Statements SINUS RHYTHM RIGHT AXIS DEVIATION INCOMPLETE RIGHT BUNDLE BRANCH BLOCK MINIMAL Q WAVES- INFERIOR LEADS POSSIBLE ANTERIOR MYOCARDIAL INFARCTION , OF INDETERMINATE AGE ABNORMAL ECG Compared to ECG 04/12/2025 21:19:03 HEART RATE HAS DECREASED Electronically Signed On 04-13-2025 08:17:37 CDT by Deyvi Mcknight D.O.
[2025-04-13 01:17] LABS: Troponin I < 0.012 ng/mL (0.000-0.034)
[2025-04-13 01:18] VITALS: PULSE 68
[2025-04-13 01:19] VITALS: BP 111/68; PULSE 67; RESP 17; TEMP 36.4; O2SAT 100
--- OUTSIDE RECORDS SUMMARY | 2025-04-13 02:14 | XMS_ITS | Encounter Summary ---
Author Organization [facility] Address [facility] [place] [address] Care Team Providers Care Machine Setter Name Role Phone Yves Jade MD Primary Care Provider [phone] Encounter Details Date Type Department Care Team (Late st Contact Info) Description 04/08/2022 Fitly Message [facility] Medical Group Multispecialty Care - [address] [place] [address] [place], [facility] Provider result Social History Tobacco Use Types [...] Sex Assigned at Female 09/11/2024 1:27 PM STRETCH MACHINE OPERATOR Legal Sex Female 2:02 PM STRETCH MACHINE OPERATOR Gender Identity Female 09/11/2024 1:27 PM STRETCH MACHINE OPERATOR Sexual Orientation Straight 09/11/2024 1: 30 PM STRETCH MACHINE OPERATOR documented as of this encounter Plan of Treatment Not on file documented as of this encounter Visit Diagnoses Not on filedocumented in this encounter Additional Health Concerns Infection Onset Date Last Indicated Resolved Time COVID-19 Rule Out 06/13/2022 06/13/2022 06/13/2022 1:31 PM STRETCH MACHINE OPERATOR COVID-19 Rule Out 06/13/2022 06/13/2022 06/14/2022 3:36 PM STRETCH MACHINE OPERATOR COVID-19 Confirmed 06/13/2022 06/13/2022 12:32 AM STRETCH MACHINE OPERATOR COVID-19 Rule Out 09/23/2022 09/23/2022 09/23/2022 1:13 PM CDT Respiratory Rule Out 10/02/2024 10/02/2024 025 10:22 AM CDT Assessment Noted Time PHQ-9 Depression Total Score: 0 08/17/19 22 9:06 AM STRETCH MACHINE OPERATOR documented as of this encounter Care Teams Machine Setter Relationship Specialty Start Date End Date Yves Jade MD [address] [address] PCP - General INTERNAL MEDICINE 05/25/21 01/28/25 documented as of this encounter
--- OUTSIDE RECORDS SUMMARY | 2025-04-13 02:15 | XMS_ITS | Encounter Summary ---
Author Organization [facility] Address [facility] [place] [address] Care Team Providers Care Text Transcriber Name Role Phone Yves Jade MD Primary Care Provider [phone] Encounter Details Date Type Department Care Team (Latest Contact Info) Description 07/12/2023 Inotremt Message Enc [facility] Medical Group Multispecialty Care - [place] [address] [place] [address] [address] [place] [address] [place] [address] [place] [address] [address] [place], [place] [id number] Letter for school Social History Tobacco Use [...] Sex Assigned at Female 09/11/2024 1:27 PM MATHEMATICS DEPARTMENT CHAIR Legal Sex Female 2:02 PM MATHEMATICS DEPARTMENT CHAIR Gender Identity Female 09/11/2024 1:27 PM MATHEMATICS DEPARTMENT CHAIR Sexual Orientation Straight 09/11/2024 1: 30 PM MATHEMATICS DEPARTMENT CHAIR documented as of this encounter Plan of Treatment Not on file documented as of this encounter Visit Diagnoses Not on filedocumented in this encounter Additional Health Concerns Infection Onset Date Last Indicated Resolved Time Respiratory Rule Out 10/02/2024 10/02/2024 025 10:22 AM CDT Assessment Noted Time PHQ-9 Depression Total Score: 0 08/17/19 22 9:06 AM MATHEMATICS DEPARTMENT CHAIR documented as of this encounter Care Teams Text Transcriber Relationship Specialty Start Date End Date Yves Jade MD [address] [address] PCP - General INTERNAL MEDICINE 05/25/21 01/28/25 documented as of this encounter
--- OUTSIDE RECORDS SUMMARY | 2025-04-13 02:15 | XMS_ITS | Encounter Summary ---
Author Organization [facility] Address [address] [place] [address] Phone Care Team Providers Care Marketing Teacher Name Role Phone Chari Slater MD Unavailable Lurdes Stanford MD Unavailable [phone] Ning Alamo NP Unavailable Bella Shukla Primary Care Pr ovider Srikanth Bray MD Unavailable [phone] Encounter Details Date Type Department Care Team (Late st Contact Info) Description 02/26/2025 Results Follow-Up [facility] [address] [place] [phone] Norma Padilla PA [address] [place] [address] Creatine kinase (CK), total, Erythrocyte sedimentation rate, CBC with auto differential, Additional followed-up results: 8 Social History Tobacco Use Types Packs/Day Years Used Date Smoking Tobacco: Never Smokeless Tobacco: Never [facility] Utilities Answer Date Recorded In the [...] often do you attend chur ch or spiritism services? Never 01/19/2024 Do you belong to [...] staff should administer the PHQ-9) 0 03/20/2024 [facility] Health - Occupational Stress Questionnaire Answer Date [...] place to sleep or slept in a fdc (including now)? No 10/02/2022 PHQ-9 Answer Date [...] any time in the past 12 m [facility], were you homeless or living in a fdc (including now)? No 01/19/2024 Personal Safety Answer Date Recorded Have you ever been in or are you currently in a harmful physical or emotional relationship or is someone making you feel afraid or unsafe? Denies 06/13/2024 Comments No Sex and Gender Information Value Date Recorded Sex Assigned at Not on file Legal Sex Female 10:26 PM MASTER POLICE DETECTIVE Gender Identity Not on file Sexual Orientation [...] on filedocumented in this encounter Care Teams Marketing Teacher Relationship Specialty Start Date End Date ShayyBella kathleen DEVAUGHN Wong [address] [place] [address] PCP - General Physician Automatic Car Wash Attendant 02/24/25 Chari Slater MD [facility] [address] Giordano [facility] [address] [place] [address] Consulting Physician Obstetrics and Gynecology 12/12/23 Lurdes Stanford MD [address] [place] [address] Surgeon Medical Oncology 12/12/23 [place] [address] Nurse Practitioner Family Medicine 11/29/24 Srikanth Bray MD [address] [place] [address] Consulting Physician Rheumatology 04/11/25 documented as of this encounter
--- OUTSIDE RECORDS SUMMARY | 2025-04-13 02:15 | XMS_ITS | Encounter Summary ---
Author Organization [facility] Address [facility] [place] [address] Care Team Providers Care Tax Processor Name Role Phone Yves Jade MD Primary Care Provider Encounter Details Date Type Department Care Team (Late st Contact Info) Description 06/15/2022 Sungevityt Message Enc [facility] Medical Group Multispecialty Care - [place] [address] [place] [address] [address] [place] [address] [place] [address] [place] [address] [address] [place] [address] Covid Social History Tobacco Use [...] Sex Assigned at Female 09/11/2024 1:27 PM DERMATOLOGY TEACHER Legal Sex Female 2:02 PM DERMATOLOGY TEACHER Gender Identity Female 09/11/2024 1:27 PM DERMATOLOGY TEACHER Sexual Orientation Straight 09/11/2024 1: 30 PM DERMATOLOGY TEACHER COVID-19 Exposure Response Date Recorded In the last 10 days, have yo u been in contact with someone who was confirmed or suspected to have Coronavirus/COVID-19? No / Unsure 06/13/2022 11:43 AM DERMATOLOGY TEACHER documented as of this encounter Plan of Treatment Not on file documented as of this encounter Visit Diagnoses Not on filedocumented in this encounter Additional Health Concerns Infection Onset Date Last Indicated Resolved Time COVID-19 Confirmed 06/13/2022 06/13/2022 12:32 AM DERMATOLOGY TEACHER COVID-19 Rule Out 09/23/2022 09/23/2022 09/23/2022 1:13 PM CDT Respiratory Rule Out 10/02/2024 10/02/2024 025 10:22 AM CDT Assessment Noted Time PHQ-9 Depression Total Score: 0 08/17/19 22 9:06 AM DERMATOLOGY TEACHER documented as of this encounter Care Teams Tax Processor Relationship Specialty Start Date End Date Yves Jade MD [address] [address] PCP - General INTERNAL MEDICINE 05/25/21 01/28/25 documented as of this encounter
--- OUTSIDE RECORDS SUMMARY | 2025-04-13 02:15 | XMS_ITS | Encounter Summary ---
Author Organization [facility] Address [facility] [place] [address] Care Team Providers Care Biomechanical Engineer Name Role Phone Yves Jade MD Primary Care Provider [phone] Encounter Details Date Type Department Care Team (Late st Contact Info) Description 09/14/2022 GoldenGate Software Message Enc [facility] Medical Group Multispecialty Care - [address] [place] [address] Find That File[place], [facility] Provider lab results Social History Tobacco Use Types Packs/Day Years Used Date Smoking Tobacco: Never Smokeless Tobacco: Never Comments:counseled by Dr Temitope ivllanueva Alcohol Use Standard Drinks/Week Comments Yes 0 (1 standard drink = 0.6 oz pur e alcohol) socially PHQ-2 Answer Date Recorded Patient Health Questionnaire-2 Score 0 09/12/2022 Comments Yes Sex and Gender Information Value Date Recorded Sex Assigned at Female 09/11/2024 1:27 PM CUTTER INSPECTOR Legal Sex Female 2:02 PM CUTTER INSPECTOR Gender Identity Female 09/11/2024 1:27 PM CUTTER INSPECTOR Sexual Orientation Straight 09/11/2024 1: 30 PM CUTTER INSPECTOR COVID-19 Exposure Response Date Recorded In the last 10 days, have yo u been in contact with someone who was confirmed or suspected to have Coronavirus/COVID-19? No / Unsure 09/12/2022 3:39 PM CUTTER INSPECTOR documented as of this encounter Plan of [...] Total Score: 0 08/17/19 22 9:06 AM CUTTER INSPECTOR documented as of this encounter Care Teams Biomechanical Engineer Relationship Specialty Start Date End Date Yves Jade MD [address] [address] PCP - General INTERNAL MEDICINE 05/25/21 01/28/25 documented as of this encounter
--- OUTSIDE RECORDS SUMMARY | 2025-04-13 02:15 | XMS_ITS | Encounter Summary ---
Author Organization [facility] Address [facility] [place] [address] Care Team Providers Care Guard Driver Name Role Phone Yves Jade MD Primary Care Provider [phone] Encounter Details Date Type Department Care Team (Latest Contact Info) Description 10/03/2022 382 Communicationst Message Enc [facility] Medical Group Multispecialty Care - [place] [address] [place] [address] [address] [place] [address] [place] [address] [place] [address] [address] [place] [address] Congratulations! Social History Tobacco Use [...] Sex Assigned at Female 09/11/2024 1:27 PM OYSTER CULTURIST Legal Sex Female 2:02 PM OYSTER CULTURIST Gender Identity Female 09/11/2024 1:27 PM OYSTER CULTURIST Sexual Orientation Straight 09/11/2024 1: 30 PM OYSTER CULTURIST COVID-19 Exposure Response Date Recorded In the [...] Total Score: 0 08/17/19 22 9:06 AM OYSTER CULTURIST documented as of this encounter Care Teams Guard Driver Relationship Specialty Start Date End Date Yves Jade MD [address] [address] PCP - General INTERNAL MEDICINE 05/25/21 01/28/25 documented as of this encounter
--- OUTSIDE RECORDS SUMMARY | 2025-04-13 02:15 | XMS_ITS | Encounter Summary ---
Author Organization [facility] Address [facility] [place] [address] Care Team Providers Care Cat Skinner Name Role Phone Yves Jade MD Primary Care Provider [phone] Encounter Details Date Type Department Care Team (Late st Contact Info) Description 02/08/2022 IKANO Communicationst Message Enc [facility] Medical Group Multispecialty Care - [place] [address] [place] [address] [address] [place] [address] [place] [address] [place] [address] [address] [place] [address] Social History Tobacco Use Types [...] Sex Assigned at Female 09/11/2024 1:27 PM BLENDER SNUFF Legal Sex Female 2:02 PM BLENDER SNUFF Gender Identity Female 09/11/2024 1:27 PM BLENDER SNUFF Sexual Orientation Straight 09/11/2024 1: 30 PM BLENDER SNUFF COVID-19 Exposure Response Date Recorded In the [...] Rule Out 06/13/2022 06/13/2022 06/13/2022 1:31 PM BLENDER SNUFF COVID-19 Rule Out 06/13/2022 06/13/2022 06/14/2022 3:36 PM BLENDER SNUFF COVID-19 Confirmed 06/13/2022 06/13/2022 12:32 AM BLENDER SNUFF COVID-19 Rule Out 09/23/2022 09/23/2022 09/23/2022 1:13 PM CDT Respiratory Rule Out 10/02/2024 10/02/2024 025 10:22 AM CDT Assessment Noted Time PHQ-9 Depression Total Score: 0 08/17/19 22 9:06 AM BLENDER SNUFF documented as of this encounter Care Teams Cat Skinner Relationship Specialty Start Date End Date Yves Jade MD [address] [address] PCP - General INTERNAL MEDICINE 05/25/21 01/28/25 documented as of this encounter
--- OUTSIDE RECORDS SUMMARY | 2025-04-13 02:15 | XMS_ITS | Clinical Summary ---
Author Organization [facility] [employer] Address [address] [place] [address] Care Team Providers Care Raschel Knitting Machine Operator Name Role Phone Unavailable Primary Care Provider Unavailabl e Source Comments [facility] [employer],non-owned Affiliates and Associated Physician Practices is amultiple site organization consisting of ambulatory clinics and hospital sitesin [place], [place], [place] and [place]. This disclosure is being madepursuant to the Care Everywhere program and may not contain all information available regarding this patient. Last updated 18.[facility] [employer] Allergies Active Allergy Reactions Criticality Noted Date [...] on file Legal Sex Female 3:39 PM AUTOMOBILE BODY REPAIR SUPERVISOR Gender Identity Not on file Sexual Orientation Not on file Last Filed Vital Signs Vital Sign Reading Time Taken Comments Blood Pressure 110/60 06/19/2020 5:01 PM AUTOMOBILE BODY REPAIR SUPERVISOR Pulse 70 08/07/2020 9:17 AM AUTOMOBILE BODY REPAIR SUPERVISOR Temperature 36.8 C (98.3 F) 08/07/2020 9:17 AM AUTOMOBILE BODY REPAIR SUPERVISOR Respiratory Rate 20 08/07/2020 9:17 AM AUTOMOBILE BODY REPAIR SUPERVISOR Oxygen Saturation 97% 06/19/2020 5:01 PM AUTOMOBILE BODY REPAIR SUPERVISOR Inhaled Oxygen Concentration - - Weight 63.5 kg (140 lb) 08/07/2020 9:17 AM AUTOMOBILE BODY REPAIR SUPERVISOR Height 175.3 cm (5' 9) 06/19/2020 5:01 PM AUTOMOBILE BODY REPAIR SUPERVISOR Body Mass Index 20.67 06/19/2020 5:01 PM AUTOMOBILE BODY REPAIR SUPERVISOR Plan of Treatment Health Maintenance Due Date [...]
--- OUTSIDE RECORDS SUMMARY | 2025-04-13 02:15 | XMS_ITS | Encounter Summary ---
Author Organization [facility] Address [facility] [place] [address] Care Team Providers Care Airport Duty Manager Name Role Phone Yves Jade MD Primary Care Provider [phone] Encounter Details Date Type Department Care Team (Late st Contact Info) Description 04/08/2022 WDFA Marketingt Message Enc [facility] Multispecialty [facility] [place] [address] [place] [address] [address] [place] [address] [place] [address] [place] [address] [address] [place] [address] OB Social History Tobacco Use [...] Sex Assigned at Female 09/11/2024 1:27 PM SYSTEM DEVELOPMENT ENGINEER Legal Sex Female 2:02 PM SYSTEM DEVELOPMENT ENGINEER Gender Identity Female 09/11/2024 1:27 PM SYSTEM DEVELOPMENT ENGINEER Sexual Orientation Straight 09/11/2024 1: 30 PM SYSTEM DEVELOPMENT ENGINEER documented as of this encounter Plan of Treatment Not on file documented as of this encounter Visit Diagnoses Not on filedocumented in this encounter Additional Health Concerns Infection Onset Date Last Indicated Resolved Time COVID-19 Rule Out 06/13/2022 06/13/2022 06/13/2022 1:31 PM SYSTEM DEVELOPMENT ENGINEER COVID-19 Rule Out 06/13/2022 06/13/2022 06/14/2022 3:36 PM SYSTEM DEVELOPMENT ENGINEER COVID-19 Confirmed 06/13/2022 06/13/2022 12:32 AM SYSTEM DEVELOPMENT ENGINEER COVID-19 Rule Out 09/23/2022 09/23/2022 09/23/2022 1:13 PM CDT Respiratory Rule Out 10/02/2024 10/02/2024 025 10:22 AM CDT Assessment Noted Time PHQ-9 Depression Total Score: 0 08/17/19 9:06 AM SYSTEM DEVELOPMENT ENGINEER documented as of this encounter Care Teams Airport Duty Manager Relationship Specialty Start Date End Date Yves Jade MD [facility] [address] PCP - General INTERNAL MEDICINE 05/25/21 01/28/25 documented as of this encounter
--- OUTSIDE RECORDS SUMMARY | 2025-04-13 02:15 | XMS_ITS | Encounter Summary ---
Author Organization [facility] Address [facility] [place] [address] Care Team Providers Care Redevelopment Specialist Name Role Phone Yves Jade MD Primary Care Provider [phone] Encounter Details Date Type Department Care Team (Late st Contact Info) Description 11/28/2024 Mfuset Message Enc [facility] Medical Group Multispecialty Care - [place] [address] [facility] [address] [facility] [address] [place] [address] [place] [address] [place] [address] [address] [place], [place] [id number] [facility] low Social History Tobacco Use Types [...] Sex Assigned at Female 09/11/2024 1:27 PM RISK MANAGEMENT MANAGER Legal Sex Female 2:02 PM RISK MANAGEMENT MANAGER Gender Identity Female 09/11/2024 1:27 PM RISK MANAGEMENT MANAGER Sexual Orientation Straight 09/11/2024 1: 30 PM RISK MANAGEMENT MANAGER documented as of this encounter Plan of Treatment Not on file documented as of this encounter Visit Diagnoses Not on filedocumented in this encounter Additional Health Concerns Assessment Noted Time PHQ-9 Depression Total Score: 2 10/03/19 25 9:41 AM CDT documented as of this encounter Care Teams Redevelopment Specialist Relationship Specialty Start Date End Date Yves Jade MD [address] [facility] [address] [place] [address] PCP - General INTERNAL MEDICINE 05/25/21 01/28/25 documented as of this encounter
--- OUTSIDE RECORDS SUMMARY | 2025-04-13 02:15 | XMS_ITS | Clinical Summary ---
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 [place] [address] [facility] [address] [place] [address] Yves Jade MD Medication 01/27/2025 Telephone [facility] [place] [address] [facility] [address] [place] [address] Yves Jade MD Record Request 01/16/2025 Telephone [facility] [place] [address] [facility] [address] [place] [address] Yves Jade MD Referral 01/13/2025 Orders Only [facility] [place] [address] [facility] [address] [place] [address] Yves Jade MD 01/13/2025 MyChart Message [facility] [place] [address] [facility] [address] [place] [address] Yves Jade MD Urgent from Last 3 [...] Sex Assigned at Female 09/11/2024 1:27 PM LIGHTING DIRECTOR Legal Sex Female 2:02 PM LIGHTING DIRECTOR Gender Identity Female 09/11/2024 1:27 PM LIGHTING DIRECTOR Sexual Orientation Straight 09/11/2024 1: 30 PM LIGHTING DIRECTOR Last Filed Vital Signs Vital Sign Reading [...] 05/05/2015 Hepatitis C Completed 05/25/2021 PHQ-2 (Physician [place]) Completed 10/02/2024 Meningococcal B Vaccine Aged Out [...] HEPATITIS C ANTIBODY Routine 05/25/2021 9:08 AM LIGHTING DIRECTOR Annual physical exam Encounter for medical examination to establish care General medical exam Encounter for hepatitis C screening test for low risk patient from Last 3 Months or Most Recently Relevant to Health Maintenance Results * (ABNORMAL) ANTINUCLEAR ANTIBODY WI RFX (01/13/2025 12:52 PM CDT) ANASTASIA COMMENT POSITIVE (A) NEGATIVE [employer] [facility] Comment: A positive ANASTASIA Multiplex indicates the presence of detectable antibodies to one or more of the component analytes consisting of double stranded DNA (dsDNA), chromatin, ribonucleoprotein (SCRAP SORTER), Pena/SCRAP SORTER (Sm/SCRAP SORTER), Pena (Sm), SS-A, SS-B, Ana-1, centromere B, Scl-70 and ribosomal P. Further laboratory testing may be considered if clinically indicated. For additional information, please refer to http://education.Liquor.com/faq/VDG445 (This link is being provided for informational/ educational purposes only.) DNA (DS) ANTIBODY <1 IU/mL [employer] [facility] Comment: IU/mL Interpretation < or = 4 Negative 5-9 Indeterminate > or = 10 Positive 01/13/2025 12:5 2 PM CDT 01/13/2025 12:54 PM CDT Narrative Resulting Agency Comment Performing Organization Information: Site ID: [id number] Name: [facility] Address: [address] [place] [address] Director: Lynda Cardona MD Yves Jade MD LABORATORY Final Result [employer] [facility] Gnip [address] [address], * SED RATE, ERYTHROCYTE (ESR) (01/13/2025 12:52 PM CDT) SED RATE 2 < OR = 20 mm/h [facility] [place] 01/13/2025 12:5 2 PM CDT 01/13/2025 12:54 PM CDT Narrative Resulting Agency Comment Performing Organization Information: Site ID: [place] Name: [facility] Address: [address] [address] Director: Lynda Cardona Yves Jade MD LABORATORY Final Result Performing Organization Address [facility]/ZIP Co de Phone Number [employer] - [place] [employer] [address], * C-REACTIVE PROTEIN (01/13/2025 12:52 PM CDT) C-REACTIVE PROTEIN <5.0 <8.0 mg/L [employer] [place] 01/13/2025 12:5 2 PM CDT 01/13/2025 12:54 PM CDT Narrative Resulting Agency Comment Performing Organization Information: Site ID: Name: [facility] Address: [address] [place] [phone] Director: Lynda Cardona Yves Jade MD LABORATORY Final Result Performing Organization Address [facility] Co de Phone Number [employer] - [facility] [employer] [address], * FACTOR VIII, VW FACTOR ANTIGEN (01/13/2025 12:52 PM CDT) VON [place] FACTOR ANTIGEN 59 50 - [phone] % [employer] [place] 01/13/2025 12:5 2 PM CDT 01/13/2025 12:54 PM CDT Narrative Resulting Agency Comment Performing Organization Information: Site ID: [id number] Name: [employer] Address: [address] [place] [address] [address] [place], [place] Director: Kirby Delgado M.D.,PhD Yves Jade MD LABORATORY Final Result Performing Organization Address City/[facility] Co de Phone Number [employer] - [place] [employer] [address] , * OUTSIDE CYTOPATH CERV/VAG INTERPRET (PAP) (06/22/2021) 06/22/2021 Narrative 06/22/2021 Ordered by an unspecified provider. us Documents Scanned SCANNING Final Result * HEPATITIS C ANTIBODY (05/25/2021 9:08 AM LIGHTING DIRECTOR) HEPATITIS C AB NON-REACTI VE NON-REACT EFRAÍN 05/25/2021 7:[address] [facility] Comment: ANTIBODIES TO HCV NOT DETECTED. DOES NOT EXCLUDE THE POSSIBILITY OF EXPOSURE TO HCV. 05/25/2021 9:08 AM LIGHTING DIRECTOR Yves Jade MD LABORATORY Final Result [facility] [address] [place] [address], [id number] from Last 3 Months or Most Recently Relevant to Health Maintenance Insurance [facility] [place] [address]
--- OUTSIDE RECORDS SUMMARY | 2025-04-13 02:15 | XMS_ITS | Encounter Summary ---
Author Organization [facility] Address [address] [place] [address] Care Team Providers Care Costume Draper Name Role Phone Yves Jade MD Primary Care Provider [phone] Reason for Visit * Reason Onset Date Comments Medication Information 09/19/2022 Encounter Details Date Type Department Care Team (Late st Contact Info) Description 09/19/2022 MyChart Message Enc [facility] Multispecialty Care [place] [address] [address] [place] [address] Yves Jade MD [address] [place] [address] [address] [place] [address] Congestion Social History Tobacco Use [...] Sex Assigned at Female 09/11/2024 1:27 PM JOB SETTER HONING Legal Sex Female 2:02 PM JOB SETTER HONING Gender Identity Female 09/11/2024 1:27 PM JOB SETTER HONING Sexual Orientation Straight 09/11/2024 1: 30 PM JOB SETTER HONING COVID-19 Exposure Response Date Recorded In the last 10 days, have yo u been in contact with someone who was confirmed or suspected to have Coronavirus/COVID-19? No / Unsure 09/12/2022 3:39 PM JOB SETTER HONING documented as of this encounter Progress Notes [...] Total Score: 0 08/17/19 22 9:06 AM JOB SETTER HONING documented as of this encounter Care Teams Costume Draper Relationship Specialty Start Date End Date Yves Jade MD [address] [address] PCP - General INTERNAL MEDICINE 05/25/21 01/28/25 documented as of this encounter
--- OUTSIDE RECORDS SUMMARY | 2025-04-13 02:15 | XMS_ITS | Encounter Summary ---
Author Organization [facility] Address [facility] [place] [address] Care Team Providers Care Senior Physician Name Role Phone Yves Jade MD Primary Care Provider [phone] Encounter Details Date Type Department Care Team (Latest Contact Info) Description 09/16/2024 VoIP Logict Message Enc [facility] Multispecialty Care - [place] [address] [place] [address] [address] [place] [address] [place] [address] [place] [address] [address] [place], [place] [id number] Blood test results Social History Tobacco Use [...] Sex Assigned at Female 09/11/2024 1:27 PM CONTROL INTEGRATION ENGINEER Legal Sex Female 2:02 PM CONTROL INTEGRATION ENGINEER Gender Identity Female 09/11/2024 1:27 PM CONTROL INTEGRATION ENGINEER Sexual Orientation Straight 09/11/2024 1: 30 PM CONTROL INTEGRATION ENGINEER documented as of this encounter Plan of Treatment Not on file documented as of this encounter Visit Diagnoses Not on filedocumented in this encounter Additional Health Concerns Infection Onset Date Last Indicated Resolved Time Respiratory Rule Out 10/02/2024 10/02/2024 025 10:22 AM CDT Assessment Noted Time PHQ-9 Depression Total Score: 7 09/12/19 25 2:21 PM CONTROL INTEGRATION ENGINEER documented as of this encounter Care Teams Senior Physician Relationship Specialty Start Date End Date Yves Jade MD [address] [address] PCP - General INTERNAL MEDICINE 05/25/21 01/28/25 documented as of this encounter
--- OUTSIDE RECORDS SUMMARY | 2025-04-13 02:15 | XMS_ITS | Clinical Summary ---
Author Organization [facility] Address [address] [place] [address] Care Team Providers Care Shift Supervisor Melting Name Role Phone Chari Slater MD Unavailable Lurdes Stanford MD Unavailable [phone] Ning Alamo NP Unavailable Bella Shukla Primary Care Pr ovider Srikanth Bray MD Unavailable [phone] Allergies Active Allergy Reactions Criticality Noted Date Comments Amoxicillin Hives Medium 01/06/2019 Penicillins Hives Medium 01/06/2019 Medications ergocalciferol (VITAMIN D) 50,000 unit capsuleIndicati ons:Vitamin D deficiency Take 1 capsule (50,000 Units total) by mouth once a week 12 capsule 4 11/17/2023 Active omega-3 fatty acids-fish oil 300-1,000 mg capsule Take 2 capsules (2 g total) by mouth daily Active acetaminophen (TYLENOL) 500 mg tablet Take 1 tablet (500 mg total) by mouth every 6 (six) hours as needed for pain 30 tablet 03/27/2024 Active hydroxychloroqu ine (PLAQUENIL) 200 mg tablet Take 1 tablet (200 mg total) by mouth daily 90 tablet 03/14/2025 03/14/20 26 Active Active Problems Problem Noted Date Diagnosed [...] fall asleep. She goes to school, works registered phlebotomist part time and has a 2 and 6 yo. [...] encounter 03/26/2024 12/16/2024 Paragard placed 09/30/22 11/16/2022 06/0 03/2025 care following vaginal delivery 09/29/2022 11/16/2022 Overview [...] ABORH A Positive 04/08/2022 IDCOOMB Negative 04/08/2022 [id number] Nonreactive 07/07/2022 LABRPR Nonreactive 07/07/2022 RUBELIGG Reactive [...] Description 04/11/2025 9:00 AM CDT Office Visit [address] [address] Norma Padilla PA Arthralgia, unspecified joint (Primary Dx); Encounter for long-term (current) use of medications; Chronic fatigue 04/11/[address] [address] Norma Padilla PA 04/11/[address] [address] Norma Padilla PA 03/14/2025 10:00 AM CDT Office Visit [address] [address] Norma Padilla PA Arthralgia, unspecified joint (Primary Dx); Encounter for long-term (current) use of medications; KERR (dyspnea on exertion) 02/28/2025 12:49 PM CDT - 02/28/2025 11:59 PM CDT Hospital Encounter [address] [address] Arthralgia, unspecified joint; ANASTASIA positive; Encounter for long-term (current) use of medications Discharge Disposition: Discharge to home or self care 02/26/2025 Results Follow-Up [address] [address] Norma Padilla PA Creatine kinase (CK), total, Erythrocyte sedimentation rate, CBC with auto differential, Additional followed-up results: 8 02/25/2025 12:00 PM CDT - 02/25/2025 11:59 PM CDT Hospital Encounter [facility] [address] [place] [address] Arthralgia, unspecified joint; ANASTASIA positive; Encounter for long-term (current) use of medications; Neck pain; Low back pain at multiple sites Discharge Disposition: Discharge to home or self care 02/24/2025 10:00 AM CDT Office Visit [facility] [address] [place] [address] Norma Padilla PA Arthralgia, unspecified joint (Primary [...] Maternal Grandfather Breast cancer Maternal Grandmother Aminta Doris No Known Problems Mother Breast cancer Other Great Grandmother age unkno wn Early Paternal Grandfather Gerardo Bragg Heart attack Paternal Grandfather Gerardo Bragg Heart attack Paternal Grandmother Relation Name Status Comments Father Aravind Bragg Alive Maternal Grandfather Maternal Grandmother Aminta George Mother Alive Other Great Grandmother Paternal Grandfather Gerardo Harrison Paternal Grandmother Social History Tobacco Use Types Packs/Day Years Used Date Smoking Tobacco: Never Smokeless Tobacco: Never Tobacco Cessation:Counseling Given: Not Answered [facility] Utilities Answer Date Recorded In the past 12 months has th e [place], gas, oil, or water [place] threatened to shut off services in your [...] often do you attend chur ch or nondenominational services? Never 01/19/2024 Do you belong to any clubs o r organizations such as adventism groups, unions, fraternal or athletic groups, or [...] staff should administer the PHQ-9) 0 03/20/2024 [facility] - Occupational Stress Questionnaire Answer Date [...] place to sleep or slept in a mcfp (including now)? No 10/02/2022 PHQ-9 Answer Date [...] any time in the past 12 [facility], were you homeless or living in a mcfp (including now)? No 01/19/2024 Personal Safety Answer Date Recorded Have you ever been in or are you currently in a harmful physical or emotional relationship or is someone making you feel afraid or unsafe? Denies 06/13/2024 Comments No Sex and Gender Information Value Date Recorded Sex Assigned at Not on file Legal Sex Female 10:26 PM REGULATORY SERVICES CONSULTANT Gender Identity Not on file Sexual Orientation Not on file Obstetrics History Para Term AB IAB SAB Ectopic Multiple Livin g Live Births 2 2 2 0 2 2 Date Outcome GA Total Labor Labor/2nd/3rd Weight Sex Type Anes PTL Angie A1 A5 Name Clin 2018 Term 39w 0d 4.026 kg (8 lb 14 oz) M Vag-S pont None Livin g Complications:None Delivery Location:[facility] 2022 Term 39w 0d 11h 01m 10h 31m/0h 15m/0h 15m 3.8 kg (8 lb 6 oz) F Vag-S pont Epidur al N Livin g 9 9 PEACH ,GIRL MOON wheeler, Nydia Appiah MD Complications:None Delivery Location:[facility] ([facility] 58LD) Comments G1--delivered at [facility]. P ushed 90min. Had an episiotomy---was prolonged [...] HPV Vaccines (3 - 3-dose series) 04/13/2022 12/08/19 22, 10/12/2021 Cervical Cancer Screening 12/11/2024 12/12/2023 Covid-19 [...] ORDERAB LES Final Result Performing Organization Address City/[facility]/ZIP Co de Phone Number [facility] [address] [place] [address] * C4 complement (04/11/2025 9:53 AM CDT) Complement component C4C 21 15 - 57 mg/dL [facility] Blood 04/11/2025 9:53 AM CDT 04/11/2025 9:54 AM CDT Norma CANTOR LAB BLOOD ORDERAB LES Final Result [facility] [address] [place] [address] * Urinalysis reflex to microscopic (04/11/2025 9:53 AM CDT) Pathologist [facility] Color, ur YELLOW YELLOW [facility] [...] 9:54 AM CDT us Norma CANTOR LAB URINE ORDERAB LES Final Result [facility] [address] [place] [address] * (ABNORMAL) CBC with auto differential (04/11/2025 9:53 AM CDT) [facility] WBC 5.7 3.8 - 10.8 Thousand/u L [...] BLOOD ORDERAB LES Final Result [facility] [address] [place] [address] * (ABNORMAL) Protein / creatinine ratio, urine, [...] 9:54 AM CDT us Norma CANTOR LAB URINE ORDERAB LES Final Result Performing Organization Address [facility] de Phone Number [facility] [address] [place] [address] * Erythrocyte sedimentation rate (04/11/2025 9:53 AM CDT) Erythrocyte sedimentation rate 6 < OR = 20 mm/h [facility] Blood 04/11/2025 9:53 AM CDT 04/11/2025 9:54 AM CDT us Norma CANTOR LAB BLOOD ORDERAB LES Final Result Performing Organization Address [facility] de Phone Number [facility] [address] [place] [address] * C3 complement (04/11/2025 9:53 AM CDT) Complement component C3C 146 83 - 193 mg/dL [facility] Blood 04/11/2025 9:53 AM CDT 04/11/2025 9:54 AM CDT us Norma CANTOR LAB BLOOD ORDERAB LES Final Result Performing Organization Address [facility] de Phone Number [facility] [address] [place] [address] * CRP (acute phase) (04/11/2025 9:53 AM CDT) C-RP <3.0 <8.0 mg/L [facility] Blood 04/11/2025 9:53 AM CDT 04/11/2025 9:54 AM CDT us Norma CANTOR LAB BLOOD ORDERAB LES Final Result [facility] [address] [place] [address] * Comprehensive metabolic panel (04/11/2025 9:53 AM CDT) Glucose 84 65 - 99 mg/dL [facility] [...] CANTOR LAB BLOOD ORDERAB LES Final Result [facility] [address] [facility] [place] [address] * US Hand Complete (02/28/2025 1:17 PM CDT) Anatomical Region Laterality Modality Hand N/A Ultrasound us Norma CNATOR IMG US PROCEDURES Final Result * XR [...] 3:31 PM - Electronically signed by Elvis Guzmna M.D. MF: BRONWYN Report ID: [id number] Reading Location: [id number] Procedure Note Elvis Guzamn MD - 02/26/2025 EXAM DESCRIPTION: 1. XR [...] Elvis Guzman M.D. MF: BRONWYN Report ID: [id number] Reading Location: [place] [address] Norma CANTOR IMG XR PROCEDURES Final Result [...] Elvis Guzman M.D. MF: BRONWYN Report ID: [id number] Reading Location: [id number] Procedure Note Elvis Guzman MD - 02/26/2025 [...] Elvis Guzman M.D. MF: BRONWYN Report ID: [id number] Reading Location: [id number] us Norma Tanya CANTOR IMG XR PROCEDURES Final Result * [...] Elvis Guzman M.D. MF: BRONWYN Report ID: [id number] Reading Location: [id number] Procedure Note Elvis Guzman MD - 02/26/2025 [...] Elvis Guzman M.D. MF: BRONWYN Report ID: [id number] Reading Location: [id number] Norma CANTOR IMG XR PROCEDURES Final Result [...] Elvis Guzman M.D. MF: BRONWYN Report ID: [id number] Reading Location: [id number] Procedure Note Elvis Guzman MD - 02/26/2025 [...] Elvis Guzman M.D. MF: BRONWYN Report ID: [id number] Reading Location: [id number] Norma CANTOR IMG XR PROCEDURES Final Result [...] Elvis Guzman M.D. MF: BRONWYN Report ID: [id number] Reading Location: [id number] Procedure Note Elvis Guzman MD - 02/26/2025 [...] Elvis Guzman M.D. MF: BRONWYN Report ID: [id number] Reading Location: [id number] Srikanth Bray MD IMG XR PROCEDURES Final [...] Elvis Guzman M.D. MF: BRONWYN Report ID: [id number] Reading Location: [address] Note Elvis Guzman MD - 02/26/2025 EXAM [...] Elvis Guzman M.D. MF: BRONWYN Report ID: [id number] Reading Location: [id number] [facility] Elvis Bray MD IMG XR PROCEDURES [...] by Gagan Johnson M.D. JR: Report ID: [id number] Reading Location: [id number] Procedure Note Gagan Johnson MD - 03/02/2025 [...] by Gagan Johnson M.D. JR: Report ID: [id number] Reading Location: [place] [address] Norma CANTOR IMG XR PROCEDURES Final Result * REFLEXIVE URINE CULTURE (02/24/2025 11:26 AM CDT) Urine culture [facility] Comment:CULTURE INDICATED - RESULTS TO FOLLOW 02/24/2025 11:2 6 AM CDT 02/24/2025 11:27 AM CDT Norma CANTOR LAB MICROBIOLOGY - GENERAL ORDERABLES Final Result [facility] [address] [place] [address] * (ABNORMAL) Urinalysis reflex to microscopic and culture Urine (02/24/2025 11:26 AM CDT) Color, ur YELLOW YELLOW [facility] Appearance, ur CLEAR CLEAR [facility] Specific gravity 1.008 1.001 - 1.035 [facility] pH, ur 7.5 5.0 - 8.0 [facility] Glucose, ur NEGATIVE NEGATIVE [facility] Bilirubin, ur NEGATIVE NEGATIVE [facility] Ketones, ur NEGATIVE NEGATIVE [facility] Blood, ur NEGATIVE NEGATIVE [facility] Protein, ur, quant NEGATIVE NEGATIVE [facility] Nitrites, ur NEGATIVE NEGATIVE [facility] Leukocyte esterase, ur TRACE(A) NEGATIVE [facility] WBC, ur 0-5 < OR = 5 /HPF [facility] RBC, ur NONE SEEN < OR = 2 /HPF [facility] Epithelial cells, squamous, ur NONE SEEN < OR = 5 /HPF [facility] Bacteria, ur, quant MODERATE(A) NONE SEEN /HPF [facility] Hyaline cast NONE SEEN NONE SEEN /LPF [facility] Note [facility] Comment: This urine was analyzed for the presence of WBC, RBC, bacteria, casts, and other formed elements. Only those elements seen were reported. Urine 02/24/2025 11:2 6 AM CDT 02/24/2025 11:27 AM CDT us Norma CANTOR LAB MICROBIOLOGY - GENERAL ORDERABLES Final Result [facility] [address] [place] [address] * CBC with auto differential (02/24/2025 11:26 [...] ORDERAB LES Final Result Performing Organization Address [facility]/ZIP Co de Phone Number [facility] [address] [place] [address] * Vitamin D 25 hydroxy (02/24/2025 11:26 AM CDT) Pathologist [facility] Vitamin D 25-OH 56 30 - 100 ng/mL [facility] Comment: Vitamin D Status 25-OH Vitamin D: Deficiency: <20 ng/mL Insufficiency: 20 - 29 ng/mL Optimal: > or = 30 ng/mL For 25-OH Vitamin D testing on patients on D2-supplementation and patients for whom quantitation of D2 and D3 fractions is required, the Quest[facility](TM) 25-OH VIT D, (D2,D3), LC/MS/MS is recommended: order code 09103 (patients >2yrs). See Note 1 Note 1 For additional information, please refer to http://education.[employer]/faq/UJX149 (This link is being provided for informational/ educational purposes only.) 02/24/2025 11:2 6 AM CDT 02/24/2025 11:27 AM CDT us Norma CANTOR LAB BLOOD ORDERAB LES Final Result Performing Organization Address City/[facility]/ZIP Co de Phone Number [facility] [address] [place] [address] * Erythrocyte sedimentation rate (02/24/2025 11:26 AM CDT) Erythrocyte sedimentation rate 2 < OR = 20 mm/h [facility] Blood 02/24/2025 11:2 6 AM CDT 02/24/2025 11:27 AM CDT Norma CANTOR LAB BLOOD ORDERAB LES Final Result Performing Organization Address [facility] Co de Phone Number [facility] [address] [place] [address] * (ABNORMAL) Urine culture (02/24/2025 11:26 AM CDT) Pathologist [facility] Urine culture (A) [facility] Comment: CULTURE, URINE, ROUTINE Micro Number: [id number] Test Status: Final Specimen Source: Urine Specimen [...] LAB MICROBIOLOGY - GENERAL ORDERABLES Final Result [facility] [address] [place] [address] * CRP (acute phase) (02/24/2025 11:26 AM CDT) C-RP <3.0 <8.0 mg/L [facility] Blood 02/24/2025 11:2 6 AM CDT 02/24/2025 11:27 AM CDT Norma CANTOR LAB BLOOD ORDERAB LES Final Result Performing Organization Address [facility]/ZIP Co de Phone Number [facility] [address] [place] [address] * Creatine kinase (CK), total (02/24/2025 11:26 AM CDT) [facility] CK 36 20 - 239 U/L [facility] Blood 02/24/2025 11:2 6 AM CDT 02/24/2025 11:27 AM CDT Norma CANTOR LAB BLOOD ORDERAB LES Final Result Performing Organization Address [facility] Co de Phone Number [facility] [address] [place] [address] * Comprehensive metabolic panel (02/24/2025 11:26 AM CDT) [facility] Glucose 87 65 - 99 mg/dL [facility] [...] ORDERAB LES Final Result Performing Organization Address City/[facility]/ZIP Co de Phone Number [facility] [address] [place] [address] * avise with anti carp and sle monitor - Miscellaneous Test (02/24/2025 10:06 AM CDT) Miscellaneous Norma CANTOR LAB BLOOD ORDERAB LES Edited Result - Final EXTERNAL LAB * Pap with reflex to High Risk HPV and Genotyping (Cytology Component) (12/12/2023 10:17 AM CDT) Thin prep (Pap test) 12/12/2023 10:17 AM CDT 12/13/2023 2:56 PM CDT Narrative PATHOLOGY [facility] - 12/15/2023 2:38 PM CDT EPIC results best viewed via link to PDF [place] [address] [address] Tele: Charlotte Marie MD - Board Lining Machine Operator CYTOLOGY REPORT Note to Patients: This report [...] the details. Patient Name: MOON BRAGG Address: [address] [place] [address] Gender: F : 1995 (Age: 28) Service: Location: N : [id number] Hospital #: [id number] [place] [facility] Taken: 12/12/2023 Reported: 12/15/2023 Physician(s): Chari [...] MD LAB CYTOLOGY ORDERABL ES Final Result PATHOLOGY [facility] Laboratory Receiving [address] [place] [address] * Hepatitis C antibody Blood (11/16/2023 8:28 [...] last revised on 2019. Testing performed by: [facility], [address] [place] [address]., [address] Blood 11/16/2023 8:28 AM CDT 11/16/2023 12:59 PM CDT us Ning Alamo NP LAB MICROBIOLOGY - GENERAL ORDER LATOSHA Final Result KAYLAH MARRERO (CANISTEO) 1 [facility] Department [place] [address] from Last 3 Months or Most Recently Relevant to Health Maintenance Insurance [facility] CHOICE PLUS [facility] CHOICE PLUS CIG OPEN ACCESS [facility] CHOICE PLUS [facility] CHOICE PLUS Advance Directives For more information, please contact: [phone] * Full Code (Latest Code Status on File) Date Activated Date Inactivated Comments 09/30/2022 12:19 PM 10/02/2022 6:48 PM * Full Code Date Activated Date Inactivated Comments 09/29/2022 11:11 PM 09/30/2022 12:19 PM Full CPR i n case of cardiopulmonary arrest Care Teams Shift Supervisor Melting Relationship Specialty Start Date End Date Bella Shukla PA [address] [place] [address] PCP - General Physician Hair Dresser 02/24/25 Chari Slater MD [address] [place] [address] [address] [place] [address] Consulting Physician Obstetrics and Gynecology 12/12/23 Lurdes Stanford MD [address] [place] [address] Surgeon Medical Oncology 12/12/23 [place] [address] Nurse Practitioner Family Medicine 11/29/24 Srikanth Bray MD [address] [place] [address] Consulting Physician Rheumatology 04/11/25
--- NOTE | 2025-04-13 02:18 | ED_ITS ---
HPI - Chest Pain General Chief Complaint: Chest Pain Stated Complaint: chest pain radiating L arm onset 1 hour Time Seen by Provider: 04/13/25 01:58 Source: patient Mode of arrival: ambulatory Limitations: no limitations History of Present Illness HPI narrative: Patient presents with central chest pain that stareted 1 hour prior to arrival. Described as a tingling and radiating to left arm. She felt shaky and started sweating. No edema. It lasted a few minutes. She thought it might be a panic / anxiety attack. PCP Mallory Marsh who she already has an appointment to see next week. She had taken a marijuana gummy before but this is normal before bed, no change in the type or dose. Currently follows with rheumatology for lupus. No nausea, vomiting, shortness of breath, fever, or chills or cough. Cardiac risk factors HTN: No HLD: Yes (though not on meds) DM: No Obese: No Smoker: No Personal history MA/TIA/CVA: No Fam Hx MA in first degree relative <65yo: No (but yes in second degree relatives) Related Data Home Medications ?Medication ?Instructions ?Recorded ?Confirmed ?Last Taken ?Type vits no.130-ferrous fum 1 tablet PO DAILY 07/0107/21/22 Unknown History 27 mg iron-folic acid 800 mcg tablet ( Vitamin) Allergies Allergy/AdvReac Type Severity Reaction Status Date / Time amoxicillin Allergy Unknown hives, Verified 04/13/25 01:20 fever Penicillins Allergy Unknown hives, Verified 04/13/25 01:20 fever PMFSH Past Medical History Medical History High cholesterol not on meds Lupus Anxiety Thyroid nodule Asthma Exercise-induced Surgical History Surgical History Hx of tonsillectomy Family History Family History Grandparent Family history of malignant neoplasm of breast Grandparent Acute myocardial infarction <65yo Grandparent Acute myocardial infarction <65yo Social History Social History Smoking status: Never smoker Alcohol intake: never Substance use type: marijuana Other substance usage details: gummy QHS Exam 2 Narrative: GENERAL: Well-appearing, well-nourished, and in no acute distress. HEAD: Normocephalic, atraumatic. EYES: Non injected, non icteric ENT: Nares clear, no rhinorrhea or epistaxis. Gross auditory acuity intact. NECK: Supple. No meningismus. CHEST: Speaking in full sentences. No respiratory distress. HEART: Regular rate and rhythm. . ABDOMEN: Soft, nondistended. No rigidity or guarding. Not peritoneal EXTREMITIES: Normal range of motion. No lower extremity edema. SKIN: Warm, dry, no rash. NEURO: No focal deficits. Alert and oriented. Answering questions. Following commands. Normal speech without aphasia or dysarthria. PSYCH: Normal mood and affect. Course Vital Signs Vital signs: Vital Signs Temperature 99.3 F 04/12/25 21:22 Pulse Rate 100 04/12/25 21:22 Respiratory Rate 16 04/12/25 21:22 Blood Pressure 129/69 04/12/25 21:22 Pulse Oximetry 100 04/12/25 21:22 Oxygen Delivery Room Air 04/12/25 21:22 Temperature 97.6 F 04/13/25 01:19 Pulse Rate 76 04/13/25 02:49 Respiratory Rate 17 04/13/25 02:49 Blood Pressure 121/73 04/13/25 02:49 Pulse Oximetry 99 04/13/25 02:49 Oxygen Delivery Room Air 04/13/25 01:19 MDM - Chest Pain MDM Narrative Medical decision making narrative: Patient presents with an episode of chest pain. In the emergency department they are afebrile with vital signs within normal limits. HEART SCORE History 2 highly suspicious 1 moderately suspicious 0 slightly suspicious History score [address] depression/elevation not due to LBBB, LVH, or digoxin [address] depression but LBBB, LVH, nonspecific repolarization changes 0 normal ECG score 0 Age 2 >/= 65 1 45-64 0 <45 Age score 0 Risk factors (HTN, hypercholesterolemia, DM, obesity with BMI >30, current smoker or cessation </=3mo), positive fam hx with parent or sibling with CVD before age 65, atherosclerotic disease (prior MA, PCI/CABG, CVA/TIA, or peripheral arterial disease) 2 >/= 3 risk factors or history of atherosclerotic dz 1 - 1-2 risk factors 0 no known risk factors Risk factor score 1 Initial Troponin 2 >3 times normal limit 1 1-3 times normal limit 0 less than or equal to normal limit Troponin score 0 Total HEART Score 2 Creatinine mildly elevated with no prior for comparison. Suspect a mild DULCE MARIA secondary to slight dehydration. Patient otherwise healthy and can PO hydrate. She is feeling thirsty. Requesting water. Successfully p.o. challenges. Repeat troponin WNL. She does have recent labs on her patient portal on her phone that show recent Cr 0.67. Stable for DC. Discussed results of patient's work up including EKG findings and DULCE MARIA. Advised to keep upcoming appt already scheduled with PCP. Also follows with rheumatology. Differential Diagnosis Differential diagnosis: Likely stable angina, unstable angina pectoris, atypical chest pain, st elevation myocardial infarction, costochondritis, chest pain, biliary colic and other (drug side effect, anxiety) Lab Data Attestation: I reviewed the patient's lab results. Lab results narrative: CBC with mild abnormalities on the differential but without anemia, thrombocytopenia, leukocytosis 04/12/25 21:28 04/12/25 21:28 Labs: Lab Results 04/12/25 04/13/25 Range/Units 21:28 00:30 WBC 8.0 (4.5-10.0) K/mm3 RBC 4.34 (4.2-5.4) M/mm3 Hgb 13.2 (12.0-15.0) g/dL Hct 39.6 (37.0-47.0) % MCV 91.2 (80-100) fl MCH 30.4 (26-34) pg MCHC 33.3 (32-36) g/dl RDW 11.8 (11.5-14.5) % Plt Count 295 (150-375) k/mm3 MPV 9.8 (7.4-10.4) fl Immature Gran % (Auto) 0.4 (0-0.5) % Neut % (Auto) 76.4 H (45.5-73.1) % Lymph % (Auto) 16.0 L (18.3-44.2) % [place] % (Auto) 5.7 (2.6-8.5) % Eos % (Auto) 1.0 (0-4.4) % Baso % (Auto) 0.5 (0.2-1.2) % Lymph # (Auto) 1.29 (0.9-3.2) K/mm3 [place] # (Auto) 0.5 (0.1-0.6) K/mm3 Eos # (Auto) 0.1 (0-0.3) K/mm3 Baso # (Auto) 0.0 (0.0-0.1) K/mm3 Abs Immat Gran (auto) 0.03 (0.00-0.031) K/mm3 Absolute Neuts (auto) 6.1 (1.3-6.7) K/mm3 Absolute Nucleated RBC 0.000 (0.0-0.012) K/mm3 Nucleated RBC % 0.0 (0.0-0.2) % PT 13.4 (11.1-14.7) Seconds INR 1.0 APTT 32.5 (22.3-36.8) Seconds Sodium 138 (137-145) mmol/L Potassium 3.7 (3.4-5.0) mmol/L Chloride 105 (98-107) mmol/L Carbon Dioxide 27 (22-30) mmol/L Anion Gap 6 (4-12) mmol/L BUN 14 (7-17) mg/dL Creatinine 1.09 H (0.7-1.0) mg/dL Estim Creat Clear Calc 70 ml/min Estimated GFR 60 (59 - ) Glucose 101 (65-110) mg/dL Calcium 9.0 (8.4-10.2) mg/dL Total Bilirubin 0.5 (0.2-1.3) mg/dL AST 27 (14-36) U/L ALT 22 (6-35) U/L Alkaline Phosphatase 56 (38-126) U/L Troponin I < 0.012 < 0.012 (0.000-0.034) ng/mL Total Protein 7.5 (6.3-8.2) g/dL Albumin 4.6 (3.5-5.1) g/dL Lipase 55 (23-300) U/L Imaging Data Attestation: I personally reviewed and interpreted this imaging study as follows: My impression: No acute intrathoracic process on my independent interpretation of chest x-ray ECG Data EKG #1: Attestation: I personally reviewed and interpreted this ECG as follows: ECG completion date: 10/04/25 ECG completion time: 21:19 Prior ECG tracings: not available for review (No prior for comparison) Interpretation: Sinus tachycardia at a rate of 103 beats per minute. WA interval 163. QRS 110. QT/QTC 340/447. Good R-wave progression across the precordial leads. No T- wave inversions. Incomplete RBBB given QRS less [id number]; RSR' M-shaped pattern in V1-V3; wide, slurred S wave in lateral leads (I, aVL, to a lesser extent V5-6). EKG #2: Attestation: I personally reviewed and interpreted this ECG as follows: ECG completion date: 04/13/25 ECG completion time: 00:27 Prior ECG tracings: available for review Interpretation: Normal sinus rhythm at a rate of 65 beats per minute. WA interval 174. QRS 112. QT/QTC 407/423. Good R-wave progression across the precordial leads. Normal axis. No T-wave inversions. Incomplete right bundle-branch block. Discharge Plan Discharge Clinical Impression: Chest pain, DULCE MARIA (acute kidney injury), Incomplete RBBB Patient Disposition: Home Condition: Stable Instructions: Antibiotic Form, Chest Pain (DC), Acute Kidney Injury (DC) Additional Instructions: Keep your upcoming appointment with your primary care provider. Return to the emergency department with any new or worsening symptoms. 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 You had very mild kidney dysfunction with the elevation of your creatinine and this is known as an acute kidney injury as we discussed the likely due to very mild dehydration and you are able to drink water which should improve this. Stay hydrated. Patient Language: Australian Prescriptions: No Action Vitamin 27 mg iron- 800 mcg tablet 1 tablet PO DAILY alum-mag hydroxide-simeth [Mylanta Maximum Strength] 400-400-40 mg/5 mL suspension 10 ml PO TID PRN (Reason: indigestion) Qty: 100 0RF Follow-up/Referrals: Vazquez,JAZZ Blanco [Non-Staff, Unknown] UNKNOWN,DOCTOR [Primary Care Provider] Stand Alone Forms: Work/School Release IP Time of Disposition: 02:43
[2025-04-13 02:49] VITALS: BP 121/73; PULSE 76; RESP 17; O2SAT 99
== END 2025-04-13 02:51 | disposition home or self-care (01) ==
PROVIDERS: Emergency Provider Student in an Organized Health Care Education/Training Program
DX: R07.9 Chest pain, unspecified (principal); N17.9 Acute kidney failure, unspecified; I45.10 Unspecified right bundle-branch block; J45.990 Exercise induced bronchospasm; M32.9 Systemic lupus erythematosus, unspecified; F41.9 Anxiety disorder, unspecified; R00.0 Tachycardia, unspecified; R94.31 Abnormal electrocardiogram [ECG] [EKG]
CPT/HCPCS: 36415; 71046; 80053; 83690; 84484; 85025; 85610; 85730; 93005; 99284